=== PATIENT | male | born 1930 | race Hispanic/Latino ===

== ENCOUNTER 2018-01-31 19:09 | Inpatient (IN) | payer OTHER ==
--- OUTSIDE RECORDS SUMMARY | 2018-01-31 19:11 | XMS REPORT | Clinical Summary ---
:1930 Author Organization [facility] Address [address] [place] [address] Care Team Providers Name Role Phone Zack Johnson MD Primary Care Provider Allergies Not on File Current Medications No known medications Active Problems No known active problems Encounters Date Type Specialty Care Team Description 11/26/2017 Office Visit General Surgery Moise Gomez Rectal mass (Primary Dx) ; MD Enio Adenomatous polyp of colon, unspecified part of colon after 01/30/2017 Social History Tobacco Use Types Packs/Day Years Used Date Never Assessed Sex Assigned at Date Recorded Not on file Last Filed Vital Signs Vital Sign Reading Time Taken Blood Pressure 161/75 11/26/2017 11:12 AM [employer] Pulse 56 11/26/2017 11:12 AM [employer] Temperature - - Respiratory Rate - - Oxygen Saturation - - Inhaled Oxygen Concentration - - Weight 78 kg (172 lb) 11/26/2017 11:12 AM [employer] Height 165.1 cm (5' 5") 11/26/2017 11:12 AM [employer] SU[employer] Body Mass Index 28.62 11/26/2017 11:12 AM [employer] Plan of Treatment Date Type Specialty Care Team Description 02/18/2018 Office Visit General Surgery Moise Gomez MD [address] [facility] [address] [place] [address] [id number] 03/09/2018 Surgery General Surgery Moise Gomez ROBOTIC ASSISTED MD Enio LAPAROSCOPIC LOW [address] [facility] COLON [place] [address] [place] [address] 03/09/2018 Procedure Pass General Surgery 03/09/2018 Hospital Encounter General Surgery Moise Gomez MD [address] [facility] [address] [place] [id number] Health Maintenance Due Date Last Done Comments ZOSTER VACCINE 1991 PNEUMOCOCCAL POLYSACCHARIDE VACCINE AGE 65 AND OVER 1996 PNEUMOCOCCAL-13 1996 INFLUENZA VACCINE 06/09/2017 Results Not on fileafter 01/30/2017 Insurance Payer Benefit Plan / Group Subscriber ID Type Phone Address VIANCA [facility] xxxxxxxxx HMO [phone] [place] [id number]
[2018-01-31 20:20] LABS: Absolute Lymphocytes (CBC) 1.1 K/uL (0.7-4.9); Absolute Monocytes 0.6 K/uL (0.1-1.3); Absolute Neutrophil 7.4 K/uL (1.8-8.0); Basophils % 0.7 % (0-1.3); Eosinophils % 1.3 % (0-4.4); Hematocrit 41.3 % (39.6-49.0); Lymphocytes % 11.9 % (15.3-44.8); MCV 88.5 fL (80-100); MPV 7.9 fL (7.6-11.3); Monocytes % 6.9 % (3.3-12.3); RBC Red Blood Cell Count 4.67 M/uL (4.33-5.43)
[2018-01-31] MEDS ORDERED: NA CHLORIDE 0.9% 1,000 ML ONE (20:30)
[2018-01-31] MEDS ORDERED: ONDANSETRON 4 MG/2 ML VIAL ONE (20:30)
[2018-01-31] MEDS ORDERED: MORPHINE 4 MG/ML SYR ONE (20:30)
[2018-01-31 20:32] LABS: Potassium 4.1 mEq/L (3.6-5.0)
[2018-01-31 20:38] LABS: Bilirubin Direct 0.1 mg/dL (0-0.2); Bilirubin Total 0.7 mg/dL (0.3-1.2); Protein, Total 6.8 g/dL (6.0-8.3)
--- NOTE | 2018-01-31 20:50 | RAD REPORT ---
EXAM DESCRIPTION: RAD - Chest Single View - 01/31/2018 8:32 pm CLINICAL HISTORY: Chest pain, abdominal pain COMPARISON: July 2017 TECHNIQUE: AP portable chest image was obtained 2012 hours . FINDINGS: Lungs are clear. Heart and vasculature are normal. No measurable pleural effusion and no p neumothorax. No gross bony abnormality seen. No acute aortic findings suspected. IMPRESSION: No acute cardiopulmonary process. No significant change from comparison.
[2018-01-31 21:07] LABS: Urine Blood NEGATIVE (NEG); Urine Glucose NEGATIVE (NEG); Urine Protein TRACE (NEG); Urine pH 5.5 (5.0-7.0)
[2018-01-31 21:20] LABS: Urine Bacteria NONE SEEN /HPF (NONE SEEN); Urine Culture Reflex Order NOT NEEDED; Urine RBC NONE SEEN /HPF (NONE SEEN)
--- NOTE | 2018-01-31 23:35 | EDPHYS ---
Physician Documentation [facility] Name: Alvaro Rivers Age: 87 yrs Sex: Male : 1930 Arrival Date: 01/31/2018 Time: 19:14 Bed 30 Private MD: Zack Gross R ED Physician Otoniel Seo HPI: 01/31 19:59 This 87 yrs old Male presents to ER via Ambulatory with complaints of General pkl Weakness, Fever. 19:59 The patient presents with abdominal pain that is diffuse, abdominal distention that is pkl diffuse. Onset: The symptoms/episode began/occurred yesterday. The symptoms radiate to back. Associated signs and symptoms: Pertinent positives: nausea. Historical: - Allergies: 19:38 No Known Allergies; aa1 - Home Meds: 19:38 metoprolol tartrate 50 mg Oral tab 1 tab 2 times per day [Active]; pantoprazole 40 mg aa1 oral TbEC 1 tab once daily [Active]; Pravachol 40 mg Oral tab 1 tab once daily [Active]; Plavix 75 mg Oral tab 1 tab once daily [Active]; - PMHx: 19:38 Hypertension; aa1 - PSHx: 19:38 stent x1; aa1 - Immunization history:: Flu vaccine is not up to date. - Social history:: Smoking status: Patient/guardian denies using tobacco, the patient reports quitting approximately 30 years ago. ROS: 19:59 Eyes: Negative for injury, pain, redness, and discharge, ENT: Negative for injury, pkl pain, and discharge, Neck: Negative for injury, pain, and swelling, Cardiovascular: Negative for chest pain, palpitations, and edema, Respiratory: Negative for shortness of breath, cough, wheezing, and pleuritic chest pain. 19:59 Abdomen/GI: Positive for abdominal pain, nausea, abdominal distension, of the right upper quadrant, left upper quadrant, right lower quadrant and left lower quadrant. 19:59 Back: Negative for acute changes. 19:59 : Negative for urinary symptoms. 19:59 MS/extremity: Negative for acute changes. 19:59 Skin: Negative for rash. 19:59 Neuro: Negative for altered mental status. Exam: 19:59 Head/Face: Normocephalic, atraumatic. Eyes: Pupils equal round and reactive to light, pkl extra-ocular motions intact. Lids and lashes normal. Conjunctiva and sclera are non-icteric and not injected. Cornea within normal limits. Periorbital areas with no swelling, redness, or edema. ENT: Nares patent. No nasal discharge, no septal abnormalities noted. Tympanic membranes are normal and external auditory canals are clear. Oropharynx with no redness, swelling, or masses, exudates, or evidence of obstruction, uvula midline. Mucous membranes moist. Neck: Trachea midline, no thyromegaly or masses palpated, and no cervical lymphadenopathy. Supple, full range of motion without nuchal rigidity, or vertebral point tenderness. No Meningismus. Chest/axilla: Normal chest wall appearance and motion. Nontender with no deformity. No lesions are appreciated. Cardiovascular: Regular rate and rhythm with a normal S1 and S2. No gallops, murmurs, or rubs. Normal PMI, no JVD. No pulse deficits. Respiratory: Lungs have equal breath sounds bilaterally, clear to auscultation and percussion. No rales, rhonchi or wheezes noted. No increased work of breathing, no retractions or nasal flaring. 19:59 Abdomen/GI: Inspection: distension, that is mild, Bowel sounds: normal, Palpation: soft, mild abdominal tenderness, in the right upper quadrant and left upper quadrant. 19:59 Back: Exam negative for acute changes. 19:59 : Exam negative for acute changes. 19:59 Musculoskeletal/extremity: Exam is negative for acute changes. 19:59 Skin: Exam negative for rash. 19:59 Neuro: Orientation: is normal, Mentation: is normal, Cranial nerves: grossly normal, Motor: is normal. Vital Signs: 19:38 BP 163 / 64; Pulse 62; Resp 18; Temp 98.7; Pulse Ox 96% on R/A; Weight 78.47 kg (R); aa1 Height 5 ft. 5 in. (165.10 cm); Pain 0/10; 21:13 BP 156 / 82; Pulse 60; Resp 17; Pulse Ox 97% on R/A; rk2 22:00 BP 173 / 72; Pulse 66; Resp 16; Pulse Ox 95% on R/A; rk2 23:53 BP 182 / 68; Pulse 64; Resp 17; Pulse Ox 95% on R/A; rk2 19:38 Body Mass Index 28.79 (78.47 kg, 165.10 cm) aa1 MDM: 19:48 Patient medically screened. pkl 23:31 Data reviewed: vital signs, nurses notes, lab test result(s), EKG, radiologic studies, pkl CT scan. ED course: Talked to Dr. Gross. Admit and consult Dr. Sawant ( Notified). 01/31 19:59 Order name: Amylase, Serum pkl 01/31 19:59 Order name: Basic Metabolic Panel pkl 01/31 19:59 Order name: CBC with Diff pkl 01/31 19:59 Order name: Creatinine for Radiology pk 01/31 19:59 Order name: Hepatic Function pk 01/31 19:59 Order name: Lipase pk 01/31 19:59 Order name: Urine Microscopic Only pk 01/31 20:30 Order name: CBC with Automated Diff; Complete Time: 20:32 EDMS 01/31 20:32 Order name: Basic Metabolic Panel; Complete Time: 21:12 EDMS 01/31 20:32 Order name: Lipase; Complete Time: 21:12 EDMS 01/31 20:38 Order name: Liver (Hepatic) Function; Complete Time: 21:12 EDMS 01/31 20:38 Order name: Amylase Level; Complete Time: 21:12 EDMS 01/31 20:47 Order name: Creatinine (Radiology Only); Complete Time: 21:12 EDMS 01/31 21:00 Order name: Urine Dipstick--Ancillary (enter results) em1 01/31 19:59 Order name: IV Saline Lock; Complete Time: 20:13 pk 01/31 19:59 Order name: Labs collected and sent; Complete Time: 20:13 pk 01/31 19:59 Order name: Urine Dipstick-Ancillary (obtain specimen); Complete Time: 20:59 pk 01/31 19:59 Order name: XRAY CXR (1 view) pk 01/31 19:59 Order name: CT Abd/Pelvis - W/Contrast pk 01/31 20:50 Order name: RAD; Complete Time: 21:12 EDMS 01/31 21:07 Order name: Urine Dipstick-Ancillary; Complete Time: 21:12 EDMS 01/31 21:21 Order name: Urine Microscopic Only; Complete Time: 22:53 EDMS 01/31 23:31 Order name: NG Tube; Complete Time: 00:20 pkl Administered Medications: 20:16 Drug: NS 0.9% 1000 ml Route: IV; Rate: 100 ml/hr; Site: right antecubital; rk2 02/01 00:58 Follow up: Response: No adverse reaction; IV Status: Infusion continued rk2 01/31 20:16 Drug: morphine 2 mg Route: IVP; Site: right antecubital; rk2 23:48 Follow up: Response: No adverse reaction rk2 20:16 Drug: Zofran 4 mg Route: IVP; Site: right antecubital; rk2 23:47 Follow up: Response: No adverse reaction rk2 Disposition: 01/31/18 23:34 Hospitalization ordered by Zack Gross for Inpatient Admission. Preliminary diagnosis is Abdominal pain. Small bowel obstruction. - Bed requested for Telemetry/MedSurg (Inpatient). - Status is Inpatient Admission. rk2 - Condition is Stable. - Problem is new. - Symptoms are unchanged. UTI on Admission? No Signatures: Dispatcher [employer] EDHI Stella Arevalo, RN Ginny Nuñez RN RN aa1 Otoniel Seo MD MD pkIsamar Todd RN RN rk2
--- NOTE | 2018-01-31 23:35 | ER ---
Nurse's Notes [facility] Name: Alvaro Rivers Age: 87 yrs Sex: Male : 1930 Arrival Date: 01/31/2018 Time: 19:14 Bed 30 Private MD: Zack Gross R Diagnosis: Abdominal pain. Small bowel obstruction Presentation: 01/31 19:34 Presenting complaint: Patient states: abd pain that radiates to back and fatigue since aa1 yesterday. Pt reports he felt like he may have had a fever but didn't check his temperature. Transition of care: patient was not received from another setting of care. Onset of symptoms was January 30, 2018. Care prior to arrival: None. 19:34 Method Of Arrival: Ambulatory aa1 19:34 Acuity: VIRGILIO 3 aa1 Triage Assessment: 19:38 General: Appears in no apparent distress. comfortable, Behavior is calm, cooperative, aa1 appropriate for age. 20:18 Pain: Denies pain. rk2 Historical: - Allergies: 19:38 No Known Allergies; aa1 - Home Meds: 19:38 metoprolol tartrate 50 mg Oral tab 1 tab 2 times per day [Active]; pantoprazole 40 mg aa1 oral TbEC 1 tab once daily [Active]; Pravachol 40 mg Oral tab 1 tab once daily [Active]; Plavix 75 mg Oral tab 1 tab once daily [Active]; - PMHx: 19:38 Hypertension; aa1 - PSHx: 19:38 stent x1; aa1 - Immunization history:: Flu vaccine is not up to date. - Social history:: Smoking status: Patient/guardian denies using tobacco, the patient reports quitting approximately 30 years ago. Screenin:17 Abuse screen: Denies threats or abuse. Nutritional screening: No deficits noted. rk2 Tuberculosis screening: No symptoms or risk factors identified. Fall Risk IV access (20 points). Assessment: 20:18 General: Appears in no apparent distress. well developed, well nourished, Behavior is rk2 calm, cooperative. Pain: Denies pain. Neuro: Level of Consciousness is alert, obeys commands, Oriented to person, place, time, situation. Respiratory: Airway is patent Respiratory effort is even, unlabored, Respiratory pattern is regular, symmetrical. GI: Abdomen is distended, Abd is non tender X 4 quads Reports bloating. Derm: Skin is pink, warm \T\ dry. 20:21 Reassessment: Pt. completed oral contrast... CT notified. rk2 21:10 Reassessment: Pt. resting in room, family \T\ bedside... Iv fluids infusing. Pt. appears rk2 to be in no obvious distress. Voiced no needs \T\ this time. 22:42 Reassessment: Pt. is resting in room \T\ this time, family \T\ bedside. Pt. appears to be rk 2 in no obvious distress... no needs voiced. Waiting results. 02/01 00:15 Reassessment: NG tube placed right nostril and hooked up to low interm. suction. rk2 Verified by wilfredo. return and air bolus. 00:33 Reassessment: Report called to Elo AREVALO... pt. to be transported to [place] [address] rk2 by tech. Vital Signs: 01/31 19:38 BP 163 / 64; Pulse 62; Resp 18; Temp 98.7; Pulse Ox 96% on R/A; Weight 78.47 kg (R); aa1 Height 5 ft. 5 in. (165.10 cm); Pain 0/10; 21:13 BP 156 / 82; Pulse 60; Resp 17; Pulse Ox 97% on R/A; rk2 22:00 BP 173 / 72; Pulse 66; Resp 16; Pulse Ox 95% on R/A; rk2 23:53 BP 182 / 68; Pulse 64; Resp 17; Pulse Ox 95% on R/A; rk2 19:38 Body Mass Index 28.79 (78.47 kg, 165.10 cm) aa1 ED Course: 19:14 Patient arrived in ED. es 19:15 Zack Gross MD is Private Physician. es 19:36 Triage completed. aa1 19:38 Arm band placed on left wrist. Patient placed in an exam room, on a stretcher. aa1 19:41 Isamar Stevenson RN is Primary Nurse. rk2 19:48 Otoniel Seo MD is Attending Physician. pkl 20:13 Initial lab(s) drawn, by ED staff, sent to lab. Inserted saline lock: 22 gauge in right dh3 antecubital area, using aseptic technique. Blood collected. 20:16 XRAY CXR (1 view) Sent. rk2 20:17 Patient has correct armband on for positive identification. Placed in gown. Bed in low rk2 position. Call light in reach. 20:28 X-ray completed. Portable x-ray completed in exam room. Patient tolerated procedure kp1 well. 23:33 Zack Gross MD is Hospitalizing Provider. pkl 23:47 CT Abd/Pelvis - W/Contrast Sent. rk2 02/01 00:58 No provider procedures requiring assistance completed. Patient admitted, IV remains in rk2 place. Administered Medications: 01/31 20:16 Drug: NS 0.9% 1000 ml Route: IV; Rate: 100 ml/hr; Site: right antecubital; rk2 02/01 00:58 Follow up: Response: No adverse reaction; IV Status: Infusion continued rk2 01/31 20:16 Drug: morphine 2 mg Route: IVP; Site: right antecubital; rk2 23:48 Follow up: Response: No adverse reaction rk2 20:16 Drug: Zofran 4 mg Route: IVP; Site: right antecubital; rk2 23:47 Follow up: Response: No adverse reaction rk2 Outcome: 23:34 Decision to Hospitalize by Provider. pkl 02/01 00:58 Admitted to Med/surg rk2 Condition: good Instructed on the need for admit. 00:59 Patient left the ED. rk2 Signatures: Ginny Simmons RN RN aa1 Otoniel Seo MD MD pkl Marion Chan Kathy 1 Marry Alcala 3 Isamar Stevenson RN RN rk2
[2018-01-31] MEDS: D5 0.45 NS 1,000 ML IV SCH (23:45)
[2018-01-31] MEDS ORDERED: PROMETHAZINE 25 MG/ML VIAL IV PRN (23:52)
[2018-02-01 01:08] VITALS: BMI 28.3
[2018-02-01] MEDS ORDERED: LABETALOL 20 MG/4ML SYRINGE IV ONE (01:12)
[2018-02-01] MEDS: D5 0.45 NS 1,000 ML IV SCH ×5 (01:32→23:45)
[2018-02-01] MEDS: METRONIDAZOLE 500mg IVPB 500 MG/100 ML BAG IV SCH ×4 (01:33→17:15)
[2018-02-01] MEDS: Levofloxacin500mg IV 500 MG/100 ML BAG IV SCH (02:25)
[2018-02-01 04:18] LABS: Absolute Neutrophil 12.1 K/uL (1.8-8.0); Basophils % 1.1 % (0-1.3); Eosinophils % 0.3 % (0-4.4); Hematocrit 39.8 % (39.6-49.0); Lymphocytes % 7.2 % (15.3-44.8); MCH 29.7 pg (27.0-35.0); MCV 89.8 fL (80-100); MPV 8.3 fL (7.6-11.3); Monocytes % 6.8 % (3.3-12.3); RBC Red Blood Cell Count 4.43 M/uL (4.33-5.43)
[2018-02-01 04:36] LABS: Potassium 3.7 mEq/L (3.6-5.0)
--- NOTE | 2018-02-01 07:50 | RAD REPORT ---
EXAM DESCRIPTION: CT - Abdomen Pelvis W Contrast - 01/31/2018 10:31 pm CLINICAL HISTORY: Abdominal pain, abdominal distention. A preliminary written report was provided at the time of the study, and the report was reviewed prio r to final dictation. COMPARISON: CT study July 2017 TECHNIQUE: Biphasic, helical CT imaging of the abdomen and pelvis was performed following 100 ml non -ionic IV contrast. Oral contrast was given. All CT scans are performed using dose optimization technique as appropriate and may include automated exposure control or mA/KV adjustment according to patient size. FINDINGS: No suspicious findings in the lung bases. The liver, spleen, and pancreas show no suspicious findings. Gallbladder and biliary tree are also wi thout suspicious finding. Symmetric renal function is seen with no hydronephrosis or suspicious renal mass. No pyelonephritis o r acute renal parenchymal process. No urinary bladder abnormality. Prostate gland and seminal vesicle s within normal limits. Stomach is distended by retained oral contrast. No gastric wall thickening or mass. The majority of t he oral CT contrast remains within the stomach. CT contrast has reached the distal ileum. Colon is mo stly decompressed. Left-side is redundant. An active colon process is not suspected. Appendix is not clearly identified. Proximal small bowel loops of the jejunum and proximal most ileum are dilated. Th ere is a transition point in the right mid abdomen without a discrete mass. No wall thickening or adj acent inflammatory stranding. No free air, free fluid or inflammatory stranding. No mass or bulky ly mphadenopathy. Minimal amounts of fat extends into the origin of each inguinal canal. No adrenal abno rmality. Prominent disc and bony degenerative changes are present. Vascular calcifications present without an acute component. IMPRESSION: Small bowel obstruction pattern is present with a relatively smooth transition in the ri ght mid abdomen proximal ileum level. Near the transition site there is no mass or definitive etiology. No inflammatory stranding in this r egion. No free air, abscess or other surgically emergent finding.
--- NOTE | 2018-02-01 11:18 | RAD REPORT ---
EXAM DESCRIPTION: RAD - Abdomen W Erect - 02/01/2018 11:07 am CLINICAL HISTORY: Small bowel obstruction, abnormal CT study COMPARISON: CT study August 03 TECHNIQUE: Supine and upright views of the abdomen were obtained. FINDINGS: Tip of the NG tube is at the GE junction. Stomach is decompressed. Contrast is present within the urinary bladder from the earlier CT study. There is some diluted remna nt contrast within the GI tract as well. Oral CT contrast is seen in the left side of the colon indic ating that the CT contrast has migrated passed any small bowel obstruction. The patient continues to have mildly dilated proximal small bowel loops. Air-fluid levels are identifiable. No free air or pneumatosis. No extravasation of contrast. Lumbar spine degenerative changes are present. IMPRESSION: Proximal small bowel loops remain prominent. No progressive small bowel obstruction. No free air, pneumatosis or other surgically emergent finding. The oral CT contrast has reached the left side of the colon indicating transit distal to any transiti on point or partial obstruction of the small bowel.
[2018-02-01] MEDS: HYDRALAZINE HCL 20 MG/ML VIAL IV PRN ×2 (11:32→20:38)
--- NOTE | 2018-02-01 14:16 | CON ---
Date of Consultation: 01/31/2018 Reason: Small bowel obstruction. History Of Present Illness: The patient is an 87-year-old gentleman presented to the emergency room with abdominal distention, some nausea but no vomiting. He did have a bowel movement yesterday and s tates that he is passing minimal flatus. No sore throat, runny nose, cough, headaches, or dizziness. No chest pain. No fever or chills. The patient had an unknown type of colon surgery and appendect reyna for perforated appendicitis a long time ago. Review of Systems: Otherwise unremarkable. Past Medical History: Significant for hypertension. Past Surgical History: Colon resection or abdominal surgery x2. Details unavailable. These surgeri es were done greater than 40 years ago and family does not know. Allergies: NO ALLERGIES. Social History: He does not smoke. Does not drink alcohol. Physical Examination: Vital Signs: Stable. He is afebrile. General: He is awake, alert, orient x3. Head and Neck: Cranial nerves 2 through 12 grossly within normal limits. No neck masses. No JVD. Throat clear. Neck is supple. Chest: Clear. Heart: S1, S2. Abdomen: Distended hypoactive bowel sounds. Minimal tenderness, but no rebound, rigidity, or guardi ng. No abdominal wall hernia appreciated. Extremity: Adequately perfused. Nontender. Neuro: Nonfocal. Laboratory Data: His white count this morning is 14.3 with a left shift. Chemistry, he is not acido tic. Glucose is 162. CT of the abdomen and pelvis reviewed with Dr. Mcmillan and essentially shows s mall bowel obstruction pattern with a relatively smooth transition in the right mid abdomen proximal ileum level. Near the incision site, there is no mass or definitive etiology. No inflammatory stran ding in this region. No free air, abscess or other surgically emergent finding. Assessment: Small-bowel obstruction. Recommendation: Continue n.p.o. NG tube, IV fluid, IV antibiotic. We will get an abdominal x-ray to monitor the progress of the bowel obstruction. The family states that he is scheduled to see Dr. Jonas prabhakar at [facility] for colon surgery because he had something in his colon that Dr. Brooks found, the details of that are unavailable at this time. My recommendation would be to get more informatio n from Dr. Brooks's office as soon as we can and then if the patient improves with conservative measure s, he can follow up at [facility] should he not improve with conservative measures and need a surgery then I think he should be transferred to [facility] for definitive surgery for his colon issues as wel l as his obstructive issue. Plan of care was discussed in detail with Dr. Gross. AMBROSIO/JAYNA Voice ID: [id number] Report ID: [id number]
--- NOTE | 2018-02-01 18:25 | HP ---
Date of Admission: 01/31/2018 Chief Complaint: Abdominal pain. History Of Present Illness: An 87-year-old male was brought to the emergency room because of 1 day o nset of abdominal pain radiating to the back. The patient had evaluation done in the emergency room. I was told that CT scan showed evidence of small bowel obstruction. The patient is admitted. Ther e is no history of vomiting of blood. No history of fever, chills, rigors. Past Medical History: Positive for hypertension. Family History: Noncontributory. Personal History: Nonsmoker. Allergies: NO KNOWN ALLERGIES. Home Medicines: Lopressor, Protonix, Pravachol, and Plavix. The patient has history of coronary artery disease and right coronary artery stenting in the past. Physical Examination: General: Revealed 87-year-old male, comfortable at rest. HEENT: Negative. Neck: Supple. JVD negative. Chest: Clear. Heart: Regular. Abdomen: Mild tenderness in the umbilical area. No palpable mass. Extremities: No edema. Neurologic: Negative. Laboratory Data: White count [id number] scan of the abdomen report not available. Chest x-ray showed no evidence of pneumonia or acute process. Assessment: 1.Small bowel obstruction as per ER physician. 2.History of gastrointestinal workup in July, however, reports are not available. This was don e by Dr. Brooks. 3.Known coronary artery disease status post stenting. 4.Hypertension. Plan: N.p.o. NG suction. Hold Plavix. ASIA/MODL Voice ID: [id number]
[2018-02-01] MEDS: PANTOPRAZOLE 40 MG INJ IVP SCH (22:26)
[2018-02-02] MEDS: MORPHINE 4 MG/ML SYR IV PRN ×4 (00:28→23:31)
[2018-02-02] MEDS: METRONIDAZOLE 500mg IVPB 500 MG/100 ML BAG IV SCH ×5 (01:16→23:23)
--- NOTE | 2018-02-02 01:41 | HP ---
Date of Admission: 01/31/2018 Chief Complaint: Abdominal pain radiating to back. History Of Present Illness: An 87-year-old male was brought to the emergency room with abdominal cata n radiating to back. The patient had a CAT scan and this showed evidence of small bowel obstruction. The patient was seen by Dr. Sawant. Full H and P was dictated earlier. ASIA/JAYNA Voice ID: [id number]
[2018-02-02] MEDS: Levofloxacin500mg IV 500 MG/100 ML BAG IV SCH ×2 (01:51→23:23)
[2018-02-02] MEDS: D5 0.45 NS 1,000 ML IV SCH ×3 (06:09→23:45)
[2018-02-02] MEDS: SODIUM CHLORIDE 0.9% 10ML INJ IV PRN (09:57)
[2018-02-02] MEDS: PANTOPRAZOLE 40 MG INJ IVP SCH ×2 (09:57→21:43)
--- NOTE | 2018-02-02 10:20 | RAD REPORT ---
EXAM DESCRIPTION: RAD - Abdomen W Erect - 02/02/2018 9:09 am CLINICAL HISTORY: Abdominal pain FINDINGS: Free air is not seen beneath the diaphragm. A nasogastric tube has its tip 3 centimeters into the stomach. Contrast is present within the colon. Several mildly dilated loops of small bowel are present mildly improved from the prior exam Mild improvement in the mild partial small bowel obstruction IMPRESSION: Mild improvement in the mild partial small bowel obstruction
[2018-02-02] MEDS: HYDRALAZINE HCL 20 MG/ML VIAL IV PRN ×2 (16:51→23:31)
--- NOTE | 2018-02-02 17:54 | PN ---
Date of Progress Note: 02/02/2018 Subjective: The patient is passing gas. Had a bowel movement. Objective: Vital Signs: Stable. Afebrile. Abdomen: Less distended. Soft. Positive bowel sounds. Diagnostic Data: Abdominal x-ray shows improvement. Assessment: Small-bowel obstruction, slowly improving. Recommendation: Continue IV fluids and antibiotics. We will clamp the NG tube and start the patient on sips of clear liquids. Hopefully discharge in 24 to 48 hours. AMBROSIO/JAYNA Voice ID: [id number] Report ID: [id number]
--- NOTE | 2018-02-02 20:45 | CON ---
Date of Consultation: 02/02/2018 Reason For Consultation: Bowel obstruction. GI bleeding. History Of Present Illness: Mr. Rivers is an 87-year-old gentleman, who presented to the hospital wit h what seems to be a small bowel obstruction. He had nausea and vomiting. However, he is already fe eling better. NG tube is aspirating dark biliary material. However, at the same time, he is reporte d to have GI bleeding. The GI bleeding was bright red blood. Had only 1 episode. Has not been recu rring. Denies any weakness, dizziness. Denies any abdominal pain at this time. Denies any other ne w onset of hematemesis, melena, or hematochezia since that time. CT scan showed small bowel obstruct ion pattern. The patient had undergone a colonoscopy on November 12 of this year with finding of numerous and flat polyposis. He had previous 2 colectomies due to complicated polyposis. 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 Consult was initiated with colorectal surgeon Dr. Santa with probable creation of a J pouch. Past Medical History: Hypertension, diabetes. Past Surgical History: Numerous polyposis and colectomy x2. Family History: Denies any gastrointestinal malignancy in the family, although a lot of family membe rs did not have any checkup for colorectal neoplasia. Social History: No alcohol or tobacco. Psychiatric History: None. Allergies: REVIEWED IN THE CHART. Medications: Reviewed in the chart. Review of Systems: General: Prior to acute onset of his illness, no fever, chills. No weight loss weight gain. No jose nge of appetite. GI: As elaborated above. Hematologic: Denies any history of jaundice, hepatitis, any other liver issue. Pulmonary: No shortness of breath, cough or expectoration. Cardiac: No palpitation, heart murmur. No orthopnea or dyspnea. Genitourinary: Just dysuria and low flow state. Musculoskeletal: Some arthralgia and stiffness, especially in the morning. Neuropsychiatric: None. Neuroendocrine: None. Physical Examination: General: Elderly male, at this time. No other acute distress noted. Hemodynamic respiratory profil e within normal range. HEENT: Atraumatic, normocephalic. No pallor. No icterus. No temporal wasting. No facial wasting. Neck: Supple. No lymphadenopathy. Trachea central in position. Chest: Clear to auscultation percussion. Cardiovascular: Normal S1, S2. No S3, no S4. Abdomen: Soft, nontender, nondistended. Excellent bowel sounds in all quadrants. No hepatomegaly. No splenomegaly. No rebound tenderness. Scars are well healed. No discharge. Extremities: Upper and lower extremities are normal, symmetrical. Dermatologic: Examination normal. Neurologic: Alert and oriented x3. Intact memory, mentation, and judgment. Diagnostic Data: Reviewed and analyzed. CT scan as elaborated above. Hemoglobin and hematocrit 13 and 39 respectively. Impression/plan/recommendation: Mr. Rivers is an 87-year-old gentleman with bright red blood. This c ould be diverticular bleeding or could be temporary volvulus that has resolved. At this time, patitristan coto seems to be doing fine. We can start him to try on clear liquid diet. If he tolerates, NG tube co uld be discontinued. Also agree with empiric antibiotic. With respect to numerous colon polyps and also past colectomy x2, he will be most benefitted from por penny colectomy with probably preservation of anal sphincter and J pouch creation. Consult was already initiated Dr. Gomez, and the patient is to follow through this. This could be done once his acute co ndition has resolved. For the time being, continue to treat him with antibiotics, since especially he has an elevated white cell count. We plan not to do any invasive procedure while he is in acute stage since he has signif icant colorectal pathology already known to us. However if he has exsanguinating bleeding, we will n ot hesitate to go back in. I had a discussion with the patient. His questions were answered to his satisfaction as much as I co uld in [place]. LORENZA/JAYNA Voice ID: [id number] Report ID: [id number]
--- NOTE | 2018-02-03 01:40 | PN ---
The patient had a small bowel movement and he is passing gas, which probably is indicative of improve ment of his bowel obstruction. There is no sammi blood . However, GI consultation has bee n done. The patient's x-ray shows improvement of the bowel obstruction. He will have repeat assessm ent and x-ray tomorrow. ASIA/JAYNA Voice ID: [id number] Report ID: [id number]
[2018-02-03] MEDS: METRONIDAZOLE 500mg IVPB 500 MG/100 ML BAG IV SCH ×4 (06:10→23:18)
[2018-02-03] MEDS: D5 0.45 NS 1,000 ML IV SCH ×4 (06:14→23:20)
--- NOTE | 2018-02-03 06:34 | PN ---
The patient's abdomen is soft and he has good bowel sounds; however, he did not have any bowel moveme nt. The patient will have repeat x-ray today to see whether there is further reduction of bowel obst ruction. ASIA/JAYNA Voice ID: [id number] Report ID: [id number]
[2018-02-03] MEDS: SODIUM CHLORIDE 0.9% 10ML INJ IV PRN (08:41)
[2018-02-03] MEDS: PANTOPRAZOLE 40 MG INJ IVP SCH ×2 (08:41→20:44)
[2018-02-03] MEDS: HYDRALAZINE HCL 20 MG/ML VIAL IV PRN (08:41)
[2018-02-03] MEDS: ACETAMINOPHEN 500 MG TAB PO PRN ×2 (12:34→20:43)
--- NOTE | 2018-02-03 13:46 | PN ---
Date of Progress Note: 02/03/2018 Subjective: The patient is awake, alert, no complaint, passing gas. NG tube he accidentally pulled out. Tolerating clear liquids. His residuals are minimal. Objective: Vital Signs: Stable, afebrile. Abdomen: Benign, soft, nondistended, nontender. Positive bowel sounds. Assessment: Small bowel obstruction, resolved. Recommendations: I reviewed the consultation by Todd. The patient has what appears to be familial p olyposis and he is scheduled for a total colectomy in [place] and we should proceed with that in [facility] as he may need a J pouch creation. As far as his small bowel obstruction, we will advance his di et when he is tolerating diet and he is cleared from Surgery for discharge followup at the [facility]. AMBROSIO/JAYNA Voice ID: [id number] Report ID: [id number]
[2018-02-03] MEDS: Levofloxacin500mg IV 500 MG/100 ML BAG IV SCH (23:13)
[2018-02-04 01:22] VITALS: O2SAT 95
[2018-02-04] MEDS: HYDRALAZINE HCL 20 MG/ML VIAL IV PRN ×2 (03:58→08:47)
[2018-02-04] MEDS: D5 0.45 NS 1,000 ML IV SCH (03:59)
[2018-02-04 04:22] LABS: Absolute Lymphocytes (CBC) 1.4 K/uL (0.7-4.9); Absolute Monocytes 0.9 K/uL (0.1-1.3); Absolute Neutrophil 2.7 K/uL (1.8-8.0); Basophils % 0.9 % (0-1.3); Eosinophils % 6.5 % (0-4.4); Hematocrit 37.1 % (39.6-49.0); Lymphocytes % 25.4 % (15.3-44.8); MCV 89.5 fL (80-100); MPV 8.4 fL (7.6-11.3); Monocytes % 16.5 % (3.3-12.3); RBC Red Blood Cell Count 4.15 M/uL (4.33-5.43)
[2018-02-04 05:00] VITALS: TEMP 98.2
[2018-02-04 05:02] LABS: Blood Morphology Comment NOT SEEN (NOT SEEN); Platelet Estimate ADEQ; Urine White Blood Cell Casts OK
[2018-02-04] MEDS: METRONIDAZOLE 500mg IVPB 500 MG/100 ML BAG IV SCH ×2 (06:34→11:23)
[2018-02-04] MEDS: SODIUM CHLORIDE 0.9% 10ML INJ IV PRN (08:04)
[2018-02-04] MEDS: PANTOPRAZOLE 40 MG INJ IVP SCH (08:04)
[2018-02-04] MEDS: ACETAMINOPHEN 500 MG TAB PO PRN (09:50)
--- NOTE | 2018-02-04 12:07 | PN ---
Date of Progress Note: 02/04/2018 Subjective: The patient is awake, alert, tolerating full liquids, having bowel movements. Objective: Vital Signs: Stable. Afebrile. Abdomen: Completely benign. Assessment: Small bowel obstruction, resolved. Recommendations: The patient is cleared from Surgery for discharged. Follow up with colorectal surg snehal in [place] for total colectomy. /MODL Voice ID: [id number] Report ID: [id number]
[2018-02-04 12:55] VITALS: BP 154/78
--- NOTE | 2018-02-28 23:44 | DS ---
Date of Discharge: 02/04/2018 Final Diagnoses: 1.Small bowel obstruction. 2.Recently diagnosed colon cancer. 3.Known coronary artery disease. 4.Status post angioplasty. 5.Hypertension. Hospital Course: This 87-year-old male was brought to the emergency room because of abdominal pain. He had a CAT scan done which showed evidence of small bowel obstruction. The patient had NG tube in sertion and suction as well as surgical consultation. The patient showed improvement over the next f ew days with a decreased abdominal distention. Eventually, the patient was discharged home on 02/04. He still had unresected colon cancers. The patient was advised to follow up with his surgeon as in dicated in the past. Laboratory Data: Please refer to the chart. ASIA/JAYNA Voice ID: [id number] Report ID: [id number]
== END 2018-02-04 13:53 | disposition home or self-care (01) | DRG 389 ==
LOC: ER 19:09 → ERHOLD 23:44 → 4TH 02-01 00:15
PROVIDERS: ADMIT Internal Medicine; ATTEND Internal Medicine
DX: K56.609 Unspecified intestinal obstruction, unspecified as to partial versus complete obstruction (principal); K92.2 Gastrointestinal hemorrhage, unspecified; D12.6 Benign neoplasm of colon, unspecified; I10 Essential (primary) hypertension; E11.9 Type 2 diabetes mellitus without complications
CPT/HCPCS: 36415; 71045; 74019; 74177; 80048; 80076; 81003; 81015; 82150; 83690; 85025; 96361; 96374; 96375; 99285; C9113; J0360; J2405; J7030; Q9967

== ENCOUNTER 2018-02-19 21:45 | Inpatient (IN) | payer OTHER ==
--- OUTSIDE RECORDS SUMMARY | 2018-02-19 21:48 | XMS REPORT | Clinical Summary ---
:1930 Author Organization [facility] Address [address] [place] [address] Care Team Providers Name Role Phone Zack Johnson MD Primary Care Provider Allergies No Known Allergies Current Medications Prescription Sig. Disp. Refills Start Date End Date Status lisinopril Take 20 mg by Active (PRINIVIL,ZESTRIL) 20 mg mouth daily. tablet clopidogrel (PLAVIX) 75 mg Take 75 mg by Active tablet mouth daily. pravastatin (PRAVACHOL) 40 Take 40 mg by Active MG tablet mouth daily. pantoprazole (PROTONIX) 40 Take 40 mg by Active MG EC tablet mouth daily. metoprolol tartrate Take 50 mg by Active (LOPRESSOR) 50 mg tablet mouth 2 (two) times a day. bimatoprost (LUMIGAN) 0.01 1 drop as needed. Active % ophthalmic drops Active Problems No known active problems Encounters Date Type Specialty Care Team Description 02/16/2018 Pre-Admit Testing Pre-Admission Moise Gomez Preop testing Appointment Testing MD Enio (Primary Dx) 02/16/2018 Office Visit General Surgery Moise Gomez MD Alagugurusamy, Virginia Burnett, NP-C 02/16/2018 Orders Only General Surgery Moise Gomez MD 11/26/2017 Office Visit General Surgery Moise Gomez Rectal mass (Primary Dx) ; MD Enio Adenomatous polyp of colon, unspecified part of colon after 02/18/2017 Social History Tobacco Use Types Packs/Day Years Used Date Former Smoker Smokeless Tobacco: Never Used Alcohol Use Drinks/Week oz/Week Comments Yes Sex Assigned at Date Recorded Not on file Last Filed Vital Signs Vital Sign Reading Time Taken Blood Pressure 163/72 02/16/2018 12:42 PM CDT Pulse 55 02/16/2018 12:42 PM CDT Temperature 35.4 C (95.8 F) 02/16/2018 12:42 PM CDT Respiratory Rate 18 02/16/2018 12:42 PM CDT Oxygen Saturation 96% 02/16/2018 12:42 PM CDT Inhaled Oxygen Concentration - - Weight 77.1 kg (170 lb) 02/16/2018 12:42 PM CDT Height 162.6 cm (5' 4") 02/16/2018 12:42 PM CDT Body Mass Index 29.18 02/16/2018 12:42 PM CDT Plan of Treatment Date Type Specialty Care Team Description 02/16/2018 Anesthesia Event General Surgery Vu Gant, EMERGENCY PHYSICIAN [address] [facility] [address] [place] [address] 03/09/2018 Surgery General Surgery Moise Gomez ROBOTIC ASSISTED MD Enio LAPAROSCOPIC LOW [address] [facility] [address] [place], [place] [id number] 03/09/2018 Procedure Pass General Surgery 03/09/2018 Hospital Encounter General Surgery Moise Gomez MD [address] [facility] [address] [place], [place] [id number] Health Maintenance Due Date Last Done Comments ZOSTER VACCINE 1991 PNEUMOCOCCAL POLYSACCHARIDE VACCINE AGE 65 AND OVER 1996 PNEUMOCOCCAL-13 1996 INFLUENZA VACCINE 06/09/2018 Results Estimated GFR (02/16/2018 12:39 PM) Component Value Ref Range GFR Non Af Amer 57 (A) mL/min/1.73 m2 GFR Af Amer 69 mL/min/1.73 m2 Comment: Chronic kidney disease: <60 mL/min/1.73m2 Kidney failure: <15 mL/min/1.73m2 The estimated GFR is calculated from the IDMS-traceable Modification of Diet in Renal Disease Equation. The accuracy of the calculation is poor when the creatinine is normal. Calculated values >90 mL/min/1.73m2 are not reported. This equation has not been validated in children (<18 years), women, the elderly (>70 years), or ethnic groups other than Caucasians and Americans. Specimen Performing Laboratory Plasma specimen [facility] DEPARTMENT OF PATHOLOGY AND GENOMIC MEDICINE [address] [place] [id number] CBC with platelet and differential (02/16/2018 12:39 PM) Component Value Ref Range WBC 6.97 4.50 - 11.00 k/uL RBC 4.31 (L) 4.40 - 6.00 m/uL HGB 13.2 (L) 14.0 - 18.0 g/dL HCT 39.9 (L) 41.0 - 51.0 % MCV 92.6 82.0 - 100.0 fL MCH 30.6 27.0 - 34.0 pg MCHC 33.1 31.0 - 37.0 g/dL RDW - SD 45.1 37.0 - 55.0 fL MPV 9.9 8.8 - 13.2 fL Platelet count 247 150 - 400 k/uL Nucleated RBC 0.00 /100 WBC Neutrophils 61.0 39.0 - 69.0 % Lymphocytes 23.1 (L) 25.0 - 45.0 % Monocytes 10.2 (H) 0.0 - 10.0 % Eosinophils 4.0 0.0 - 5.0 % Basophils 1.1 (H) 0.0 - 1.0 % Immature granulocytes 0.6Comment: "Immature granulocytes" 0.0 - 1.0 % (promyelocytes, myelocytes, metamyelocytes) Specimen Performing Laboratory Blood [facility] DEPARTMENT OF PATHOLOGY AND [facility] MEDIC[facility] [address] [place] [id number] Type and screen (02/16/2018 12:39 PM) Component Value Ref Range ABO grouping O Rh type POS Antibody screen (gel) NEG Specimen Performing Laboratory Blood [facility] DEPARTMENT OF PATHOLOGY AND [facility] [address] [place] [id number] Comprehensive metabolic panel (02/16/2018 12:39 PM) Component Value Ref Range Sodium 139 135 - 148 mEq/L Potassium 5.1 (H) 3.5 - 5.0 mEq/L Chloride 99 98 - 112 mEq/L CO2 29 24 - 31 mEq/L Anion gap 11 7 - 15 mEq/L Comment: Starting from February , anion gap calculation no longer incorporates potassium. Please note the change. BUN 13 8 - 23 mg/dL Creatinine 1.2 0.7 - 1.2 mg/dL Glucose 101 (H) 65 - 99 mg/dL Calcium 9.2 8.8 - 10.2 mg/dL Protein 6.7 6.3 - 8.3 g/dL Comment: 4.6-7.0 g/dL 1 week 4.4-7.6 g/dL 7 months-1year5.1-7.3 g/dL 1-2 years5.6-7.5 g/dL >3 years6.0-8.0 g/dL 18-150 6.3-8.3 g/dL Albumin 3.4 (L) 3.5 - 5.0 g/dL A/G ratio 1.0 0.7 - 3.8 Alkaline phosphatase 69 40 - 129 U/L AST 24 10 - 50 U/L ALT 19 5 - 50 U/L Total bilirubin 0.3 0.0 - 1.2 mg/dL Specimen Performing Laboratory Plasma specimen [facility] DEPARTMENT OF PATHOLOGY AND GENOMIC MEDICINE [address] [place] [id number] after 02/18/2017 Insurance Payer Benefit Plan / Group Subscriber ID Type Phone Address [facility] x[facility] O [phone] [place] [phone]
[2018-02-19] MEDS ORDERED: NA CHLORIDE 0.9% 1,000 ML ONE (23:06)
[2018-02-19] MEDS ORDERED: ACETAMINOPHEN 500 MG TAB ONE (23:06)
[2018-02-19 23:10] LABS: Absolute Monocytes 2.1 K/uL (0.1-1.3); Absolute Neutrophil 16.4 K/uL (1.8-8.0); Basophils % 0.4 % (0-1.3); Hematocrit 39.2 % (39.6-49.0); MCH 29.8 pg (27.0-35.0); MCV 88.7 fL (80-100); MPV 8.1 fL (7.6-11.3); Monocytes % 10.6 % (3.3-12.3); RBC Red Blood Cell Count 4.42 M/uL (4.33-5.43)
[2018-02-19 23:22] LABS: Potassium 3.6 mEq/L (3.6-5.0)
[2018-02-19 23:28] LABS: Albumin 3.8 g/dL (3.2-5.5); Bilirubin Direct 0.5 mg/dL (0-0.2); Bilirubin Total 1.9 mg/dL (0.3-1.2)
[2018-02-19 23:57] LABS: Urine Blood 3+ (NEG); Urine Glucose NEGATIVE (NEG); Urine Protein 3+ (NEG)
[2018-02-20 00:02] LABS: Urine Bacteria LOADED /HPF (NONE SEEN); Urine Culture Reflex Order REFLEXED; Urine RBC >50 /HPF (NONE SEEN)
[2018-02-20] MEDS ORDERED: CEFTRIAXONE/SWI 1gm 2 GM/20 ML SYR ONE (00:30)
[2018-02-20] MEDS ORDERED: NA CHLORIDE 0.9% 1,000 ML ONE (00:31)
--- NOTE | 2018-02-20 00:46 | ER ---
Nurse's Notes [facility] Name: Alvaro Rivers Age: 87 yrs Sex: Male : 1930 Arrival Date: 02/19/2018 Time: 21:49 Bed 3 Private MD: Zack Gross R Diagnosis: Urosepsis Presentation: 02/19 21:54 Presenting complaint: Patient states: I have been having a sharp pain in my lower back, la1 burning with urination, and vomiting. Transition of care: patient was not received from another setting of care. Onset of symptoms was February 19, 2018. Care prior to arrival: None. 21:54 Method Of Arrival: Wheelchair la1 21:54 Acuity: VIRGILIO 3 la1 Historical: - Allergies: 21:55 No Known Allergies; la1 - Home Meds: 23:34 Plavix 75 mg Oral tab 1 tab once daily [Active]; lisinopril 20 mg Oral tab 1 tab once lp1 daily [Active]; metoprolol tartrate 50 mg Oral tab 1 tab 2 times per day [Active]; pravastatin 40 mg oral tab nightly [Active]; - PMHx: 21:55 Hypertension; la1 - Immunization history:: Adult Immunizations up to date. - Social history:: Smoking status: Patient/guardian denies using tobacco. Screenin:02 Abuse screen: Denies threats or abuse. Denies injuries from another. Nutritional lp1 screening: No deficits noted. Tuberculosis screening: No symptoms or risk factors identified. Fall Risk Total Stack Fall Scale indicates High Risk Score (45 or more points). Fall prevention measures have been instituted. Side Rails Up X 2 Family Present and informed to notify staff if the need to leave the bedside As available patient and family educated on Fall Prevention Program and Strategies. Assessment: 22:30 General: Appears in no apparent distress. Behavior is calm, cooperative, appropriate lp1 for age. Pain: Complains of pain in left lateral posterior chest Pain currently is 6 out of 10 on a pain scale. Neuro: Level of Consciousness is awake, alert, obeys commands, Oriented to person, place, situation. Cardiovascular: Patient's skin is warm and dry. Rhythm is sinus rhythm. Respiratory: Respiratory effort is even, unlabored, Respiratory pattern is regular, symmetrical, Breath sounds are clear bilaterally. GI: Abdomen is round Bowel sounds present X 4 quads. Abdomen is tender to palpation in left upper quadrant Reports upper abdominal pain, diarrhea, vomiting. : Reports burning with urination, cramping. EENT: No signs and/or symptoms were reported regarding the EENT system. Derm: Skin is pink, warm \T\ dry. Musculoskeletal: Circulation, motion, and sensation intact. 23:30 Reassessment: Patient appears in no apparent distress at this time. No changes from lp1 previously documented assessment. Family at bedside. 02/20 00:30 Reassessment: Patient appears in no apparent distress at this time. No changes from lp1 previously documented assessment. Patient and/or family updated on plan of care and expected duration. Pain level reassessed. 01:49 Reassessment: Patient is alert, oriented x 3, equal unlabored respirations, skin lp1 warm/dry/pink. Patient states symptoms have improved. Vital Signs: 02/19 21:56 BP 156 / 59; Pulse 78; Resp 16; Temp 101.1(O); Pulse Ox 93% on R/A; Weight 77.11 kg; la1 Height 5 ft. 6 in. (167.64 cm); 23:00 BP 162 / 63; Pulse 74; Resp 22; Pulse Ox 96% on R/A; lp1 23:30 BP 168 / 54; Pulse 71; Resp 22; Pulse Ox 97% on R/A; lp1 02/20 00:19 Temp 98.4(O); oe 00:22 BP 157 / 54; Pulse 84; Resp 22; Pulse Ox 96% on R/A; lp1 01:00 BP 156 / 66; Pulse 72; Resp 20; Pulse Ox 98% on R/A; lp1 02/19 21:56 Body Mass Index 27.44 (77.11 kg, 167.64 cm) la1 ED Course: 02/19 21:49 Patient arrived in ED. am2 21:49 Zack Gross MD is Private Physician. am2 21:55 Triage completed. la1 21:56 Arm band placed on right wrist. la1 21:58 Ramesh Ma PA is PHCP. jr8 21:58 Jennifer Pepper MD is Attending Physician. jr8 22:10 Michelle Oliveira RN is Primary Nurse. lp1 22:45 Inserted saline lock: 20 gauge in right antecubital area, using aseptic technique. lp1 Blood collected. 23:02 Patient has correct armband on for positive identification. Placed in gown. Bed in low lp1 position. monitoring manager on. Pulse ox on. NIBP on. 23:[address] via stretcher. lp1 02/20 00:06 CT Abd/Pelvis - W/Contrast In Process Unspecified. EDMS 00:20 Straight cath inserted, using sterile technique, Patient tolerated well. oe 00:45 Zack Gross MD is Hospitalizing Provider. jr8 01:42 No provider procedures requiring assistance completed. Patient admitted, IV remains in lp1 place. Administered Medications: 02/19 23:20 Drug: NS 0.9% 1000 ml Route: IV; Rate: 1000 ml; Site: right antecubital; lp1 02/20 00:59 Follow up: IV Status: Completed infusion bp 02/19 23:20 Drug: Tylenol 1000 mg Route: PO; lp1 02/20 00:59 Follow up: Response: No adverse reaction bp 00:47 Drug: Rocephin 2 grams Route: IV; Rate: calculated rate; Site: right antecubital; bp 00:55 Follow up: IV Status: Completed infusion bp 00:59 Drug: NS 0.9% (30 ml/kg) 30 ml/kg Route: IV; Rate: bolus; Site: right antecubital; bp 01:45 Follow up: IV Status: Infusion continued upon admission lp1 01:30 Not Given (Patient Refused): Zofran 4 mg IVP once; over 2 minutes lp1 Outcome: 00:45 Decision to Hospitalize by Provider. jr8 01:43 Condition: stable lp1 01:43 Instructed on the need for admit. 01:44 Admitted to Tele accompanied by tech, via wheelchair, room 425, with chart, Report lp1 called to MICKEY Foster 01:51 Patient left the ED. lp1 Signatures: Dispatcher [employer] EDMS Michelle Oliveira, RN RN lp1 Ramesh Ma PA PA jr8 Jose Burk RN RN la1 Ady Munoz Amanda am2 Jamar Cornejo RN RN bp Corrections: (The following items were deleted from the chart) 00:14 00:11 Patient tolerated well. oe oe
--- NOTE | 2018-02-20 00:46 | EDPHYS ---
Physician Documentation [facility] Name: Alvaro Rivers Age: 87 yrs Sex: Male : 1930 Arrival Date: 02/19/2018 Time: 21:49 Bed 3 Private MD: Zack Gross R ED Physician Jennifer Pepper HPI: 02/20 00:45 This 87 yrs old Male presents to ER via Wheelchair with complaints of Flank jr8 Pain, Vomiting, Pain With Urination. 00:45 The patient complains of pain in the left flank and right flank. The pain does not jr8 radiate. Onset: The symptoms/episode began/occurred acutely, today. Modifying factors: The symptoms are alleviated by nothing. the symptoms are aggravated by nothing. Associated signs and symptoms: Pertinent positives: dysuria. Severity of pain: At its worst the pain was moderate in the emergency department the pain is unchanged. The patient has not experienced similar symptoms in the past. The patient has not recently seen a physician. Historical: - Allergies: 02/19 21:55 No Known Allergies; la1 - Home Meds: 23:34 Plavix 75 mg Oral tab 1 tab once daily [Active]; lisinopril 20 mg Oral tab 1 tab once lp1 daily [Active]; metoprolol tartrate 50 mg Oral tab 1 tab 2 times per day [Active]; pravastatin 40 mg oral tab nightly [Active]; - PMHx: 21:55 Hypertension; la1 - Immunization history:: Adult Immunizations up to date. - Social history:: Smoking status: Patient/guardian denies using tobacco. ROS: 02/20 00:45 Eyes: Negative for injury, pain, redness, and discharge, ENT: Negative for injury, jr8 pain, and discharge, Neck: Negative for injury, pain, and swelling, Cardiovascular: Negative for chest pain, palpitations, and edema, Respiratory: Negative for shortness of breath, cough, wheezing, and pleuritic chest pain, Abdomen/GI: Negative for abdominal pain, nausea, vomiting, diarrhea, and constipation, MS/Extremity: Negative for injury and deformity, Skin: Negative for injury, rash, and discoloration, Neuro: Negative for headache, weakness, numbness, tingling, and seizure. Back: Positive for flank pain, bilaterally. : Positive for urinary symptoms, burning with urination. Exam: 00:45 Eyes: Pupils equal round and reactive to light, extra-ocular motions intact. Lids and jr8 lashes normal. Conjunctiva and sclera are non-icteric and not injected. Cornea within normal limits. Periorbital areas with no swelling, redness, or edema. ENT: Nares patent. No nasal discharge, no septal abnormalities noted. Tympanic membranes are normal and external auditory canals are clear. Oropharynx with no redness, swelling, or masses, exudates, or evidence of obstruction, uvula midline. Mucous membranes moist. Neck: Trachea midline, no thyromegaly or masses palpated, and no cervical lymphadenopathy. Supple, full range of motion without nuchal rigidity, or vertebral point tenderness. No Meningismus. Cardiovascular: Regular rate and rhythm with a normal S1 and S2. No gallops, murmurs, or rubs. Normal PMI, no JVD. No pulse deficits. Respiratory: Lungs have equal breath sounds bilaterally, clear to auscultation and percussion. No rales, rhonchi or wheezes noted. No increased work of breathing, no retractions or nasal flaring. Abdomen/GI: Soft, non-tender, with normal bowel sounds. No distension or tympany. No guarding or rebound. No evidence of tenderness throughout. Back: No spinal tenderness. No costovertebral tenderness. Full range of motion. Skin: Warm, dry with normal turgor. Normal color with no rashes, no lesions, and no evidence of cellulitis. MS/ Extremity: Pulses equal, no cyanosis. Neurovascular intact. Full, normal range of motion. Neuro: Awake and alert, GCS 15, oriented to person, place, time, and situation. Cranial nerves II-XII grossly intact. Motor strength 5/5 in all extremities. Sensory grossly intact. Cerebellar exam normal. Normal gait. Vital Signs: 02/19 21:56 BP 156 / 59; Pulse 78; Resp 16; Temp 101.1(O); Pulse Ox 93% on R/A; Weight 77.11 kg; la1 Height 5 ft. 6 in. (167.64 cm); 23:00 BP 162 / 63; Pulse 74; Resp 22; Pulse Ox 96% on R/A; lp1 23:30 BP 168 / 54; Pulse 71; Resp 22; Pulse Ox 97% on R/A; lp1 04/14 00:19 Temp 98.4(O); oe 00:22 BP 157 / 54; Pulse 84; Resp 22; Pulse Ox 96% on R/A; lp1 01:00 BP 156 / 66; Pulse 72; Resp 20; Pulse Ox 98% on R/A; lp1 02/19 21:56 Body Mass Index 27.44 (77.11 kg, 167.64 cm) la1 MDM: 02/19 21:58 Patient medically screened. [facility] 02/20 00:44 Data reviewed: vital signs, nurses notes, lab test result(s), radiologic studies, CT [facility] scan, and as a result, I will admit patient. Data interpreted: Pulse oximetry: on room air is 96 %. Interpretation: normal. Counseling: I had a detailed discussion with the patient and/or guardian regarding: the historical points, exam findings, and any diagnostic results supporting the discharge/admit diagnosis, lab results, radiology results, the need for further work-up and treatment in the hospital. Response to treatment: the patient's symptoms have mildly improved after treatment. 02/19 22:44 Order name: Basic Metabolic Panel; Complete Time: 23:31 [facility] 02/19 22:44 Order name: CBC with Diff; Complete Time: 23:31 [facility] 02/19 22:44 Order name: Creatinine for Radiology; Complete Time: 23:31 8 02/19 22:44 Order name: Hepatic Function; Complete Time: 23:31 8 02/19 22:44 Order name: Lipase; Complete Time: 23:31 [facility] 02/19 22:44 Order name: Urine Microscopic Only [facility] 02/19 22:44 Order name: Blood Culture Adult (2) [facility] 02/19 23:25 Order name: Urine Dipstick--Ancillary (enter results); Complete Time: 00:09 rg2 02/20 00:06 Order name: Urine Culture [facility] 02/20 00:10 Order name: Lactate; Complete Time: 01:23 jr8 02/20 01:23 Order name: Basic Metabolic Panel [facility] 02/20 01:23 Order name: Basic Metabolic Panel [facility] 02/20 01:23 Order name: CBC with Automated Diff [facility] 02/20 01:23 Order name: CBC with Automated Diff [facility] 02/19 22:44 Order name: IV Saline Lock; Complete Time: 23:01 [facility] 02/19 22:44 Order name: Labs collected and sent; Complete Time: 23:01 [facility] 02/19 22:44 Order name: Urine Dipstick-Ancillary (obtain specimen); Complete Time: 23:28 [facility] 02/19 23:32 Order name: CT Abd/Pelvis - W/Contrast [facility] 02/20 01:23 Order name: Regular EDMS Administered Medications: 02/19 23:20 Drug: NS 0.9% 1000 ml Route: IV; Rate: 1000 ml; Site: right antecubital; lp1 02/20 00:59 Follow up: IV Status: Completed infusion bp 02/19 23:20 Drug: Tylenol 1000 mg Route: PO; lp1 02/20 00:59 Follow up: Response: No adverse reaction bp 00:47 Drug: Rocephin 2 grams Route: IV; Rate: calculated rate; Site: right antecubital; bp 00:55 Follow up: IV Status: Completed infusion bp 00:59 Drug: NS 0.9% (30 ml/kg) 30 ml/kg Route: IV; Rate: bolus; Site: right antecubital; bp 01:45 Follow up: IV Status: Infusion continued upon admission lp1 01:30 Not Given (Patient Refused): Zofran 4 mg IVP once; over 2 minutes lp1 Disposition: 05:41 Co-signature as Attending Physician, Jennifer Pepper MD. ma2 Disposition: 02/20/18 00:45 Hospitalization ordered by Zack Gross for Inpatient Admission. Preliminary diagnosis is Urosepsis . - Bed requested for Telemetry/MedSurg (Inpatient). - Status is Inpatient Admission. lp1 - Condition is Stable. - Problem is new. - Symptoms have improved. UTI on Admission? Yes Signatures: Dispatcher [employer] [facility] Michelle Oliveira RN RN lp1 Ramesh Ma PA PA jr8 Jose Burk RN RN la1 Joanna Guillory RN RN Jamar Cornejo RN RN bp Alzahri, Mohammad, MD MD ma2
[2018-02-20] MEDS ORDERED: ONDANSETRON 4 MG/2 ML VIAL IV PRN (01:19)
[2018-02-20] MEDS: NA CHLORIDE 0.9% 1,000 ML IV SCH ×2 (02:49→15:20)
[2018-02-20 03:32] VITALS: BMI 27.8
--- NOTE | 2018-02-20 07:19 | RAD REPORT ---
EXAM DESCRIPTION: CT - Abdomen Pelvis W Contrast - 02/20/2018 6:48 am CLINICAL HISTORY: Abdominal pain, back pain, dysuria A preliminary written report was provided at the time of the study, and the report was reviewed prio r to final dictation. COMPARISON: CT January 31 TECHNIQUE: Biphasic, helical CT imaging of the abdomen and pelvis was performed following 100 ml non -ionic IV contrast. No oral contrast was given. All CT scans are performed using dose optimization technique as appropriate and may include automated exposure control or mA/KV adjustment according to patient size. FINDINGS: No suspicious findings in the lung bases. No pericardial thickening or effusion. The liver, spleen, and pancreas show no suspicious findings. Liver attenuation is borderline fatty in filtrated. No biliary tree dilatation. Gallbladder is contracted. Gallstones can be occult. An acute gallbladder process is doubtful. Symmetric renal function is seen with no hydronephrosis or suspicious renal mass. No pyelonephritis o r acute renal parenchymal process. No abnormal perinephric stranding. Urinary bladder is partially fi lled. Hankins of the bladder appear slightly thickened for this degree of distention and bladder hankins are more prominent than the January 31 study. Although this can still be artifact of partial filling, a ppearance raises concern for cystitis. Correlation is needed with UA findings. Prostate gland is not enlarged. Central lucency may indicate prior TURP procedure. Minimal prostatiti s cannot be excluded. No gastric dilatation or gastric wall thickening. There are several prominent small bowel loops inclu ding focal small bowel dilatation to 4.4 cm in the mid abdomen. No mass or focal abnormality at the t ransition point back to normal diameter. No appendicitis findings. No free air, free fluid or inflamm atory stranding. No mass or bulky lymphadenopathy. Fat extends into the left inguinal canal. No acti ve process at this site. No adrenal abnormality. Disc and bony degenerative changes are present. No acute finding or significant change since January 31 . IMPRESSION: Urinary bladder wall thickening seen suspicious for cystitis. Correlation is needed with UA findings. No pyelonephritis. Suspected TURP changes to the prostate. Minimal prostatitis is not excluded. There is a focal dilation of small bowel in the mid abdomen without edema of the wall, adjacent stran ding or focal mass. This may be remnant from the prior small bowel obstruction. Primary small bowel p rocess is doubtful.
[2018-02-20] MEDS ORDERED: PNEUMOCOCCAL VACCINE 0.5 ML IMVAC ONE (08:00)
[2018-02-20] MEDS: METOPROLOL TAR 50 MG TAB PO SCH ×2 (08:25→21:40)
[2018-02-20] MEDS: LISINOPRIL 20 MG TAB PO SCH (08:25)
[2018-02-20] MEDS: CEFTRIAXONE/SWI 1gm 1 GM/10 ML SYR IV SCH ×2 (08:26→21:39)
[2018-02-20] MEDS: CLOPIDOGREL 75 MG TABLET PO SCH (08:26)
[2018-02-20] MEDS: PANTOPRAZOLE 40MG TABLET PO SCH (08:26)
[2018-02-20] MEDS ORDERED: HOME MED 1 EA UNK (Pravastatin Sodium [Pravastatin Sodium] 40 MG) PO SCH (09:00)
[2018-02-20] MEDS ORDERED: CEFTRIAXONE 1 GM/NS 50 ML 1 GM/50 ML BAG IV SCH (12:00)
--- NOTE | 2018-02-20 19:24 | HP ---
Date of Admission: 02/20/2018 Chief Complaint: Back pain, fever, nausea, and vomiting with dysuria. History Of Present Illness: An 87-year-old male was brought to the emergency room with above-mention ed complaints. He had workup in the emergency room. He was found to have sepsis with urinary tract infection. The patient is admitted. There is no history of blood in the urine. No history of chest pain or shortness of breath. Past Medical History: Positive for hypertension, colonic malignancy, history of coronary artery dise ase in active, hyperlipidemia. Allergies: NONE. Review of Systems: No chest pain. Physical Examination: General: Revealed 87-year-old male, alert for his age. Vital Signs: Temperature 100. HEENT: No icterus. Neck: Supple. JVD negative. Chest: Clear. Heart: Regular. Abdomen: Soft, nontender. Extremities: No edema. Neurological: Negative. Laboratory Data: White count 19,500. Chem profile; sodium 128. CAT scan of the abdomen and pelvis, evidence of cystitis. Assessment: 1.Urinary tract infection. 2.Colonic cancer. 3.Recent bowel obstruction. 4.Hyperlipidemia. 5.Hypertension. Plan: The patient is started on IV Rocephin, which will be continued pending the culture reports. ASIA/JAYNA Voice ID: [id number]
[2018-02-20] MEDS: ACETAMINOPHEN 500 MG TAB PO PRN (19:32)
[2018-02-20] MEDS: BIMATOPROST OPHTH DROPS/2.5 ML BTL OPTH SCH (21:00)
[2018-02-20] MEDS: ATORVASTATIN 10 MG TAB PO SCH (21:39)
[2018-02-21] MEDS: NA CHLORIDE 0.9% 1,000 ML IV SCH ×2 (04:40→05:25)
[2018-02-21] MEDS: ACETAMINOPHEN 500 MG TAB PO PRN (05:54)
[2018-02-21 06:05] LABS: Potassium 3.8 mEq/L (3.6-5.0)
[2018-02-21 06:22] LABS: Absolute Lymphocytes (CBC) 1.2 K/uL (0.7-4.9); Absolute Monocytes 1.2 K/uL (0.1-1.3); Absolute Neutrophil 9.9 K/uL (1.8-8.0); Basophils % 0.4 % (0-1.3); Hematocrit 36.2 % (39.6-49.0); Lymphocytes % 9.4 % (15.3-44.8); MCH 30.1 pg (27.0-35.0); MCV 89.1 fL (80-100); MPV 8.7 fL (7.6-11.3); Monocytes % 9.6 % (3.3-12.3); RBC Red Blood Cell Count 4.06 M/uL (4.33-5.43)
[2018-02-21 09:48] VITALS: O2SAT 97
[2018-02-21] MEDS: CLOPIDOGREL 75 MG TABLET PO SCH (09:53)
[2018-02-21] MEDS: METOPROLOL TAR 50 MG TAB PO SCH ×2 (09:53→20:37)
[2018-02-21] MEDS: PANTOPRAZOLE 40MG TABLET PO SCH (09:53)
[2018-02-21] MEDS: LISINOPRIL 20 MG TAB PO SCH (09:53)
[2018-02-21] MEDS: CEFTRIAXONE/SWI 1gm 1 GM/10 ML SYR IV SCH ×2 (09:54→20:36)
[2018-02-21] MEDS: HYDRALAZINE HCL 20 MG/ML VIAL IV PRN (12:30)
[2018-02-21] MEDS: BIMATOPROST OPHTH DROPS/2.5 ML BTL OPTH SCH (20:36)
[2018-02-21] MEDS: ATORVASTATIN 10 MG TAB PO SCH (20:37)
[2018-02-22] MEDS: ACETAMINOPHEN 500 MG TAB PO PRN (00:53)
[2018-02-22] MEDS: HYDRALAZINE HCL 20 MG/ML VIAL IV PRN (00:53)
[2018-02-22 07:43] VITALS: BP 174/75; TEMP 97
[2018-02-22] MEDS: METOPROLOL TAR 50 MG TAB PO SCH (08:11)
[2018-02-22] MEDS: CLOPIDOGREL 75 MG TABLET PO SCH (08:12)
[2018-02-22] MEDS: PANTOPRAZOLE 40MG TABLET PO SCH (08:12)
[2018-02-22] MEDS: LISINOPRIL 20 MG TAB PO SCH (08:12)
[2018-02-22] MEDS: CEFTRIAXONE/SWI 1gm 1 GM/10 ML SYR IV SCH (08:13)
--- NOTE | 2018-03-08 00:48 | DS ---
Date of Discharge: 02/22/2018 Final Diagnoses: 1.Urinary tract infection. 2.Colon cancer. 3.Recent bowel obstruction. 4.Hyperlipidemia. 5.Hypertension. Hospital Course: This patient was brought to the emergency room with back pain, fever, dysuria. The patient was found to have evidence of urinary tract infection with white count 19,500, as well as so dium of 128. The patient is admitted after admission. The patient received Rocephin. The patient s howed improvement over the next few days with decreased pain as well as dysuria. The patient's urine culture showed E. coli sensitive to multiple antibiotic. As he was ambulatory and afebrile, he was discharged home on oral antibiotic to have followup in the office as well as follow up with the surge on for his colon surgery. Laboratory Data: Please refer to the chart. ADRIANA Voice ID: [id number] Report ID: [id number]
== END 2018-02-22 10:32 | disposition home or self-care (01) | DRG 690 ==
LOC: ER 21:45 → 4TH 02-20 01:18
PROVIDERS: ADMIT Internal Medicine; ATTEND Internal Medicine
DX: N39.0 Urinary tract infection, site not specified (principal); C18.9 Malignant neoplasm of colon, unspecified; B96.20 Unspecified Escherichia coli [E. coli] as the cause of diseases classified elsewhere; E78.5 Hyperlipidemia, unspecified; I25.10 Atherosclerotic heart disease of native coronary artery without angina pectoris; I10 Essential (primary) hypertension
CPT/HCPCS: 36415; 51702; 74177; 80048; 80076; 81003; 81015; 83605; 83690; 85025; 87040; 87077; 87086; 87088; 87186; 96361; 96365; 96375; 99285; J0360; J0696; J7030; Q9967

== ENCOUNTER 2018-09-26 21:20 | Observation (INO) | payer OTHER ==
--- OUTSIDE RECORDS SUMMARY | 2018-09-26 21:22 | XMS REPORT | Clinical Summary ---
:1930 Author Organization [facility] Address [address] [place] [address] Care Team Providers Name Role Phone Zack Johnson MD Primary Care Provider Allergies No Known Allergies Medications Medication Sig Dispensed Refills Start Date End Date Status lisinopril Take 20 mg by 0 Active (PRINIVIL,ZESTRIL) 20 mouth daily. mg tablet clopidogrel (PLAVIX) Take 75 mg by 0 Active 75 mg tablet mouth daily. pravastatin Take 40 mg by 0 Active (PRAVACHOL) 40 MG mouth daily. tablet pantoprazole Take 40 mg by 0 Active (PROTONIX) 40 MG EC mouth daily. tablet metoprolol tartrate Take 50 mg by 0 Active (LOPRESSOR) 50 mg mouth 2 (two) tablet times a day. bimatoprost (LUMIGAN) 1 drop as 0 Active 0.01 % ophthalmic needed. drops ciprofloxacin (CIPRO) Take 500 mg by 0 02/22/2018 Active 500 MG tablet mouth 2 (two) times a day. SUPREP BOWEL PREP KIT Take 2 Bottles 354 mL 0 02/22/2018 02/22/2018 17.5-3.13-1.6 gram (354 mL total) recon soln by mouth once for 1 dose. Take as directed by physician traMADol (ULTRAM) 50 Take 1 tablet 30 tablet 0 03/05/2018 03/10/2018 mg tablet (50 mg total) by mouth every 6 (six) hours as needed for moderate pain for up to 5 days. Active Problems Problem Noted Date Acute cystitis without hematuria 03/02/2018 Moderate protein-calorie malnutrition 03/02/2018 Rectal mass 03/02/2018 Encounters Date Type Specialty Care Team Description 03/17/2018 Office Visit General Surgery Moise Gomez Rectal cancer MD Enio (Primary Dx) 03/02/2018 Surgery General Surgery Moise Gomez ROBOTIC ASSISTED MD Enio LAPAROSCOPIC LOW ANTERIOR COLON RESECTION WITH END COLOSTOMY 03/02/2018 Anesthesia Event General Surgery Vu GantHIEN 03/02/2018 - Hospital Encounter General Surgery Moise Gomez Rectal mass 03/05/2018 MD Enio 02/22/2018 Orders Only General Surgery Moise Gomez MD 02/16/2018 Pre-Admit Testing Pre-Admission Moise Gomez Preop testing Appointment Testing MD Enio (Primary Dx) 02/16/2018 Office Visit General Surgery Moise Gomez Rectal mass (Primary MD Enio Dx) Hayde Henson NP-C 02/16/2018 Orders Only General Surgery Moise Gomez MD 11/26/2017 Office Visit General Surgery Karel Gomezic Rectal mass (Primary Dx) ; MD Enio Adenomatous polyp of colon, unspecified part of colon after 09/25/2017 Social History Tobacco Use Types Packs/Day Years Used Date Former Smoker 2 40 Quit: 03/02/2003 Smokeless Tobacco: Never Used Alcohol Use Drinks/Week oz/Week Comments Yes quit 15 years ago Sex Assigned at Date Recorded Not on file Job Start Date Occupation Industry Not on file Not on file Not on file Travel History Travel Start Travel End No recent travel history available. Last Filed Vital Signs Vital Sign Reading Time Taken Blood Pressure 140/72 03/17/2018 1:09 PM CDT Pulse 57 03/17/2018 1:09 PM CDT Temperature 36.9 C (98.5 F) 03/05/2018 3:32 PM CDT Respiratory Rate 17 03/05/2018 3:32 PM CDT Oxygen Saturation 96% 03/05/2018 3:32 PM CDT Inhaled Oxygen Concentration - - Weight 75.6 kg (166 lb 9.6 oz) 03/02/2018 9:00 AM CDT Height 165.1 cm (5' 5") 03/02/2018 9:00 AM CDT Body Mass Index 27.72 03/02/2018 9:00 AM CDT Plan of Treatment Health Maintenance Due Date Last Done Comments SHINGRIX VACCINE (1 of 2) 1981 ZOSTER VACCINE 1991 PNEUMOCOCCAL POLYSACCHARIDE VACCINE AGE 65 AND OVER 1996 PNEUMOCOCCAL-13 1996 INFLUENZA VACCINE 06/09/2018 Implants Implanted Type Area Board Hammer Operator Device Shelf Model / Identifier Expiration Serial / Date Lot Drain Wnd Chnl 19fr 4in Rnd Hbls Fl-Flut W/ 4in Trocar - [id number] Surgical N/A: N/A [employer] OF 2231 / Implanted: 03/02/2018 (Quantity not on file) Implants; JOEY & / Expanders; JOEY Extenders; Surgical Wires Procedures Procedure Name Priority Date/Time Associated Comments Diagnosis ZZESTIMATED GFR Routine 03/05/2018 4:06 Results for this AM CDT procedure are in the results section. PHOSPHORUS LEVEL Routine 03/05/2018 4:06 Results for this AM CDT procedure are in the results section. MAGNESIUM LEVEL Routine 03/05/2018 4:06 Results for this AM CDT procedure are in the results section. BASIC METABOLIC PANEL Routine 03/05/2018 4:06 Results for this AM CDT procedure are in the results section. HC COMPLETE BLD COUNT Routine 03/05/2018 4:06 Results for this W/AUTO DIFF AM CDT procedure are in the results section. HC COMPLETE BLD COUNT Routine 03/04/2018 4:20 Results for this W/AUTO DIFF AM CDT procedure are in the results section. ZZESTIMATED GFR Routine 03/04/2018 4:00 Results for this AM CDT procedure are in the results section. PHOSPHORUS LEVEL Routine 03/04/2018 4:00 Results for this AM CDT procedure are in the results section. MAGNESIUM LEVEL Routine 03/04/2018 4:00 Results for this AM CDT procedure are in the results section. BASIC METABOLIC PANEL Routine 03/04/2018 4:00 Results for this AM CDT procedure are in the results section. CONSULT TO OSTOMY Routine 03/03/2018 7:46 CARE NURSE AM CDT ZZESTIMATED GFR Routine 03/03/2018 3:35 Results for this AM CDT procedure are in the results section. IONIZED CALCIUM Routine 03/03/2018 3:35 Results for this AM CDT procedure are in the results section. PHOSPHORUS LEVEL Routine 03/03/2018 3:35 Results for this AM CDT procedure are in the results section. MAGNESIUM LEVEL Routine 03/03/2018 3:35 Results for this AM CDT procedure are in the results section. BASIC METABOLIC PANEL Routine 03/03/2018 3:35 Results for this AM CDT procedure are in the results section. HC COMPLETE BLD COUNT Routine 03/03/2018 3:35 Results for this W/AUTO DIFF AM CDT procedure are in the results section. URINALYSIS SCREEN AND STAT 03/03/2018 1:43 Results for this MICROSCOPY, WITH AM CDT procedure are in REFLEX TO CULTURE the results section. GRAM STAIN STAT 03/03/2018 1:43 Results for this AM CDT procedure are in the results section. URINE CULTURE STAT 03/03/2018 1:43 Results for this AM CDT procedure are in the results section. SURGICAL PATHOLOGY Routine 03/02/2018 2:48 Results for this REQUEST PM CDT procedure are in the results section. ARTERIAL LINE Routine 03/02/2018 12:08 PM CDT Procedure Note - Benjie Lyon CRNA - 03/02/2018 12:08 PM CDT Arterial line Performed by: BENJIE LYON Authorized by: ALESSANDRO SANDOVAL Patient Location: OR Start Time: 03/02/2018 10:44 AM End Time: 03/02/2018 10:45 AM Staff: Anesthesiologist: ALESSANDRO SANDOVAL Performed by: Anesthesiologist MSBT: all elements of maximal sterile barrier technique followed and hand hygiene performed Indications: Indications: multiple ABGs and hemodynamic monitoring Anesthesia: Anesthesia: General Procedure Details: Arterial Line placement: Placed post induction Line placement site: Radial Line placement side: Right Arterial line gauge: 20 G Number of attempts: 1 Ultrasound guidance used: No Post-procedure: Post-procedure: Line sutured and sterile dressing applied Post procedure circulation, sensation, movement: Normal Patient tolerance: Patient tolerated the procedure well with no immediate complications [place] AN ELECTIVE ENDOTRACHEAL AIRWAY Routine 03/02/2018 12:06 PM CDT Procedure Note - Benjie Lyon CRNA - 03/02/2018 12:06 PM CDT Airway Date/Time: 03/02/2018 10:42 AM Performed by: BENJIE LYON Authorized by: ALESSANDRO SANDOVAL Location: OR Urgency: Elective Difficult Airway: No Resident/COMMUNITY HEALTH PROMOTER/AA: BENJIE LYON Preoxygenated with 100% O2: Yes C-spine Precautions Maintained Throughout: Yes Mask Ventilation: Easy mask Final Airway Type: Endotracheal airway Final Endotracheal Airway: ETT Cuffed: Yes Technique Used: Direct laryngoscopy Insertion Site: Oral Blade Type: Mohamud Laryngoscope Blade/Videolaryngoscope Blade Size: 2 ETT Size (mm): 8.0 Cuff at minimum occlusion pressure: Yes Measured from: Lips ETT to Lips (cm): 22 Placement Verified by: CO2 detection, direct visualization and equal breath sounds Laryngoscopic view: Grade I - full view of glottis Rapid Sequence Induction (RSI): No Modified RSI: No RESECTION, COLON, LAPAROSCOPIC, 03/02/2018 11:00 AM CDT Rectal mass ROBOT-ASSISTED Special Needs XI, AIRSEAL URINALYSIS, AUTOMATED STAT 03/02/2018 10:13 AM Results for this WITH MICROSCOPY CDT procedure are in the results section. ZZESTIMATED GFR Routine 02/16/2018 12:39 PM Results for this CDT procedure are in the results section. TYPE AND SCREEN Routine 02/16/2018 12:39 PM Preop testing Results for this CDT procedure are in the results section. COMPREHENSIVE METABOLIC Routine 02/16/2018 12:39 PM Preop testing Results for this PANEL CDT procedure are in the results section. HC COMPLETE BLD COUNT Routine 02/16/2018 12:39 PM Preop testing Results for this W/AUTO DIFF CDT procedure are in the results section. after 09/25/2017 Results Estimated GFR (03/05/2018 4:06 AM CDT)Only the most recent of4 resultswithin the time period is included. GFR Non Af Amer 80 mL/min/1.73 m2 [facility] DEPARTMENT OF PATHOLOGY AND GENOMIC MEDICINE GFR Af Amer >90 mL/min/1.73 m2 [facility] DEPARTMENT OF Comment: PATHOLOGY AND GENOMIC Chronic kidney disease: <60 mL/min/1.73m2 MEDICINE Kidney failure: <15 mL/min/1.73m2 The estimated GFR is calculated from the IDMS-traceable Modification of Diet in Renal Disease Equation. The accuracy of the calculation is poor when the creatinine is normal. Calculated values >90 mL/min/1.73m2 are not reported. This equation has not been validated in children (<18 years), women, the elderly (>70 years), or ethnic groups other than Caucasians and Americans. Specimen Plasma specimen Performing Organization Address City/State/Zipcode Phone Number [facility] DEPARTMENT OF PATHOLOGY AND [address] [place] [address] [facility] CBC with platelet and differential (03/05/2018 4:06 AM CDT)Only the most recent of4 resultswithin the time period is included. WBC 9.43 4.50 - 11.00 k/uL [facility] DEPARTMENT OF PATHOLOGY AND GENOMIC MEDICINE RBC 3.14 (L) 4.40 - 6.00 m/uL [facility] DEPARTMENT OF PATHOLOGY AND GENOMIC MEDICINE HGB 9.3 (L) 14.0 - 18.0 g/dL [facility] DEPARTMENT OF PATHOLOGY AND GENOMIC MEDICINE HCT 28.1 (L) 41.0 - 51.0 % [facility] DEPARTMENT OF PATHOLOGY AND GENOMIC MEDICINE MCV 89.5 82.0 - 100.0 fL [facility] DEPARTMENT OF PATHOLOGY AND GENOMIC MEDICINE MCH 29.6 27.0 - 34.0 pg [facility] DEPARTMENT OF PATHOLOGY AND GENOMIC MEDICINE MCHC 33.1 31.0 - 37.0 g/dL [facility] DEPARTMENT OF PATHOLOGY AND GENOMIC MEDICINE RDW - SD 43.2 37.0 - 55.0 fL [facility] DEPARTMENT OF PATHOLOGY AND GENOMIC MEDICINE MPV 9.5 8.8 - 13.2 fL [facility] DEPARTMENT OF PATHOLOGY AND GENOMIC MEDICINE Platelet count 241 150 - 400 k/uL [facility] DEPARTMENT OF PATHOLOGY AND GENOMIC MEDICINE Nucleated RBC 0.00 /100 WBC [facility] DEPARTMENT OF PATHOLOGY AND GENOMIC MEDICINE Neutrophils 70.4 (H) 39.0 - 69.0 % [facility] DEPARTMENT OF PATHOLOGY AND GENOMIC MEDICINE Lymphocytes 15.3 (L) 25.0 - 45.0 % [facility] DEPARTMENT OF PATHOLOGY AND GENOMIC MEDICINE Monocytes 10.3 (H) 0.0 - 10.0 % [facility] DEPARTMENT OF PATHOLOGY AND GENOMIC MEDICINE Eosinophils 3.0 0.0 - 5.0 % [facility] DEPARTMENT OF PATHOLOGY AND GENOMIC MEDICINE Basophils 0.6 0.0 - 1.0 % [facility] DEPARTMENT OF PATHOLOGY AND GENOMIC MEDICINE Immature granulocytes 0.4Comment: 0.0 - 1.0 % [facility] DEPARTMENT OF "Immature PATHOLOGY AND GENOMIC granulocytes" MEDICINE (promyelocytes, myelocytes, metamyelocytes) Specimen Blood Performing Organization Address City/State/Zipcode Phone Number [facility] DEPARTMENT OF PATHOLOGY AND [address] [place] [id number] GENOMIC MEDICINE Phosphorus level (03/05/2018 4:06 AM CDT)Only the most recent of3 resultswithin the time period is included. Phosphorus 2.0 (L) 2.4 - 4.5 mg/dL [facility] DEPARTMENT OF PATHOLOGY AND GENOMIC MEDICINE Specimen Plasma specimen Performing Organization Address City/State/Zipcode Phone Number [facility] DEPARTMENT OF PATHOLOGY AND [address] [place] [phone] [place] [address] MEDICINE Magnesium level (03/05/2018 4:06 AM CDT)Only the most recent of3 resultswithin the time period is included. Magnesium 2.1 1.6 - 2.4 mg/dL [facility] DEPARTMENT OF PATHOLOGY AND GENOMIC MEDICINE Specimen Plasma specimen Performing Organization Address City/[facility] Phone Number [facility] DEPARTMENT OF PATHOLOGY AND [address] [place] [address] MEDICINE Basic metabolic panel (03/05/2018 4:06 AM CDT)Only the most recent of3 resultswithin the time period is included. Sodium 138 135 - 148 mEq/L [facility] DEPARTMENT OF PATHOLOGY AND GENOMIC MEDICINE Potassium 3.9 3.5 - 5.0 mEq/L [facility] DEPARTMENT OF PATHOLOGY AND GENOMIC MEDICINE Chloride 104 98 - 112 mEq/L [facility] DEPARTMENT OF PATHOLOGY AND GENOMIC MEDICINE CO2 26 24 - 31 mEq/L [facility] DEPARTMENT OF PATHOLOGY AND GENOMIC MEDICINE Anion gap 8 7 - 15 mEq/L [facility] DEPARTMENT OF PATHOLOGY Comment: AND GENOMIC [facility] Starting from February , anion gap calculation no longer incorporates potassium. Please note the change. BUN 8 8 - 23 mg/dL [facility] DEPARTMENT OF PATHOLOGY AND GENOMIC MEDICINE Creatinine 0.9 0.7 - 1.2 mg/dL [facility] DEPARTMENT OF PATHOLOGY AND GENOMIC MEDICINE Glucose 102 (H) 65 - 99 mg/dL [facility] DEPARTMENT OF PATHOLOGY AND GENOMIC MEDICINE Calcium 8.1 (L) 8.8 - 10.2 mg/dL [facility] DEPARTMENT OF PATHOLOGY AND GENOMIC MEDICINE Specimen Plasma specimen Performing Organization Address [facility] Phone Number [facility] DEPARTMENT OF PATHOLOGY AND [address] [place] [address] MEDICINE Ionized calcium (03/03/2018 3:35 AM CDT) pH 7.43 [facility] DEPARTMENT OF PATHOLOGY AND GENOMIC MEDICINE Ionized calcium 1.10 (L) 1.11 - 1.32 mmol/L [facility] DEPARTMENT OF PATHOLOGY AND GENOMIC MEDICINE Specimen Plasma specimen Performing Organization Address City/[facility]/Zipcode Phone Number [facility] DEPARTMENT OF PATHOLOGY AND [address] [place] [address] Urinalysis screen and microscopy, with reflex to culture (03/03/2018 1:43 AM CDT) Specimen site Catheterized [facility] DEPARTMENT OF PATHOLOGY AND GENOMIC MEDICINE Color, UA Yellow [facility] DEPARTMENT OF PATHOLOGY AND GENOMIC MEDICINE Appearance, UA Clear [facility] DEPARTMENT OF PATHOLOGY AND GENOMIC MEDICINE Specific gravity, UA 1.020 1.001 - 1.035 [facility] DEPARTMENT OF PATHOLOGY AND GENOMIC MEDICINE pH, UA 5.0 5.0 - 8.5 [facility] DEPARTMENT OF PATHOLOGY AND GENOMIC MEDICINE Protein, UA Negative Negative [facility] DEPARTMENT OF PATHOLOGY AND GENOMIC MEDICINE Glucose, UA Negative Negative [facility] DEPARTMENT OF PATHOLOGY AND GENOMIC MEDICINE Ketones, UA Negative Negative [facility] DEPARTMENT OF PATHOLOGY AND GENOMIC MEDICINE Bilirubin, UA Negative Negative [facility] DEPARTMENT OF PATHOLOGY AND GENOMIC MEDICINE Blood, UA Moderate (A) Negative [facility] DEPARTMENT OF PATHOLOGY AND GENOMIC MEDICINE Nitrite, UA Negative Negative [facility] DEPARTMENT OF PATHOLOGY AND GENOMIC MEDICINE Urobilinogen, UA <2.0 <2.0 [facility] DEPARTMENT OF PATHOLOGY AND GENOMIC MEDICINE Leukocyte esterase, UA Negative Negative [facility] DEPARTMENT OF PATHOLOGY AND GENOMIC MEDICINE WBC, UA 6 (H) 0 - 1 /HPF [facility] DEPARTMENT OF PATHOLOGY AND GENOMIC MEDICINE RBC, UA 30 (H) 0 - 5 /HPF [facility] DEPARTMENT OF PATHOLOGY AND GENOMIC MEDICINE Bacteria, UA Few None seen [facility] DEPARTMENT OF PATHOLOGY AND GENOMIC MEDICINE Yeast, UA None seen [facility] DEPARTMENT OF PATHOLOGY AND GENOMIC MEDICINE Yeast with pseudohyphae, UA None seen [facility] DEPARTMENT OF PATHOLOGY AND GENOMIC MEDICINE Hyaline casts, UA 5 /LPF [facility] DEPARTMENT OF PATHOLOGY AND GENOMIC MEDICINE Specimen Urine Performing Organization Address City/[facility] Phone Number [facility] DEPARTMENT OF PATHOLOGY AND [address] [place] [phone] [place] [address] MEDICINE Gram stain (03/03/2018 1:43 AM CDT) Gram stain result Few WBC's [facility] DEPARTMENT OF PATHOLOGY No organisms seen AND GENOMIC MEDICINE Comment: Specimen Information Specimen Source: Urine Specimen Site: Catheterized Specimen Urine - Catheterized Performing Organization Address City/[facility]/Zipcode Phone Number [facility] DEPARTMENT OF PATHOLOGY AND [address] [place] [phone] [facility] Urine culture (03/03/2018 1:43 AM CDT) Urine culture isolate No growth after 1 day. [facility] DEPARTMENT OF Comment: PATHOLOGY AND GENOMIC Specimen Information MEDICINE Specimen Source: Urine Specimen Site: Catheterized Specimen Urine - Catheterized Performing Organization Address City/[facility]/Zipcode Phone Number [facility] DEPARTMENT OF PATHOLOGY AND [address] [place] [address] MEDICINE Surgical pathology request (03/02/2018 2:48 PM CDT) [facility] DEPARTMENT OF PATHOLOGY AND GENOMIC MEDICINE Surgical pathology report See link below for PDF [facility] DEPARTMENT OF Lab Report PATHOLOGY AND GENOMIC MEDICINE Result status This is Final Report to [facility] DEPARTMENT OF [id number] PATHOLOGY AND GENOMIC MEDICINE Performing Organization Address City/[facility] Phone Number [facility] DEPARTMENT OF PATHOLOGY AND [address] [place] [address] GENOMIC MEDICINE Urinalysis, automated with microscopy (03/02/2018 10:13 AM CDT) Color, UA Straw [facility] DEPARTMENT OF PATHOLOGY AND GENOMIC MEDICINE Appearance, UA Clear [facility] DEPARTMENT OF PATHOLOGY AND GENOMIC MEDICINE Specific gravity, UA 1.011 1.001 - 1.035 [facility] DEPARTMENT OF PATHOLOGY AND GENOMIC MEDICINE pH, UA 5.0 5.0 - 8.5 [facility] DEPARTMENT OF PATHOLOGY AND GENOMIC MEDICINE Protein, UA Negative Negative [facility] DEPARTMENT OF PATHOLOGY AND GENOMIC MEDICINE Glucose, UA Negative Negative [facility] DEPARTMENT OF PATHOLOGY AND GENOMIC MEDICINE Ketones, UA Negative Negative [facility] DEPARTMENT OF PATHOLOGY AND GENOMIC MEDICINE Bilirubin, UA Negative Negative [facility] DEPARTMENT OF PATHOLOGY AND GENOMIC MEDICINE Blood, UA Negative Negative [facility] DEPARTMENT OF PATHOLOGY AND GENOMIC MEDICINE Nitrite, UA Negative Negative [facility] DEPARTMENT OF PATHOLOGY AND GENOMIC MEDICINE Urobilinogen, UA <2.0 <2.0 [facility] DEPARTMENT OF PATHOLOGY AND GENOMIC MEDICINE Leukocyte esterase, UA Negative Negative [facility] DEPARTMENT OF PATHOLOGY AND GENOMIC MEDICINE WBC, UA None seen 0 - 1 /HPF [facility] DEPARTMENT OF PATHOLOGY AND GENOMIC MEDICINE RBC, UA None seen 0 - 5 /HPF [facility] DEPARTMENT OF PATHOLOGY AND GENOMIC MEDICINE Bacteria, UA None seen None seen [facility] DEPARTMENT OF PATHOLOGY AND GENOMIC MEDICINE Hyaline casts, UA 5 /LPF [facility] DEPARTMENT OF PATHOLOGY AND GENOMIC MEDICINE Yeast, UA None seen [facility] DEPARTMENT OF PATHOLOGY AND GENOMIC MEDICINE Yeast with pseudohyphae, UA None seen [facility] DEPARTMENT OF PATHOLOGY AND GENOMIC MEDICINE Specimen Urine Performing Organization Address City/[facility]/Zipcode Phone Number [facility] DEPARTMENT OF PATHOLOGY AND [address] [place] [phone] GENOMIC MEDICINE Type and screen (02/16/2018 12:39 PM CDT) ABO grouping O [facility] DEPARTMENT OF PATHOLOGY AND GENOMIC MEDICINE Rh type POS [facility] DEPARTMENT OF PATHOLOGY AND GENOMIC MEDICINE Antibody screen (gel) NEG [facility] DEPARTMENT OF PATHOLOGY AND GENOMIC MEDICINE Specimen Blood Performing Organization Address City/[facility]/Zipcode Phone Number [facility] DEPARTMENT OF PATHOLOGY AND [address] [place] [phone] GENOMIC MEDICINE Comprehensive metabolic panel (02/16/2018 12:39 PM CDT) Sodium 139 135 - 148 mEq/L [facility] DEPARTMENT OF PATHOLOGY AND GENOMIC MEDICINE Potassium 5.1 (H) 3.5 - 5.0 mEq/L [facility] DEPARTMENT OF PATHOLOGY AND GENOMIC MEDICINE Chloride 99 98 - 112 mEq/L [facility] DEPARTMENT OF PATHOLOGY AND GENOMIC MEDICINE CO2 29 24 - 31 mEq/L [facility] DEPARTMENT OF PATHOLOGY AND GENOMIC MEDICINE Anion gap 11 7 - 15 mEq/L [facility] DEPARTMENT OF Comment: PATHOLOGY AND GENOMIC Starting from February , anion gap calculation MEDICINE no longer incorporates potassium. Please note the change. BUN 13 8 - 23 mg/dL [facility] DEPARTMENT OF PATHOLOGY AND GENOMIC MEDICINE Creatinine 1.2 0.7 - 1.2 mg/dL [facility] DEPARTMENT OF PATHOLOGY AND GENOMIC MEDICINE Glucose 101 (H) 65 - 99 mg/dL [facility] DEPARTMENT OF PATHOLOGY AND GENOMIC MEDICINE Calcium 9.2 8.8 - 10.2 mg/dL [facility] DEPARTMENT OF PATHOLOGY AND GENOMIC MEDICINE Protein 6.7 6.3 - 8.3 g/dL [facility] DEPARTMENT OF Comment: PATHOLOGY AND GENOMIC 4.6-7.0 g/dL MEDICINE 1 week 4.4-7.6 g/dL 7 months-1year5.1-7.3 g/dL 1-2 years5.6-7.5 g/dL >3 years6.0-8.0 g/dL 18-150 6.3-8.3 g/dL Albumin 3.4 (L) 3.5 - 5.0 g/dL [facility] DEPARTMENT OF PATHOLOGY AND GENOMIC MEDICINE A/G ratio 1.0 0.7 - 3.8 [facility] DEPARTMENT OF PATHOLOGY AND GENOMIC MEDICINE Alkaline phosphatase 69 40 - 129 U/L [facility] DEPARTMENT OF PATHOLOGY AND GENOMIC MEDICINE AST 24 10 - 50 U/L [facility] DEPARTMENT OF PATHOLOGY AND GENOMIC MEDICINE ALT 19 5 - 50 U/L [facility] DEPARTMENT OF PATHOLOGY AND GENOMIC MEDICINE Total bilirubin 0.3 0.0 - 1.2 mg/dL [facility] DEPARTMENT OF PATHOLOGY AND GENOMIC MEDICINE Specimen Plasma specimen Performing Organization Address City/State/Zipcode Phone Number [facility] DEPARTMENT OF PATHOLOGY AND [address] [place] [address] GENOMIC MEDICINE after 09/25/2017 Insurance Payer Benefit Plan / Group Subscriber ID Type Phone Address [facility] xxxxxxxxx O Advance Directives Patient has advance care planning documents on file. For more information, please contact:Zachery [id number] [place] [address]
[2018-09-26 22:24] LABS: Absolute Lymphocytes (CBC) 1.6 K/uL (0.7-4.9); Absolute Monocytes 0.7 K/uL (0.1-1.3); Absolute Neutrophil 5.5 K/uL (1.8-8.0); Basophils % 0.7 % (0-1.3); Eosinophils % 2.7 % (0-4.4); Lymphocytes % 19.6 % (15.3-44.8); MCH 30.4 pg (27.0-35.0); MCV 89.8 fL (80-100); MPV 7.9 fL (7.6-11.3); Monocytes % 8.5 % (3.3-12.3); RBC Red Blood Cell Count 4.23 M/uL (4.33-5.43)
[2018-09-26] MEDS ORDERED: MORPHINE 4 MG/ML SYR ONE (22:26)
[2018-09-26] MEDS ORDERED: ONDANSETRON 4 MG/2 ML VIAL ONE (22:26)
[2018-09-26] MEDS ORDERED: NA CHLORIDE 0.9% 1,000 ML ONE (22:31)
[2018-09-26 22:43] LABS: Protime INR 0.98
[2018-09-26 23:16] LABS: Albumin 3.4 g/dL (3.4-5.0); BUN Blood Urea Nitrogen 14 mg/dL (7-18); Bicarbonate 28 mmol/L (21-32); Bilirubin Direct 0.1 mg/dL (0-0.2); Bilirubin Total 0.3 mg/dL (0.2-1.0); Lipase 128 U/L (73-393); Magnesium 2.1 mg/dL (1.8-2.4); NT PRO-BNP 498 pg/mL (<450); Protein, Total 6.7 g/dL (6.4-8.2); Troponin (Emerg Dept Use Only) < 0.02 ng/mL (0.0-0.045)
[2018-09-26 23:21] LABS: Urine Blood TRACE (NEG); Urine Glucose NEGATIVE (NEG); Urine Protein NEGATIVE (NEG)
[2018-09-26 23:25] LABS: ALT/SGPT 15 U/L (12-78); AST/SGOT 18 U/L (15-37); Alkaline Phosphatase 85 U/L (45-117); Glucose Level 112 mg/dL (74-106); Potassium 3.9 mmol/L (3.5-5.1); Sodium Level 139 mmol/L (136-145)
--- NOTE | 2018-09-27 01:17 | ER ---
Nurse's Notes [facility] Name: Alvaro Rivers Age: 88 yrs Sex: Male : 1930 Arrival Date: 09/26/2018 Time: 21:23 Bed 24 Private MD: Zack Gross R Diagnosis: Dizziness and giddiness;Low back pain;Essential (primary) hypertension Presentation: 09/26 21:25 Presenting complaint: Patient states: sharp lower back pain and nausea for 2 days. la1 Transition of care: patient was not received from another setting of care. Onset of symptoms was September 26, 2018. Risk Assessment: Do you want to hurt yourself or someone else? Patient reports no desire to harm self or others. Initial Sepsis Screen: Does the patient meet any 2 criteria? No. Patient's initial sepsis screen is negative. Does the patient have a suspected source of infection? No. Patient's initial sepsis screen is negative. Care prior to arrival: None. 21:25 Method Of Arrival: Ambulatory la1 21:25 Acuity: VIRGILIO 3 la1 Historical: - Allergies: 21:25 No Known Allergies; la1 - Home Meds: 22:27 lisinopril 20 mg Oral tab 1 tab once daily [Active]; metoprolol tartrate 50 mg Oral tab mg2 1 tab 2 times per day [Active]; Plavix 75 mg Oral tab 1 tab once daily [Active]; pravastatin 40 mg Oral tab nightly [Active]; - PMHx: 21:25 Hypertension; la1 - PSHx: 21:25 colostomy; diverticulosis; la1 - Immunization history:: Adult Immunizations up to date. - Social history:: Smoking status: Patient/guardian denies using tobacco. - Ebola Screening: : No symptoms or risks identified at this time. - Family history:: not pertinent. Screenin:52 Abuse screen: Denies threats or abuse. Denies injuries from another. Nutritional mg2 screening: No deficits noted. Tuberculosis screening: No symptoms or risk factors identified. Fall Risk Secondary diagnosis (15 points) dizziness. Assessment: 22:02 General: Appears in no apparent distress. comfortable, Behavior is calm, cooperative. mg2 Pain: Complains of pain in lower back. Neuro: Level of Consciousness is awake, alert, obeys commands, Oriented to person, place, time, situation, Reports dizziness, since today. Cardiovascular: Capillary refill < 3 seconds Patient's skin is warm and dry. Vital Signs: 21:27 BP 190 / 78; Pulse 60; Resp 16; Temp 98.0; Pulse Ox 98% on R/A; Weight 74.39 kg; la1 21:54 BP 208 / 70; Pulse 60; Resp 18; Pulse Ox 100% on R/A; Pain 7/10; mg2 22:03 BP 210 / 83; Pulse 59; Resp 18; Pulse Ox 100% on R/A; Pain 5/10; mg2 23:34 BP 196 / 80; Pulse 60; Resp 18; Pulse Ox 96% on R/A; Pain 3/10; mg2 09/27 00:40 Pulse 70; Resp 18; Pulse Ox 98% on R/A; mg2 00:42 BP 203 / 85; Pulse 72; mg2 01:39 BP 184 / 117; Pulse 68; Resp 18; Pulse Ox 98% on R/A; Pain 2/10; mg2 02:28 BP 190 / 130; Pulse 85; Resp 18; Temp 98.2(O); Pulse Ox 100% on R/A; Pain 0/10; mg2 02:46 BP 208 / 82; Pulse 72; Resp 18; Pulse Ox 98% on R/A; Pain 0/10; mg2 02:47 BP 182 / 71; Pulse 86; Resp 18; Pulse Ox 97% on R/A; Pain 0/10; mg2 03:05 BP 188 / 75; Pulse 75; Resp 18; Pulse Ox 100% on R/A; Pain 0/10; mg2 03:11 BP 145 / 65; Pulse 70; Resp 18; Pulse Ox 100% on R/A; Pain 0/10; mg2 ED Course: 09/26 21:23 Patient arrived in ED. es 21:24 Zack Gross MD is Private Physician. es 21:26 Triage completed. la1 21:26 Arm band placed on left wrist. la1 21:39 Adarsh Hua, MICKEY is Primary Nurse. mg2 22:09 Darren Ayala MD is Attending Physician. jose 22:20 Radiology exam delayed due to lab results not completed at this time. (BUN/Creatinine). ka1 22:23 No provider procedures requiring assistance completed. Inserted saline lock: 20 gauge mg2 in right antecubital area, using aseptic technique. Blood collected. 23:01 Radiology exam delayed due to lab results not completed at this time. (BUN/Creatinine). ka1 23:14 Radiology exam delayed due to lab results not completed at this time. (BUN/Creatinine). kw1 23:17 XRAY Chest (1 view) In Process Unspecified. EDMS 23:[address] via stretcher. kw1 23:58 CT Aorta for Dissection In Process Unspecified. EDMS 09/27 00:01 CT completed. Patient tolerated procedure well. Patient moved back from CT. kw1 01:15 Zack Gross MD is Hospitalizing Provider. jose 02:04 Patient has correct armband on for positive identification. awake overnight monitor on. Pulse mg2 ox on. NIBP on. Door closed. Warm blanket given. 02:05 Repeat lab(s) drawn. by me, sent to lab. mg2 03:13 Patient admitted, IV remains in place. mg2 Administered Medications: 09/26 22:23 Drug: morphine 4 mg Route: IVP; Site: right antecubital; mg2 23:30 Follow up: Response: No adverse reaction; Pain is decreased mg2 22:23 Drug: Zofran 4 mg Route: IVP; Site: right antecubital; mg2 09/27 01:40 Follow up: Response: No adverse reaction mg2 09/26 22:32 Drug: NS 0.9% 1000 ml Route: IV; Rate: 125 ml/hr; Site: right antecubital; mg2 09/27 03:16 Follow up: Response: No adverse reaction; IV Status: Completed infusion mg2 01:40 Drug: Enalaprilat 1.25 mg Route: IV; Rate: per protocol; Site: right antecubital; mg2 02:00 Follow up: Response: No adverse reaction; Blood pressure is unchanged mg2 02:42 Drug: hydrALAZINE 5 mg Route: IV; Rate: per protocol; Site: right antecubital; mg2 03:08 Follow up: Response: No adverse reaction; IV Status: Completed infusion mg2 02:42 Drug: hydrALAZINE 10 mg Route: PO; mg2 03:08 Follow up: Response: No adverse reaction; Blood pressure is lowered mg2 02:44 Drug: hydrALAZINE 5 mg Route: IV; Rate: per protocol; Site: right antecubital; mg2 03:09 Follow up: Response: No adverse reaction; Blood pressure is lowered; IV Status: mg2 Completed infusion 03:08 Drug: hydrALAZINE 10 mg Route: IV; Rate: ml/hr; Site: right antecubital; mg2 03:09 Follow up: Response: No adverse reaction; Marked relief of symptoms; Blood pressure is mg2 lowered 03:10 Follow up: Response: No adverse reaction; Blood pressure is lowered; IV Status: mg2 Completed infusion Outcome: 01:16 Decision to Hospitalize by Provider. jose 03:13 Admitted to Tele accompanied by tech, via stretcher, room 405, with chart, Report mg2 called to MICKEY Davis 03:13 Condition: improved 03:13 Instructed on the need for admit, Demonstrated understanding of instructions. 03:14 Patient left the ED. mg2 Signatures: Dispatcher [employer] Darren Rodriguez MD MD cha Salyer, Jose Dorado RN RN la1 Stella Nunn Karlie ka1 Gardose, Michele, RN RN mg2 Corrections: (The following items were deleted from the chart) 09/26 21:58 21:27 BP 190 / 78; Pulse 16bpm; Resp 60bpm; Pulse Ox 98% RA; Temp 98.0F; 74.39 kg; la1 la1 09/27 03:12 03:10 BP 188 / 75; Pulse 75bpm; Resp 18bpm; Pulse Ox 100% RA; Pain 0/10; mg2 mg2
--- NOTE | 2018-09-27 01:17 | EDPHYS ---
Physician Documentation [facility] Name: Alvaro Rivers Age: 88 yrs Sex: Male : 1930 Arrival Date: 09/26/2018 Time: 21:23 Bed 24 Private MD: Zack Gross R ED Physician Darren Ayala HPI: 09/26 22:41 This 88 yrs old Male presents to ER via Ambulatory with complaints of jose Dizziness, Back Pain. 22:41 The patient presents with dizziness, generalized weakness. jose Historical: - Allergies: 21:25 No Known Allergies; la1 - Home Meds: 22:27 lisinopril 20 mg Oral tab 1 tab once daily [Active]; metoprolol tartrate 50 mg Oral tab mg2 1 tab 2 times per day [Active]; Plavix 75 mg Oral tab 1 tab once daily [Active]; pravastatin 40 mg Oral tab nightly [Active]; - PMHx: 21:25 Hypertension; la1 - PSHx: 21:25 colostomy; diverticulosis; la1 - Immunization history:: Adult Immunizations up to date. - Social history:: Smoking status: Patient/guardian denies using tobacco. - Ebola Screening: : No symptoms or risks identified at this time. - Family history:: not pertinent. ROS: 22:42 Constitutional: Negative for fever, chills, and weight loss, Eyes: Negative for injury, jose pain, redness, and discharge, ENT: Negative for injury, pain, and discharge, Neck: Negative for injury, pain, and swelling, Cardiovascular: Negative for chest pain, palpitations, and edema, Respiratory: Negative for shortness of breath, cough, wheezing, and pleuritic chest pain, : Negative for injury, bleeding, discharge, and swelling, MS/Extremity: Negative for injury and deformity, Skin: Negative for injury, rash, and discoloration, Neuro: Negative for headache, weakness, numbness, tingling, and seizure, Psych: Negative for depression, anxiety, suicide ideation, homicidal ideation, and hallucinations, Allergy/Immunology: Negative for hives, rash, and allergies, Endocrine: Negative for neck swelling, polydipsia, polyuria, polyphagia, and marked weight changes, Hematologic/Lymphatic: Negative for swollen nodes, abnormal bleeding, and unusual bruising. 22:42 Abdomen/GI: Positive for abdominal pain, abdominal distension. 22:42 Back: Positive for decreased range of motion, pain at rest. Exam: 22:42 Constitutional: This is a well developed, well nourished patient who is awake, alert, jose and in no acute distress. Head/Face: Normocephalic, atraumatic. Eyes: Pupils equal round and reactive to light, extra-ocular motions intact. Lids and lashes normal. Conjunctiva and sclera are non-icteric and not injected. Cornea within normal limits. Periorbital areas with no swelling, redness, or edema. ENT: Nares patent. No nasal discharge, no septal abnormalities noted. Tympanic membranes are normal and external auditory canals are clear. Oropharynx with no redness, swelling, or masses, exudates, or evidence of obstruction, uvula midline. Mucous membranes moist. Neck: Trachea midline, no thyromegaly or masses palpated, and no cervical lymphadenopathy. Supple, full range of motion without nuchal rigidity, or vertebral point tenderness. No Meningismus. Chest/axilla: Normal chest wall appearance and motion. Nontender with no deformity. No lesions are appreciated. Cardiovascular: Regular rate and rhythm with a normal S1 and S2. No gallops, murmurs, or rubs. Normal PMI, no JVD. No pulse deficits. Respiratory: Lungs have equal breath sounds bilaterally, clear to auscultation and percussion. No rales, rhonchi or wheezes noted. No increased work of breathing, no retractions or nasal flaring. Male : Normal genitalia with no discharge or lesions. Skin: Warm, dry with normal turgor. Normal color with no rashes, no lesions, and no evidence of cellulitis. MS/ Extremity: Pulses equal, no cyanosis. Neurovascular intact. Full, normal range of motion. Neuro: Awake and alert, GCS 15, oriented to person, place, time, and situation. Cranial nerves II-XII grossly intact. Motor strength 5/5 in all extremities. Sensory grossly intact. Cerebellar exam normal. Normal gait. Psych: Awake, alert, with orientation to person, place and time. Behavior, mood, and affect are within normal limits. 22:42 Abdomen/GI: Inspection: distension, Bowel sounds: normal, Palpation: mild abdominal tenderness, in all quadrants, Liver: no appreciated palpable abnormalities, Hernia: not appreciated. Vital Signs: 21:27 BP 190 / 78; Pulse 60; Resp 16; Temp 98.0; Pulse Ox 98% on R/A; Weight 74.39 kg; la1 21:54 BP 208 / 70; Pulse 60; Resp 18; Pulse Ox 100% on R/A; Pain 7/10; mg2 22:03 BP 210 / 83; Pulse 59; Resp 18; Pulse Ox 100% on R/A; Pain 5/10; mg2 23:34 BP 196 / 80; Pulse 60; Resp 18; Pulse Ox 96% on R/A; Pain 3/10; mg2 11 00:40 Pulse 70; Resp 18; Pulse Ox 98% on R/A; mg2 00:42 BP 203 / 85; Pulse 72; mg2 01:39 BP 184 / 117; Pulse 68; Resp 18; Pulse Ox 98% on R/A; Pain 2/10; mg2 02:28 BP 190 / 130; Pulse 85; Resp 18; Temp 98.2(O); Pulse Ox 100% on R/A; Pain 0/10; mg2 02:46 BP 208 / 82; Pulse 72; Resp 18; Pulse Ox 98% on R/A; Pain 0/10; mg2 02:47 BP 182 / 71; Pulse 86; Resp 18; Pulse Ox 97% on R/A; Pain 0/10; mg2 03:05 BP 188 / 75; Pulse 75; Resp 18; Pulse Ox 100% on R/A; Pain 0/10; mg2 03:11 BP 145 / 65; Pulse 70; Resp 18; Pulse Ox 100% on R/A; Pain 0/10; mg2 MDM: 09/26 22:09 Patient medically screened. [facility] 22:44 Data reviewed: vital signs, nurses notes, lab test result(s), EKG, radiologic studies, [facility] CT scan, plain films. 09/26 22:06 Order name: Basic Metabolic Panel; Complete Time: 00:31 mg2 09/26 22:06 Order name: CBC with Diff; Complete Time: 22:41 mg2 09/26 22:06 Order name: LFT's; Complete Time: 00:31 mg2 09/26 22:06 Order name: Magnesium; Complete Time: 00:31 mg2 09/26 22:06 Order name: NT PRO-BNP; Complete Time: 00:31 mg2 09/26 22:06 Order name: PT-INR; [place] [facility] [place] 22:06 Order name: Troponin (emerg Dept Use Only); Complete [place]: 00:[place] [facility] [place] 22:15 Order name: Lipase; Complete Time: 00:31 [facility] 09/26 22:41 Order name: Urine Culture [facility] 09/26 23:08 Order name: Urine Dipstick--Ancillary (enter results); Complete Time: 00:31 oe 09/27 01:27 Order name: Basic Metabolic Panel [facility] 09/27 01:27 Order name: Basic Metabolic Panel [facility] 09/27 01:27 Order name: CBC with Automated Diff [facility] 09/26 22:06 Order name: XRAY Chest (1 view) [facility] [place] 22:11 Order name: CT Aorta for Dissection [facility] 09/27 01:27 Order name: CBC with Automated Diff [facility] 09/27 01:27 Order name: Troponin I [facility] 09/27 01:27 Order name: Troponin I; Complete Time: 03:04 [facility] 09/27 01:27 Order name: Troponin I [facility] 09/27 01:27 Order name: Chest Single View [facility] 09/27 01:27 Order name: Chest Single View [facility] 09/26 22:06 Order name: EKG; Complete Time: 22:07 [facility] [place] 22:06 Order name: Cardiac monitoring; Complete Time: 22:07 [facility] [place] 22:06 Order name: EKG - Nurse/Tech; Complete Time: 22:07 [facility] [place] 22:06 Order name: IV Saline Lock; Complete Time: 22:14 [facility] [place] 22:06 Order name: Labs collected and sent; Complete Time: 22:14 [facility] [place] 22:06 Order name: O2 Per Protocol; Complete Time: 22:14 [facility] [place] 22:06 Order name: O2 Sat Monitoring; Complete Time: 22:14 [facility] [place] 22:11 Order name: Urine Dipstick-Ancillary (obtain specimen); Complete Time: 23:07 [facility] 09/27 01:27 Order name: Consistent Carb (ADA) [address] [facility] 09/27 01:27 Order name: EKG Electrocardiogram [facility] 09/27 01:27 Order name: EKG Electrocardiogram [facility] 09/27 01:27 Order name: EKG Electrocardiogram [facility] 09/27 01:27 Order name: EKG Electrocardiogram EDMS Administered Medications: 22:23 Drug: morphine 4 mg Route: IVP; Site: right antecubital; mg2 23:30 Follow up: Response: No adverse reaction; Pain is decreased mg2 22:23 Drug: Zofran 4 mg Route: IVP; Site: right antecubital; mg2 09/27 01:40 Follow up: Response: No adverse reaction mg2 09/26 22:32 Drug: NS 0.9% 1000 ml Route: IV; Rate: 125 ml/hr; Site: right antecubital; mg2 09/27 03:16 Follow up: Response: No adverse reaction; IV Status: Completed infusion mg2 01:40 Drug: Enalaprilat 1.25 mg Route: IV; Rate: per protocol; Site: right antecubital; mg2 02:00 Follow up: Response: No adverse reaction; Blood pressure is unchanged mg2 02:42 Drug: hydrALAZINE 5 mg Route: IV; Rate: per protocol; Site: right antecubital; mg2 03:08 Follow up: Response: No adverse reaction; IV Status: Completed infusion mg2 02:42 Drug: hydrALAZINE 10 mg Route: PO; mg2 03:08 Follow up: Response: No adverse reaction; Blood pressure is lowered mg2 02:44 Drug: hydrALAZINE 5 mg Route: IV; Rate: per protocol; Site: right antecubital; mg2 03:09 Follow up: Response: No adverse reaction; Blood pressure is lowered; IV Status: mg2 Completed infusion 03:08 Drug: hydrALAZINE 10 mg Route: IV; Rate: ml/hr; Site: right antecubital; mg2 03:09 Follow up: Response: No adverse reaction; Marked relief of symptoms; Blood pressure is mg2 lowered 03:10 Follow up: Response: No adverse reaction; Blood pressure is lowered; IV Status: mg2 Completed infusion Disposition: 09/27/18 01:16 Hospitalization ordered by Zack Gross for Observation. Preliminary diagnosis are Dizziness and giddiness, Low back pain, Essential (primary) hypertension. - Bed requested for Telemetry/MedSurg (observation). - Status is Observation. mg2 - Condition is Stable. - Problem is new. - Symptoms have improved. UTI on Admission? No Signatures: Dispatcher [employer] EDMS tSella Arevalo RN RN kl Anderson, Corey, MD MD cha Attema, Lee, RN RN la1 Adarsh Hua, RN RN mg2 Corrections: (The following items were deleted from the chart) 09/26 22:15 22:12 LIPASE+C.LAB.BRZ ordered. EDMS EDMS 09/27 02:18 01:16 Hospitalization Ordered by Zack Gross MD for Observation. Preliminary diagnosis kl is Dizziness and giddiness; Low back pain; Essential (primary) hypertension. Bed requested for Telemetry/MedSurg (observation). Status is Observation. Condition is Stable. Problem is new. Symptoms have improved. UTI on Admission? No. jose 03:14 02:18 09/27/2018 01:16 Hospitalization Ordered by Zack Gross MD for Observation. mg2 Preliminary diagnosis is Dizziness and giddiness; Low back pain; Essential (primary) hypertension. Bed requested for Telemetry/MedSurg (observation). Status is Observation. Condition is Stable. Problem is new. Symptoms have improved. UTI on Admission? No. kl
[2018-09-27] MEDS ORDERED: ACETAMINOPHEN 500 MG TAB PO PRN (01:24)
[2018-09-27] MEDS ORDERED: ONDANSETRON 4 MG/2 ML VIAL IV PRN (01:24)
[2018-09-27] MEDS ORDERED: MORPHINE 4 MG/ML SYR IV PRN (01:24)
[2018-09-27] MEDS ORDERED: ENALAPRILAT 1.25 MG/ML VIAL IV ONE (01:32)
[2018-09-27] MEDS ORDERED: HYDRALAZINE HCL 20 MG/ML VIAL ONE (02:39)
[2018-09-27 05:19] VITALS: BMI 26.2
--- NOTE | 2018-09-27 07:03 | EKG ---
Test Date: 2018-09-26 Test Time: 22:00:48 Public Policy Mediator: MEASUREMENT RESULTS: Intervals: Rate: 58 NH: 184 QRSD: 74 QT: 426 QTc: 418 [place]: P: 8 NH: 184 QRS: 14 T: 60 INTERPRETIVE STATEMENTS: Sinus bradycardia Otherwise normal ECG Compared to ECG 05/09/2014 07:16:21 Sinus rhythm no longer present Electronically Signed On 09-27-18 07:03:03 PTA by Marvel Hart
[2018-09-27] MEDS ORDERED: INFLUENZA VACCINE (for 3y+) 0.5 ML DOSE IMVAC ONE (08:00)
[2018-09-27] MEDS ORDERED: PNEUMOCOCCAL VACCINE 0.5 ML IMVAC ONE (08:00)
[2018-09-27] MEDS: AMLODIPINE 5 MG TAB PO SCH ×2 (09:00→10:43)
--- NOTE | 2018-09-27 09:52 | RAD REPORT ---
EXAM DESCRIPTION: CT - Angio Aorta For Dissection - 09/27/2018 2:59 am CLINICAL HISTORY: Chest pain radiating to the back. DISSECTION COMPARISON: Abdomen Pelvis W Contrast dated 04/20/2018; Abdomen Pelvis W Contrast dated 02/19/2018 TECHNIQUE: CT angiography of the aorta was performed with MIPs. All CT scans are performed using dose optimization technique as appropriate and may include automated exposure control or mA/KV adjustment according to patient size. FINDINGS: A left aortic arch is present with normal branching pattern of the great vessels.No acute aortic finding is seen such as aneurysm, penetrating ulcer or dissection. The celiac axis, SMA and r enal arteries are widely patent. 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 No evidence of pulmonary embolism. Scarring is present in both lung apices. No acute intrathoracic abnormality. Small arterial phase enhancing liver lesions are seen, the largest measuring 4 mm. No intrahepatic bi liary dilatation.The spleen, pancreas, adrenal glands and kidneys are within normal limits for arteri al phase imaging. No bowel obstruction, free fluid or abscess.A Delatorre's pouch is noted. 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 Postsurgical changes of the ascending colon and enterocolic junction seen.No pathologic enlar ged lymphadenopathy identified. Evidence of central compression deformity affecting L4, favored to be chronic. Prominent degenerative changes are present the lumbar spine. IMPRESSION: No acute aortic finding is demonstrated. Several small arterial phase enhancing lesions in the liver are incompletely characterized. Followup MR liver protocol may be useful for further characterization.
--- NOTE | 2018-09-27 09:54 | RAD REPORT ---
EXAM DESCRIPTION: RAD - Chest Single View - 09/26/2018 11:11 pm CLINICAL HISTORY: back pain Chest pain. COMPARISON: Chest Single View dated 01/31/2018; Chest Pa And Lat (2 Views) dated 07/22/2017; CHEST SIN GLE VIEW dated 05/08/2014 FINDINGS: Portable technique limits examination quality. The lungs are grossly clear. The heart is normal in size. No displaced fractures. IMPRESSION: No acute intrathoracic process suspected.
[2018-09-27] MEDS: ASPIRIN EC 81 MG TAB PO SCH (10:42)
[2018-09-27] MEDS: LISINOPRIL 20 MG TAB PO SCH (10:43)
[2018-09-27] MEDS: FAMOTIDINE 20 MG/2 ML VIAL IV SCH ×2 (10:43→21:13)
[2018-09-27] MEDS: HYDRALAZINE HCL 10 MG TABLET PO SCH ×2 (10:43→21:12)
[2018-09-27] MEDS: METOPROLOL TAR 50 MG TAB PO SCH ×2 (10:44→21:12)
--- NOTE | 2018-09-27 17:22 | RAD REPORT ---
EXAM DESCRIPTION: CT - Abdomen W Contrast CLINICAL HISTORY: Umbillicus abscess Abdominal pain COMPARISON: Abdomen Pelvis W Contrast dated 04/20/2018; Angio Aorta For Dissection dated [address] scans are performed using dose optimization technique as appropriate and may includ e automated exposure control or mA/KV adjustment according to patient size. FINDINGS: Emphysematous changes are present the lower lung forbes. Mild fatty liver is noted with vague difficult to discern small enhancing arterial phase liver lesion s as previously noted on recent CT angiogram study. No intrahepatic biliary dilatation seen. The sple en, pancreas, adrenal glands and kidneys are within normal limits. No free fluid, bowel obstruction or free air. A left-sided colostomy is noted. Mild thickening of the umbilical tissue is seen without abscess identified. No significant adenopathy in the abdomen. Central compression deformity affects the L4 vertebral body. IMPRESSION: Thickening of the periumbilical skin is seen which may indicate cellulitis. There is no evidence of a fluid collection to indicate abscess. Very difficult to visualize vague arterial phase enhancing liver lesions. Please reference CT angiogr am report 09/26/2018 for full details and recommendations.
[2018-09-27] MEDS ORDERED: METOPROLOL TAR 50 MG TAB PO SCH (21:00)
[2018-09-27] MEDS ORDERED: ATORVASTATIN 10 MG TAB PO SCH (21:00)
[2018-09-27 21:40] VITALS: O2SAT 95
[2018-09-28 04:20] LABS: Absolute Lymphocytes (CBC) 2.1 K/uL (0.7-4.9); Absolute Monocytes 0.7 K/uL (0.1-1.3); Absolute Neutrophil 5.6 K/uL (1.8-8.0); Basophils % 1.2 % (0-1.3); Eosinophils % 2.7 % (0-4.4); Hematocrit 41.1 % (39.6-49.0); Lymphocytes % 23.9 % (15.3-44.8); MCH 30.5 pg (27.0-35.0); MPV 8.1 fL (7.6-11.3); Monocytes % 8.5 % (3.3-12.3); RBC Red Blood Cell Count 4.62 M/uL (4.33-5.43)
[2018-09-28 04:26] LABS: Potassium 3.8 mmol/L (3.5-5.1)
--- NOTE | 2018-09-28 06:03 | HP ---
Date of Admission: 09/26/2018 Chief Complaint: Back pain, nausea. History Of Present Illness: This patient was brought to the emergency room because of nausea and leigh ann k pain. The patient had multiple studies including CT dissection study which was negative for any di ssecting aneurysm. The patient is admitted for observation. There is no history of chest pain or sh ortness of breath. His initial blood pressure was elevated in the emergency room. Past Medical History: Positive for hypertension and has been taking lisinopril. He also has history of hyperlipidemia. Past Surgical History: Positive for colostomy, diverticulosis. Family History: Noncontributory. Personal History: Nonsmoker. Allergies: NONE. Review of Systems: No chest pain, fever, chills, rigors. Physical Examination: General: Revealed an 88-year-old male, alert for his age. HEENT: Negative. Neck: No JVD. Chest: Few scattered wheezes. Heart: Regular. Mild bradycardia. Abdomen: Soft, nontender. Bowel sounds present. There is a colostomy functioning well. There is s mall area of open draining wound in the umbilical area. It is not clear whether it is connected inte rnally from examination of the abdomen. Extremities: No edema. Laboratory: White count normal. Chem profile: BNP 498. Troponin normal. Assessment: 1.Back pain and nausea. 2.Open wound abdominal wall. 3.Hypertension. 4.Hyperlipidemia. Plan: The patient does not have any acute abdomen. However, because of the open wound, CAT scan is ordered to see whether there is internal connection to previous diverticular disease. The patient is restarted on his regular medications. His blood pressure will be monitored. ASIA/JAYNA Voice ID: [id number]
--- NOTE | 2018-09-28 08:58 | RAD REPORT ---
EXAM DESCRIPTION: RAD - Chest Single View - 09/28/2018 6:26 am CLINICAL HISTORY: Chest Pain Chest pain. COMPARISON: Chest Single View dated 09/26/2018; Chest Single View dated 01/31/2018; Chest Pa And Lat (2 Views) dated 07/22/2017; CHEST SINGLE VIEW dated 05/08/2014 FINDINGS: Portable technique limits examination quality. The lungs are emphysematous but clear. The heart is normal in size. No displaced fractures. IMPRESSION: Mild COPD.
[2018-09-28] MEDS: HYDRALAZINE HCL 10 MG TABLET PO SCH (09:05)
[2018-09-28] MEDS: ASPIRIN EC 81 MG TAB PO SCH (09:06)
[2018-09-28] MEDS: METOPROLOL TAR 50 MG TAB PO SCH (09:06)
[2018-09-28] MEDS: FAMOTIDINE 20 MG/2 ML VIAL IV SCH (09:07)
[2018-09-28] MEDS: LISINOPRIL 20 MG TAB PO SCH (09:07)
[2018-09-28] MEDS: AMLODIPINE 5 MG TAB PO SCH (09:07)
--- NOTE | 2018-09-28 09:36 | EKG ---
Test Date: 2018-09-28 Test Time: 08:38:52 Hog Operator: WONG MEASUREMENT RESULTS: Intervals: Rate: 69 GA: 184 QRSD: 68 QT: 430 QTc: 460 [place]: P: 37 GA: 184 QRS: 24 T: 56 INTERPRETIVE STATEMENTS: Sinus rhythm with premature atrial complexes Otherwise normal ECG Compared to ECG 09/26/2018 22:00:48 Atrial premature complex(es) now present Sinus bradycardia no longer present Electronically Signed On 09-28-18 09:35:14 RED LEADER by Filemon Cox
[2018-09-28 10:38] VITALS: BP 175/81; TEMP 97.8
[2018-09-28] MEDS ORDERED: INFLUENZA VACCINE (for 3y+) 0.5 ML DOSE IMVAC ONE (11:00)
[2018-09-28] MEDS ORDERED: PNEUMOCOCCAL VACCINE 0.5 ML IMVAC ONE (11:00)
== END 2018-09-28 11:20 | disposition home or self-care (01) ==
LOC: ER 21:20 → ERHOLD 09-27 01:22 → 4TH 09-27 03:00
PROVIDERS: ADMIT Internal Medicine; ATTEND Internal Medicine
DX: M54.9 Dorsalgia, unspecified (principal); R11.0 Nausea; S31.109A Unspecified open wound of abdominal wall, unspecified quadrant without penetration into peritoneal cavity, initial encounter; I10 Essential (primary) hypertension; E78.5 Hyperlipidemia, unspecified; Z93.3 Colostomy status; Z23 Encounter for immunization
CPT/HCPCS: 36415 ×2; 71045 ×2; 71275; 74160; 74175; 80048 ×2; 80076; 81003; 83690; 83735; 83880; 84484 ×3; 85025 ×2; 85610; 87070; 87075; 87077 ×2; 87086; 87088; 87185; 87186 ×2; 87205; 90670; 93005 ×2; 96361; 96365; 96375; 99285; G0008; G0009; J0360; J2405; J7030; Q2035; Q9967 ×2; G0378

== ENCOUNTER 2018-10-15 21:02 | Observation (INO) | payer OTHER ==
[2018-10-15 23:02] LABS: Absolute Lymphocytes (CBC) 1.7 K/uL (0.7-4.9); Absolute Monocytes 1.2 K/uL (0.1-1.3); Basophils % 0.6 % (0-1.3); Hematocrit 35.4 % (39.6-49.0); Lymphocytes % 11.4 % (15.3-44.8); MCH 30.7 pg (27.0-35.0); MCV 90.3 fL (80-100); MPV 7.9 fL (7.6-11.3); RBC Red Blood Cell Count 3.92 M/uL (4.33-5.43)
[2018-10-15 23:12] LABS: Protime INR 1.08
[2018-10-15] MEDS ORDERED: CEFTRIAXONE/SWI 1gm 1 GM/10 ML SYR ONE (23:12)
[2018-10-15] MEDS ORDERED: NA CHLORIDE 0.9% 1,000 ML ONE (23:12)
[2018-10-15 23:25] LABS: ALT/SGPT 36 U/L (12-78); AST/SGOT 30 U/L (15-37); Albumin 2.8 g/dL (3.4-5.0); Alkaline Phosphatase 178 U/L (45-117); BUN Blood Urea Nitrogen 21 mg/dL (7-18); Bicarbonate 26 mmol/L (21-32); Bilirubin Direct 0.2 mg/dL (0-0.2); Bilirubin Total 0.5 mg/dL (0.2-1.0); CKMB Creatine Kinase MB 1.4 ng/mL (0.3-3.6); Creatine Phosphokinase 116 U/L (39-308); Glucose Level 115 mg/dL (74-106); Lipase 75 U/L (73-393); Potassium 4.1 mmol/L (3.5-5.1); Protein, Total 6.5 g/dL (6.4-8.2); Sodium Level 133 mmol/L (136-145); Troponin (Emerg Dept Use Only) < 0.02 ng/mL (0.0-0.045)
[2018-10-15] MEDS ORDERED: ACYCLOVIR NA 500 MG/VIAL IVPB ONE (23:27)
[2018-10-15] MEDS ORDERED: NA CHLORIDE 0.9% 100 ML IV ONE (23:31)
--- NOTE | 2018-10-16 01:06 | ER ---
Nurse's Notes [facility] Name: Alvaro Rivers Age: 88 yrs Sex: Male : 1930 Arrival Date: 10/15/2018 Time: 21:05 Bed 23 Private MD: Zack Gross R Diagnosis: Cellulitis of back [any part except buttock] Presentation: 10/15 21:15 Presenting complaint: Child states: "He started complaining of his back hurting, but he aj1 had shingles so we thought that's what it was, then one day he was complaining in the shower, so my looked at it and he has a big boil on his back" Reports low grade fever at home. Transition of care: patient was not received from another setting of care. Onset of symptoms was October 12, 2018. Risk Assessment: Do you want to hurt yourself or someone else? Patient reports no desire to harm self or others. Initial Sepsis Screen: Does the patient meet any 2 criteria? No. Patient's initial sepsis screen is negative. Does the patient have a suspected source of infection? Yes: Skin breakdown/wound. Care prior to arrival: None. 21:15 Method Of Arrival: Ambulatory aj1 21:15 Acuity: VIRGILIO 3 ak1 Triage Assessment: 21:24 General: Appears in no apparent distress. comfortable, Behavior is calm, cooperative, aj1 appropriate for age. Pain: Complains of pain in back Pain currently is 10 out of 10 on a pain scale. Neuro: Level of Consciousness is awake, alert, obeys commands. Cardiovascular: Patient's skin is warm and dry. Respiratory: Airway is patent Respiratory effort is even, unlabored, Respiratory pattern is regular, symmetrical. Historical: - Allergies: 21:24 No Known Allergies; aj1 - Home Meds: 21:24 lisinopril 20 mg Oral tab 1 tab once daily [Active]; metoprolol tartrate 50 mg Oral tab aj1 1 tab 2 times per day [Active]; Plavix 75 mg Oral tab 1 tab once daily [Active]; pravastatin 40 mg Oral tab nightly [Active]; gabapentin oral oral as needed [Active]; Tramadol Oral as needed [Active]; - PMHx: 21:24 Hypertension; shingles; Hyperlipidemia; Diverticulitis; cardiac stent; aj1 - PSHx: 21:24 Colostomy; aj1 - Immunization history:: Flu vaccine is up to date. - Social history:: Smoking status: Patient/guardian denies using tobacco. - Ebola Screening: : Patient denies travel to an Ebola-affected area in the 21 days before illness onset. Screenin:29 Abuse screen: Denies threats or abuse. Denies injuries from another. Nutritional ak1 screening: No deficits noted. Tuberculosis screening: No symptoms or risk factors identified. Fall Risk None identified. Assessment: 21:30 General: Appears in no apparent distress. Behavior is calm, cooperative. Pain: ak1 Complains of pain in lumbar area. Neuro: No deficits noted. Cardiovascular: No deficits noted. Respiratory: No deficits noted. GI: No signs and/or symptoms were reported involving the gastrointestinal system. : No signs and/or symptoms were reported regarding the genitourinary system. EENT: No signs and/or symptoms were reported regarding the EENT system. Derm: Abscess located on back is golf ball sized, has no drainage, is hot to touch, is red, is raised. Musculoskeletal: No deficits noted. 22:28 Reassessment: Patient appears in no apparent distress at this time. No changes from ak1 previously documented assessment. Patient is alert, oriented x 3, equal unlabored respirations, skin warm/dry/pink. 10/16 00:04 Reassessment: pt in CT. ak1 00:49 Reassessment: IV placed to left AC while in CT infiltrated. pt IV fluids placed to ak1 right AC IV. 01:12 Reassessment: Patient appears in no apparent distress at this time. Patient and/or ak1 family updated on plan of care and expected duration. Pain level reassessed. Patient is alert, oriented x 3, equal unlabored respirations, skin warm/dry/pink. pt and family informed of admission status. will continue to monitor. . Vital Signs: 10/15 21:24 BP 137 / 84; Pulse 74; Resp 18; Temp 99.2; Pulse Ox 97% on R/A; Weight 72.57 kg (R); aj1 Height 5 ft. 5 in. (165.10 cm) (R); Pain 10/10; 22:27 BP 132 / 59; Pulse 68; Resp 18; Temp 99.4; Pulse Ox 94% on R/A; ak1 23:13 BP 105 / 54; Pulse 61; Resp 18; Temp 99.4; Pulse Ox 94% on R/A; ak1 1208 00:25 BP 126 / 95; Pulse 81; Resp 16; Pulse Ox 98% on R/A; ak1 01:11 BP 138 / 71; Pulse 73; Resp 16; Temp 99.5(O); Pulse Ox 97% on R/A; ak1 12 21:24 Body Mass Index 26.63 (72.57 kg, 165.10 cm) aj1 ED Course: 10/15 21:05 Patient arrived in ED. mr 21:06 Zakc Gross MD is Private Physician. mr 21:22 Triage completed. aj1 21:24 Arm band placed on Patient placed in an exam room. aj1 21:29 Radha Pa, RN is Primary Nurse. ak1 21:29 Patient has correct armband on for positive identification. Placed in gown. Bed in low ak1 position. Call light in reach. Side rails up X 1. Adult w/ patient. 22:13 Sukhi Baker MD is Attending Physician. ps1 22:26 Inserted saline lock: 20 gauge in right antecubital area, using aseptic technique. ak1 Blood collected. 23:55 Radiology exam delayed due to Not able to flush IV. Patient moved to CT via stretcher. kw1 10/16 00:11 CT completed. Patient moved back from CT. kw1 00:18 CT Abd/Pelvis - W/Contrast In Process Unspecified. EDMS 01:03 Zack Gross MD is Hospitalizing Provider. ps1 01:12 No provider procedures requiring assistance completed. Patient admitted, IV remains in ak1 place. Administered Medications: 10/15 23:12 Drug: NS 0.9% 1000 ml Route: IV; Rate: 75 ml/hr; Site: right antecubital; ak1 10/16 01:10 Follow up: IV Status: Infusion continued upon admission ak1 10/15 23:13 Drug: Rocephin 1 grams Route: IV; Rate: 1 bolus; Site: right antecubital; ak1 23:27 Follow up: IV Status: Completed infusion ak1 23:27 Drug: Acyclovir 10 mg/kg {Note: 500mg dose per verbal order from provider. .} Route: ak1 IVPB; Site: right antecubital; 10/16 01:10 Follow up: IV Status: Completed infusion ak1 01:20 Drug: Clindamycin 900 mg Route: IVPB; Infused Over: 30 mins; Site: right antecubital; ak1 01:48 Follow up: IV Status: Completed infusion ak1 Outcome: 01:05 Decision to Hospitalize by Provider. ps1 01:12 Condition: stable ak1 01:12 Instructed on the need for admit. 01:43 Admitted to Med/surg accompanied by tech, via wheelchair, room 409, with chart, Report ak1 called to Balta 02:08 Patient left the ED. ak1 Signatures: Dispatcher [employer] EDMS Clover Araujo RN RN aj1 Zuri Kaur Amber, RN RN ak1 Sukhi Baker MD MD ps1 Stella Nunn kw1 Corrections: (The following items were deleted from the chart) 10/15 21:46 21:15 Acuity: VIRGILIO 4 aj1 ak1
--- NOTE | 2018-10-16 01:06 | EDPHYS ---
Physician Documentation [facility] Name: Alvaro Rivers Age: 88 yrs Sex: Male : 1930 Arrival Date: 10/15/2018 Time: 21:05 Bed 23 Private MD: Zack Gross R ED Physician Sukhi Baker HPI: 10/16 00:49 This 88 yrs old Male presents to ER via Ambulatory with complaints of Abscess. ps1 00:49 patient has large abscess and surrounding cellulitis that erupted over the last 3 days ps1 s/p shingles eruption. Patient was treated with acyclovir for 7 days. Painful and purulent localized over L1 spinous process. No fever. Has scabbed over shingles appearing rash. Historical: - Allergies: 10/15 21:24 No Known Allergies; aj1 - Home Meds: 21:24 lisinopril 20 mg Oral tab 1 tab once daily [Active]; metoprolol tartrate 50 mg Oral tab aj1 1 tab 2 times per day [Active]; Plavix 75 mg Oral tab 1 tab once daily [Active]; pravastatin 40 mg Oral tab nightly [Active]; gabapentin oral oral as needed [Active]; Tramadol Oral as needed [Active]; - PMHx: 21:24 Hypertension; shingles; Hyperlipidemia; Diverticulitis; cardiac stent; aj1 - PSHx: 21:24 Colostomy; aj1 - Immunization history:: Flu vaccine is up to date. - Social history:: Smoking status: Patient/guardian denies using tobacco. - Ebola Screening: : Patient denies travel to an Ebola-affected area in the 21 days before illness onset. ROS: 10/16 00:49 Constitutional: Negative for fever, chills, and weight loss, Eyes: Negative for injury, ps1 pain, redness, and discharge, Cardiovascular: Negative for chest pain, palpitations, and edema, Respiratory: Negative for shortness of breath, cough, wheezing, and pleuritic chest pain, Abdomen/GI: Negative for abdominal pain, nausea, vomiting, diarrhea, and constipation, Back: Negative for injury and pain, MS/Extremity: Negative for injury and deformity, Neuro: Negative for headache, weakness, numbness, tingling, and seizure, Psych: Negative for depression, anxiety, suicide ideation, homicidal ideation, and hallucinations. Skin: Positive for large cellulitic changes in lower thoracic and lumbar spine. Dermatomal rash to right side. . Exam: 00:59 Constitutional: This is a well developed, well nourished patient who is awake, alert, ps1 and in no acute distress. Head/Face: Normocephalic, atraumatic. Eyes: Pupils equal round and reactive to light, extra-ocular motions intact. Lids and lashes normal. Conjunctiva and sclera are non-icteric and not injected. Chest/axilla: Normal chest wall appearance and motion. Nontender with no deformity. No lesions are appreciated. Cardiovascular: Regular rate and rhythm. No gallops, murmurs, or rubs. Normal PMI, no JVD. No pulse deficits. Respiratory: Lungs have equal breath sounds bilaterally, clear to auscultation and percussion. No rales, rhonchi or wheezes noted. No increased work of breathing, no retractions or nasal flaring. Abdomen/GI: Soft, non-tender, with normal bowel sounds. No distension or tympany. No guarding or rebound. No evidence of tenderness throughout. MS/ Extremity: Pulses equal, no cyanosis. Neurovascular intact. Full, normal range of motion. 00:59 Skin: large cellulitic and purulent changes in lower thoracic and lumbar spine. Dermatomal rash to right side. . Vital Signs: 10/15 21:24 BP 137 / 84; Pulse 74; Resp 18; Temp 99.2; Pulse Ox 97% on R/A; Weight 72.57 kg (R); aj1 Height 5 ft. 5 in. (165.10 cm) (R); Pain 10/10; 22:27 BP 132 / 59; Pulse 68; Resp 18; Temp 99.4; Pulse Ox 94% on R/A; ak1 23:13 BP 105 / 54; Pulse 61; Resp 18; Temp 99.4; Pulse Ox 94% on R/A; ak1 10/16 00:25 BP 126 / 95; Pulse 81; Resp 16; Pulse Ox 98% on R/A; ak1 01:11 BP 138 / 71; Pulse 73; Resp 16; Temp 99.5(O); Pulse Ox 97% on R/A; ak1 10/15 21:24 Body Mass Index 26.63 (72.57 kg, 165.10 cm) aj1 MDM: 10/15 23:03 Patient medically screened. ps1 10/15 22:42 Order name: Basic Metabolic Panel; Complete Time: 23:43 ak1 10/15 22:42 Order name: Blood Culture Adult (2) ak1 10/15 22:42 Order name: CBC with Diff; Complete Time: 23:10 ak1 10/15 22:42 Order name: Ckmb; Complete Time: 23:43 ak1 10/15 22:42 Order name: CPK; Complete Time: 23:43 ak1 10/15 22:42 Order name: LFT's; Complete Time: 23:43 ak1 10/15 22:42 Order name: Lipase; Complete Time: 23:43 ak1 10/15 22:42 Order name: Procalcitonin; Complete Time: 23:43 ak1 10/15 22:42 Order name: Protime (+inr); Complete Time: 23:43 ak1 10/15 22:42 Order name: Ptt, Activated; Complete Time: 23:43 ak1 10/15 22:42 Order name: Troponin (emerg Dept Use Only); Complete Time: 23:43 ak1 10/16 01:15 Order name: Basic Metabolic Panel EDMS 10/16 01:15 Order name: Basic Metabolic Panel EDMS 10/16 01:15 Order name: CBC with Automated Diff EDMS 10/15 22:42 Order name: IV Saline Lock - Large Bore; Complete Time: 22:42 ak1 10/15 22:42 Order name: Labs collected and sent; Complete Time: 22:42 ak1 10/15 22:57 Order name: CT Abd/Pelvis - W/Contrast ak 10/16 01:15 Order name: CBC with Automated Diff EDMS Administered Medications: 23:12 Drug: NS 0.9% 1000 ml Route: IV; Rate: 75 ml/hr; Site: right antecubital; [facility] 10/16 01:10 Follow up: IV Status: Infusion continued upon admission [facility] 10/15 23:13 Drug: Rocephin 1 grams Route: IV; Rate: 1 bolus; Site: right antecubital; [facility] 23:27 Follow up: IV Status: Completed infusion [facility] 23:27 Drug: Acyclovir 10 mg/kg {Note: 500mg dose per verbal order from provider. .} Route: ak1 IVPB; Site: right antecubital; 10/16 01:10 Follow up: IV Status: Completed infusion ak1 01:20 Drug: Clindamycin 900 mg Route: IVPB; Infused Over: 30 mins; Site: right antecubital; ak1 01:48 Follow up: IV Status: Completed infusion ak1 Disposition: 10/16/18 01:05 Hospitalization ordered by Zack Gross for Observation. Preliminary diagnosis is Cellulitis of back [any part except buttock]. - Bed requested for Telemetry/MedSurg (observation). - Status is Observation. ak1 - Condition is Stable. - Problem is new. - Symptoms are unchanged. UTI on Admission? No Signatures: Dispatcher [employer] EDMS Clover Araujo RN RN aj1 Ginny Simmons RN RN aa1 Radha Pa RN RN ak1 Sukhi Baker MD MD ps1 Corrections: (The following items were deleted from the chart) 00:59 00:49 Skin: Positive for large cellulitic changes in lower thoracic and lumbar spine. ps1 Dermatomal rash to right side. , ps1 01:35 01:05 Hospitalization Ordered by Zack Gross MD for Observation. Preliminary diagnosis aa1 is Cellulitis of back [any part except buttock]. Bed requested for Telemetry/MedSurg (observation). Status is Observation. Condition is Stable. Problem is new. Symptoms are unchanged. UTI on Admission? No. ps1 02:08 01:35 10/16/2018 01:05 Hospitalization Ordered by Zack Gross MD for Observation. ak1 Preliminary diagnosis is Cellulitis of back [any part except buttock]. Bed requested for Telemetry/MedSurg (observation). Status is Observation. Condition is Stable. Problem is new. Symptoms are unchanged. UTI on Admission? No. aa1
[2018-10-16] MEDS ORDERED: ACETAMINOPHEN 500 MG TAB PO PRN (01:09)
[2018-10-16] MEDS ORDERED: CLINDAMYCIN 900MG/D5W 900 MG/50 ML IVPB IV ONE (01:18)
[2018-10-16 08:08] VITALS: BMI 26.6
[2018-10-16] MEDS ORDERED: ACYCLOVIR INJ 400 MG in NA CHLORIDE 0.9% 100 ML IVPB SCH (09:00)
[2018-10-16] MEDS ORDERED: CEFTRIAXONE/SWI 1gm 1 GM/10 ML SYR IV SCH (09:00)
--- NOTE | 2018-10-16 09:17 | RAD REPORT ---
EXAM DESCRIPTION: CT - Abdomen Pelvis W Contrast - 10/16/2018 6:36 am CLINICAL HISTORY: Abdominal pain/back pain. COMPARISON: September 2018 TECHNIQUE: Computed axial tomography of the abdomen pelvis was obtained. 100 cc Isovue-300 was admin istered intravenously. Oral contrast was not requested which limits evaluation of bowel. Preliminary report was generated by virtual radiologic and reviewed prior to dictation All CT scans are performed using dose optimization technique as appropriate and may include automated exposure control or mA/KV adjustment according to patient size. FINDINGS: The liver, spleen, pancreas, adrenal and kidneys appear unremarkable. 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 Diffuse edema is present the posterior subcutaneous tissues of the lower abdomen/pelvis. 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 Evaluation of the spinal canal is limited on unenhanced CT scan. MRI would be helpful for furth er evaluation
[2018-10-16] MEDS ORDERED: VANCOMYCIN 1.25 GM in NA CHLORIDE 0.9% 250 ML IVPB SCH (10:00)
[2018-10-16] MEDS: TRAMADOL HCL 50 MG TAB PO SCH ×2 (12:21→21:07)
[2018-10-16] MEDS: CLOPIDOGREL 75 MG TABLET PO SCH (12:21)
[2018-10-16] MEDS: METOPROLOL TAR 50 MG TAB PO SCH ×2 (12:21→21:07)
[2018-10-16] MEDS: LISINOPRIL 20 MG TAB PO SCH (12:22)
[2018-10-16] MEDS: GABAPENTIN 300 MG CAP PO SCH ×2 (12:22→21:07)
--- NOTE | 2018-10-16 16:36 | CON ---
Date of Consultation: 10/16/2018 Diagnosis: Cellulitis of the back. History Of Present Illness: This is the case of an 88-year-old patient, who apparently diagnosis of shingles over the right lateral dermatomes. He has been on acyclovir for 7 days, developed this redne ss in the back, diagnosed with a superimposed infection and a surgical consult was obtained for evalu ation. He denies any trauma, any dysuria, hematuria, hematochezia, melena. Allergies: NONE. Medications: Include acyclovir, lisinopril. Past Medical History: Hypertension, shingles, hyperlipidemia, diverticulitis, cardiac stents. Surgical History: History of colostomy. Review of Systems: Ten points otherwise unremarkable. Physical Examination: General: The patient is awake, alert. No distress. HEENT: Pupils anicteric. Chest: Bilateral breath sounds. Abdomen: Soft and depressible. Back, patient has in right dermatome area of already crusted ulcers t hat the medical service believes is related to shingles. On the midline patient has a superimposed i nfection might be that he has a sebaceous cyst in that area or just be breaking of the skin. I canno t feel any fluctuance at this moment, I feel some induration from the cellulitis. I cannot feel any abscess at this moment. Laboratory Data: Blood work shows a WBC count of 15.2 with hemoglobin of 12, INR 1.08, a creatinine is 1.50. CAT scan of the abdomen and pelvis interpreted by Dr. Paula as diffuse edema of the post erior subcutaneous tissue may indicate cellulitis. Assessment: This is an 88-year-old patient with history of shingles, apparently also superimposed in fection. The area of the back shows some erythema present near the areas of the ulcers but I do not feel any fluctuance at this time. We are going to continue then with the treatment by the primary do ctor. We are going to continue also with the antibiotics. In the next 24-48 hours, we noticed that s omething develop in that area that requires surgical intervention, we will be happy to do so. In the meantime, we can over the areas with sterile dressings. IRENE/JAYNA Voice ID: [id number] Report ID: [id number]
[2018-10-16] MEDS: ATORVASTATIN 10 MG TAB PO SCH (21:06)
[2018-10-16 22:41] LABS: Urine Appearance CLEAR; Urine Bilirubin NEGATIVE (NEG); Urine Blood NEGATIVE (NEG); Urine Color YELLOW; Urine Glucose NEGATIVE (NEG); Urine Protein TRACE (NEG)
[2018-10-16 22:54] LABS: Urine Microscopic Reflex ORDER UMIC
--- NOTE | 2018-10-16 23:03 | HP ---
Date of Admission: 10/15/2018 Chief Complaint: Pain and abscess, back. History Of Present Illness: An 88-year-old male who recently had severe herpes zoster, was brought t o the emergency room because of pain and abscess formation. The patient very likely had secondary in fection of the open area from herpes zoster. The patient is admitted. Past Medical History: The patient has, as mentioned earlier, recent history of herpes zoster, which was treated with Famvir and prednisone. The patient's other medical problems include history of hype rtension, hyperlipidemia, diverticulitis, coronary artery disease, coronary angioplasty, the patient has history of colostomy. Family History: Diabetes and hypertension present. Personal History: Nonsmoker. Allergies: NONE. Home Medicines: Metoprolol, lisinopril, Plavix, Pravachol, Neurontin, tramadol. Review of Systems: No chest pain. Physical Examination: General: Revealed 88-year-old male in moderate pain. HEENT: Negative. Neck: Supple. JVD negative. Chest: Clear. Heart: Regular. Abdomen: Soft. Back: There is a large area of abscess formation in the right lower lumbar area where initially the patient had herpes zoster. Assessment: 1.Abscess formation secondary to infected herpes zoster lesion. 2.Hypertension. 3.Coronary artery disease. 4.Hyperlipidemia. 5.Colostomy status. Plan: IV vancomycin. Surgical consultation to see whether it needs I and D done. Restart home [facility]. ADRIANA Voice ID: [id number]
[2018-10-16 23:47] LABS: Urine Bacteria <20 /HPF (NONE SEEN); Urine Culture Reflex Order NOT NEEDED; Urine RBC <5 /HPF (NONE SEEN)
[2018-10-17 06:04] LABS: Absolute Lymphocytes (CBC) 1.6 K/uL (0.7-4.9); Absolute Neutrophil 9.1 K/uL (1.8-8.0); Basophils % 0.5 % (0-1.3); Hematocrit 34.5 % (39.6-49.0); Lymphocytes % 13.3 % (15.3-44.8); MCH 30.6 pg (27.0-35.0); Monocytes % 8.1 % (3.3-12.3); RBC Red Blood Cell Count 3.88 M/uL (4.33-5.43)
[2018-10-17 06:06] LABS: BUN Blood Urea Nitrogen 11 mg/dL (7-18); Bicarbonate 25 mmol/L (21-32); Glucose Level 89 mg/dL (74-106); Sodium Level 135 mmol/L (136-145)
[2018-10-17] MEDS: ENOXAPARIN 30 MG/0.3 ML SQ SCH (09:05)
[2018-10-17] MEDS: LISINOPRIL 20 MG TAB PO SCH (09:06)
[2018-10-17] MEDS: CLOPIDOGREL 75 MG TABLET PO SCH (09:06)
[2018-10-17] MEDS: METOPROLOL TAR 50 MG TAB PO SCH ×2 (09:06→21:00)
[2018-10-17] MEDS: TRAMADOL HCL 50 MG TAB PO SCH ×2 (09:06→20:59)
[2018-10-17] MEDS: GABAPENTIN 300 MG CAP PO SCH ×2 (09:06→21:00)
[2018-10-17] MEDS: VANCOMYCIN 1.25 GM in NA CHLORIDE 0.9% 250 ML IVPB SCH (10:48)
--- NOTE | 2018-10-17 18:55 | PN ---
Patient's cellulitis looks better. He is afebrile. Surgical consult recommendations noted. The pat ient will be continued on the same antibiotic as he is responding. SAIA/JAYNA Voice ID: [id number] Report ID: [id number]
[2018-10-17] MEDS: ATORVASTATIN 10 MG TAB PO SCH (20:59)
[2018-10-18] MEDS: ENOXAPARIN 30 MG/0.3 ML SQ SCH (09:00)
[2018-10-18] MEDS: GABAPENTIN 300 MG CAP PO SCH ×3 (09:00→21:58)
[2018-10-18] MEDS: CLOPIDOGREL 75 MG TABLET PO SCH ×2 (09:00→15:25)
[2018-10-18] MEDS: LISINOPRIL 20 MG TAB PO SCH ×2 (09:00→15:24)
[2018-10-18] MEDS: TRAMADOL HCL 50 MG TAB PO SCH ×3 (09:00→21:58)
[2018-10-18] MEDS: METOPROLOL TAR 50 MG TAB PO SCH ×3 (09:00→21:58)
[2018-10-18] MEDS: VANCOMYCIN 1.25 GM in NA CHLORIDE 0.9% 250 ML IVPB SCH (10:00)
[2018-10-18] MEDS ORDERED: PROPOFOL 200 MG/20 ML VIAL IV ONE (12:29)
[2018-10-18] MEDS ORDERED: LIDOCAINE 1% MPF 2 ML AMPULE ONE (12:30)
[2018-10-18] MEDS ORDERED: FENTANYL CITR 100 MCG/2 ML ONE (12:30)
[2018-10-18] MEDS ORDERED: Ringers Lactate 1,000 ML IV ONE (12:41)
[2018-10-18] MEDS ORDERED: BUPIVACAINE 0.5% PF 10 ML VIAL ONE (12:47)
[2018-10-18] MEDS ORDERED: EPHEDRINE SULF 50 MG/10 ML SYR ONE (13:52)
--- NOTE | 2018-10-18 14:04 | P.BOP ---
Preoperative diagnosis: back necrotic ulcer/ abscess, hx of shingles Postoperative diagnosis: same Primary procedure: Incision and drainage of complex back abscess Estimated blood loss: <10cc Specimen: pus culture tissue debrided Findings: complex abscess Anesthesia: General Complications: None Drain(s): Other Transferred to: Recovery Room Condition: Good
[2018-10-18] MEDS ORDERED: KETOROLAC 30 MG/ML INJ ONE (14:07)
[2018-10-18] MEDS: MORPHINE 4 MG/ML SYR ONE ×2 (14:26→14:31)
[2018-10-18] MEDS: ATORVASTATIN 10 MG TAB PO SCH (21:58)
--- NOTE | 2018-10-18 23:30 | PN ---
Subjective: The patient's cellulitis looks better. He is able to roll onto his back now. He is afe brile. However, he formed the abscess where the origin of cellulitis was. The patient had to be priya en to surgery for I and D. ASIA/JAYNA Voice ID: [id number] Report ID: [id number]
--- NOTE | 2018-10-19 01:32 | OP ---
Date of Procedure: 10/18/2018 Surgeon: Noman Azul MD Preoperative Diagnoses: Back necrotic ulcer with abscess, history of multiple ulcers from shingles. Postoperative Diagnoses: Back necrotic ulcer with abscess, history of multiple ulcers from shingles. Procedure: Incision and drainage of complex back abscess about 7 x 4 cm with debridement of a necrot ic tissue. Ebl: Less than 10 cc. Findings: Complex abscess. The patient has necrotic ulcer present, multiple opening areas and then a deep abscess. Complications: None. Anesthesia: General plus local. Indications: This is the case of an 88-year-old patient, comes to us with a history of shingles in o ne of the dermatomes, multiple ulcers. This is different. This is just in the middle, probably rela john to some ulcers before. He was getting antibiotics and then developed into an abscess. For that reason, he was fully explained the need for debridement since there was devitalized tissue present an d also drainage of an abscess with benefits, alternatives, and risks including, but not limited to in fection, bleeding, damage to adjacent structures, anesthesia complication, nonhealing wound, OH, and even . He also understands this may not relieve any symptoms, he might need more than one surgi imtiaz intervention. He understood, signed a consent. The area of concern was marked by me and the pat ient in the holding room. The OR was notified about the precautions due to the history of shingles. Description Of Procedure: The patient was brought to the operating room, placed in supine position. Anesthesia was done without complication. The patient was placed in lateral decubitus position with proper protection. Back area was prepped and draped in usual sterile fashion. We proceeded to titus ve the necrotic tissue present and we found a deep abscess. The abscess have multiple loculations. The devitalized tissue was excised, debrided subcutaneously. The area was irrigated and the area was cultured and sent to the pathologist. The patient tolerated the procedure well. Sponge counts and instrument counts were correct. The patient was sent to recovery in stable condition. IRENE/JAYNA Voice ID: [id number] Report ID: [id number]
[2018-10-19] MEDS: ENOXAPARIN 30 MG/0.3 ML SQ SCH (08:45)
[2018-10-19] MEDS: METOPROLOL TAR 50 MG TAB PO SCH ×2 (08:47→20:55)
[2018-10-19] MEDS: GABAPENTIN 300 MG CAP PO SCH ×2 (08:47→20:55)
[2018-10-19] MEDS: CLOPIDOGREL 75 MG TABLET PO SCH (08:47)
[2018-10-19] MEDS: TRAMADOL HCL 50 MG TAB PO SCH ×2 (08:47→20:55)
[2018-10-19] MEDS: LISINOPRIL 20 MG TAB PO SCH (08:48)
[2018-10-19] MEDS: VANCOMYCIN 1.25 GM in NA CHLORIDE 0.9% 250 ML IVPB SCH (11:03)
[2018-10-19] MEDS: ATORVASTATIN 10 MG TAB PO SCH (20:55)
--- NOTE | 2018-10-19 21:36 | PN ---
The patient is doing better. He is ambulating in the room. The patient has MRSA. The patient has a social service consult for discharge planning as well as home health to deal with the open wound on the back. ASIA/JAYNA Voice ID: [id number] Report ID: [id number]
[2018-10-20 03:47] VITALS: O2SAT 96
[2018-10-20] MEDS: VANCOMYCIN 1.25 GM in NA CHLORIDE 0.9% 250 ML IVPB SCH (09:35)
[2018-10-20] MEDS: CLOPIDOGREL 75 MG TABLET PO SCH (09:35)
[2018-10-20] MEDS: ENOXAPARIN 30 MG/0.3 ML SQ SCH (09:35)
[2018-10-20] MEDS: LISINOPRIL 20 MG TAB PO SCH (09:35)
[2018-10-20] MEDS: GABAPENTIN 300 MG CAP PO SCH (09:35)
[2018-10-20] MEDS: TRAMADOL HCL 50 MG TAB PO SCH (09:36)
[2018-10-20] MEDS: METOPROLOL TAR 50 MG TAB PO SCH (09:36)
[2018-10-20 12:01] VITALS: BP 155/65; TEMP 98.4
== END 2018-10-20 14:00 | disposition home health service (06) ==
LOC: ER 21:02 → ERHOLD 10-16 01:35 → 4TH 10-16 01:58
PROVIDERS: ADMIT Internal Medicine; ATTEND Internal Medicine
PROC: 0J970ZZ Drainage of Back Subcutaneous Tissue and Fascia, Open Approach (ICD-10-PCS; principal; 2018-10-18 12:45)
DX: L02.212 Cutaneous abscess of back [any part, except buttock and flank] (principal); L98.429 Non-pressure chronic ulcer of back with unspecified severity; B95.62 Methicillin resistant Staphylococcus aureus infection as the cause of diseases classified elsewhere; B02.8 Zoster with other complications; I10 Essential (primary) hypertension; E78.5 Hyperlipidemia, unspecified; I25.10 Atherosclerotic heart disease of native coronary artery without angina pectoris; Z98.61 Coronary angioplasty status; Z93.3 Colostomy status
CPT/HCPCS: 10060; 36415 ×4; 74177; 80048 ×2; 80076; 80202 ×2; 82550; 82553; 83690; 84145; 84484; 85025 ×2; 85610; 85730; 87040 ×2; 87070 ×2; 87075; 87077 ×2; 87186 ×2; 87205 ×3; 88304; 96365; 96366; 96367; 96375; 99285; G0378 ×2; J0133; J0696; J1650 ×3; J2001; J2704; J3010; J7030; Q9967; 81003; 81015

== ENCOUNTER 2018-10-29 19:42 | Observation (INO) | payer OTHER ==
--- OUTSIDE RECORDS SUMMARY | 2018-10-29 19:44 | XMS REPORT | Clinical Summary ---
:1930 Author Organization [facility] Address [address] [place] [address] Care Team Providers Name Role Phone Zack [...] of colon, unspecified part of colon after 10/28/2017 Social History Tobacco Use Types Packs/Day Years [...] Health Maintenance Due Date Last Done Comments SHINGLES VACCINES (1 of 2) 1981 PNEUMOCOCCAL POLYSACCHARIDE VACCINE AGE 65 AND OVER 1996 PNEUMOCOCCAL-13 1996 INFLUENZA VACCINE 06/09/2018 Implants Implanted Type Area Floor Refinisher Device Shelf Model / Identifier Expiration Serial / Date Lot Drain Wnd Chnl 19fr 4in Rnd Hbls Fl-Flut W/ 4in Trocar - [id number] Surgical N/A: N/A [employer] 2231 [...] the procedure well with no immediate complications PA AN ELECTIVE ENDOTRACHEAL AIRWAY Routine 03/02/2018 12:06 PM CDT Procedure Note - Benjie Lyon CRNA - 03/02/2018 12:06 PM CDT Airway Date/Time: 03/02/2018 10:42 AM Performed by: BENJIE LYON Authorized by: ALESSANDRO SANDOVAL Location: OR Urgency: Elective Difficult Airway: No Resident/LITHOGRAPH PRINTER/AA: BENJIE LYON Preoxygenated with 100% O2: Yes [...] procedure are in the results section. after 10/28/2017 Results Estimated GFR (03/05/2018 4:06 AM CDT)Only the most recent of4 resultswithin the time period is included. GFR Non Af Amer 80 mL/min/1.73 m2 [facility] DEPARTMENT OF PATHOLOGY AND GENOMIC MEDICINE GFR Af Amer >90 mL/min/1.73 m2 [facility] DEPARTMENT OF Comment: PATHOLOGY AND GENOMIC [...] specimen Performing Organization Address City/State/Zipcode Phone Number [facility] DEPARTMENT OF PATHOLOGY AND [address] [place] [address] [employer] CBC with platelet and differential (03/05/2018 4:06 AM CDT)Only the most recent of4 resultswithin the time period is included. WBC 9.43 4.50 - 11.00 k/uL [facility] DEPARTMENT OF PATHOLOGY AND GENOMIC MEDICINE RBC 3.14 (L) 4.40 - 6.00 m/uL [facility] DEPARTMENT OF PATHOLOGY AND GENOMIC MEDICINE HGB 9.3 (L) 14.0 - 18.0 g/dL [facility] DEPARTMENT OF PATHOLOGY AND GENOMIC MEDICINE HCT 28.1 (L) 41.0 - 51.0 % [facility] DEPARTMENT OF PATHOLOGY AND GENOMIC MEDICINE MCV 89.5 82.0 - 100.0 fL [facility] DEPARTMENT OF PATHOLOGY AND GENOMIC MEDICINE MCH 29.6 27.0 - 34.0 pg [facility] DEPARTMENT OF PATHOLOGY AND GENOMIC MEDICINE MCHC 33.1 31.0 - 37.0 g/dL [facility] DEPARTMENT OF PATHOLOGY AND GENOMIC MEDICINE RDW - SD 43.2 37.0 - 55.0 fL [facility] DEPARTMENT OF PATHOLOGY AND GENOMIC MEDICINE MPV 9.5 8.8 - 13.2 fL [facility] DEPARTMENT OF PATHOLOGY AND GENOMIC MEDICINE Platelet count 241 150 - 400 k/uL [facility] DEPARTMENT OF PATHOLOGY AND GENOMIC MEDICINE Nucleated RBC 0.00 /100 WBC [facility] DEPARTMENT OF PATHOLOGY AND GENOMIC MEDICINE Neutrophils 70.4 (H) 39.0 - 69.0 % [facility] DEPARTMENT OF PATHOLOGY AND GENOMIC MEDICINE Lymphocytes 15.3 (L) 25.0 - 45.0 % [facility] DEPARTMENT OF PATHOLOGY AND GENOMIC MEDICINE Monocytes 10.3 (H) 0.0 - 10.0 % [facility] DEPARTMENT OF PATHOLOGY AND GENOMIC MEDICINE Eosinophils 3.0 0.0 - 5.0 % [facility] DEPARTMENT OF PATHOLOGY AND GENOMIC MEDICINE Basophils 0.6 0.0 - 1.0 % [facility] DEPARTMENT OF PATHOLOGY AND GENOMIC MEDICINE Immature granulocytes 0.4Comment: 0.0 - 1.0 % [facility] DEPARTMENT OF "Immature PATHOLOGY AND GENOMIC granulocytes" MEDICINE (promyelocytes, myelocytes, metamyelocytes) Specimen Blood Performing Organization Address City/[facility]/Zipcode Phone Number [facility] DEPARTMENT OF PATHOLOGY AND [address] [place] [phone] [facility] Phosphorus level (03/05/2018 4:06 AM CDT)Only the most recent of3 resultswithin the time period is included. Phosphorus 2.0 (L) 2.4 - 4.5 mg/dL [facility] DEPARTMENT OF PATHOLOGY AND GENOMIC MEDICINE Specimen Plasma specimen Performing Organization Address City/State/Zipcode Phone Number [facility] DEPARTMENT OF PATHOLOGY AND [address] [place] [phone] [place] [address] MEDICINE Magnesium level (03/05/2018 4:06 AM CDT)Only the most recent of3 resultswithin the time period is included. Magnesium 2.1 1.6 - 2.4 mg/dL [facility] DEPARTMENT OF PATHOLOGY AND GENOMIC MEDICINE Specimen Plasma specimen Performing Organization Address City/[facility] Phone Number [facility] DEPARTMENT OF PATHOLOGY AND [address] [place] [phone] [place] [address] MEDICINE Basic metabolic panel (03/05/2018 4:06 AM CDT)Only the most recent of3 resultswithin the time period is included. Sodium 138 135 - 148 mEq/L [facility] DEPARTMENT OF PATHOLOGY AND GENOMIC MEDICINE Potassium 3.9 3.5 - 5.0 mEq/L [facility] DEPARTMENT OF PATHOLOGY AND GENOMIC MEDICINE Chloride 104 98 - 112 mEq/L [facility] DEPARTMENT OF PATHOLOGY AND GENOMIC MEDICINE CO2 26 24 - 31 mEq/L [facility] DEPARTMENT OF PATHOLOGY AND GENOMIC MEDICINE Anion gap 8 7 - 15 mEq/L [facility] DEPARTMENT OF PATHOLOGY Comment: AND [facility] Starting from February , anion gap calculation no longer incorporates potassium. Please note the change. BUN 8 8 - 23 mg/dL [facility] DEPARTMENT OF PATHOLOGY AND GENOMIC MEDICINE Creatinine 0.9 0.7 - 1.2 mg/dL [facility] DEPARTMENT OF PATHOLOGY AND GENOMIC MEDICINE Glucose 102 (H) 65 - 99 mg/dL [facility] DEPARTMENT OF PATHOLOGY AND GENOMIC MEDICINE Calcium 8.1 (L) 8.8 - 10.2 mg/dL [facility] DEPARTMENT OF PATHOLOGY AND GENOMIC MEDICINE Specimen Plasma specimen Performing Organization Address City/[facility] Phone Number [facility] DEPARTMENT OF PATHOLOGY AND [address] [place], [place] [phone] [facility] MEDICINE Ionized calcium (03/03/2018 3:35 AM CDT) pH 7.43 [facility] DEPARTMENT OF PATHOLOGY AND GENOMIC MEDICINE Ionized calcium 1.10 (L) 1.11 - 1.32 mmol/L [facility] DEPARTMENT OF PATHOLOGY AND GENOMIC MEDICINE Specimen Plasma specimen Performing Organization Address City/[facility] Phone Number [facility] DEPARTMENT OF PATHOLOGY AND [address] [place] [phone] [place] [address] Urinalysis screen and microscopy, with reflex to culture (03/03/2018 1:43 AM CDT) Specimen site Catheterized [facility] DEPARTMENT OF PATHOLOGY AND GENOMIC MEDICINE Color, UA Yellow [facility] DEPARTMENT OF PATHOLOGY AND GENOMIC MEDICINE Appearance, UA Clear [facility] DEPARTMENT OF PATHOLOGY AND GENOMIC MEDICINE Specific gravity, UA 1.020 1.001 - 1.035 [facility] DEPARTMENT OF PATHOLOGY AND GENOMIC MEDICINE pH, UA 5.0 5.0 - 8.5 [facility] DEPARTMENT OF PATHOLOGY AND GENOMIC MEDICINE Protein, UA Negative Negative [facility] DEPARTMENT OF PATHOLOGY AND GENOMIC MEDICINE Glucose, UA Negative Negative [facility] DEPARTMENT OF PATHOLOGY AND GENOMIC MEDICINE Ketones, UA Negative Negative [facility] DEPARTMENT OF PATHOLOGY AND GENOMIC MEDICINE Bilirubin, UA Negative Negative [facility] DEPARTMENT OF PATHOLOGY AND GENOMIC MEDICINE Blood, UA Moderate (A) Negative [facility] DEPARTMENT OF PATHOLOGY AND GENOMIC MEDICINE Nitrite, UA Negative Negative [facility] DEPARTMENT OF PATHOLOGY AND GENOMIC MEDICINE Urobilinogen, UA <2.0 <2.0 [facility] DEPARTMENT OF PATHOLOGY AND GENOMIC MEDICINE Leukocyte esterase, UA Negative Negative [facility] DEPARTMENT OF PATHOLOGY AND GENOMIC MEDICINE WBC, UA 6 (H) 0 - 1 /HPF [facility] DEPARTMENT OF PATHOLOGY AND GENOMIC MEDICINE RBC, UA 30 (H) 0 - 5 /HPF [facility] DEPARTMENT OF PATHOLOGY AND GENOMIC MEDICINE Bacteria, UA Few None seen [facility] DEPARTMENT OF PATHOLOGY AND GENOMIC MEDICINE Yeast, UA None seen [facility] DEPARTMENT OF PATHOLOGY AND GENOMIC MEDICINE Yeast with pseudohyphae, UA None seen [facility] DEPARTMENT OF PATHOLOGY AND GENOMIC MEDICINE Hyaline casts, UA 5 /LPF [facility] DEPARTMENT OF PATHOLOGY AND GENOMIC MEDICINE Specimen Urine Performing Organization Address City/[facility] Phone Number [facility] DEPARTMENT OF PATHOLOGY AND [address] [place] [address] MEDICINE Gram stain (03/03/2018 1:43 AM CDT) Gram stain result Few WBC's [facility] DEPARTMENT OF PATHOLOGY No organisms seen AND GENOMIC MEDICINE Comment: Specimen Information Specimen Source: Urine Specimen Site: Catheterized Specimen Urine - Catheterized Performing Organization Address City/[facility]/Zipcode Phone Number [facility] DEPARTMENT OF PATHOLOGY AND [address] [place] [phone] [facility] Urine culture (03/03/2018 1:43 AM CDT) Urine culture isolate No growth after 1 day. [facility] DEPARTMENT OF Comment: PATHOLOGY AND GENOMIC Specimen Information MEDICINE Specimen Source: Urine Specimen Site: Catheterized Specimen Urine - Catheterized Performing Organization Address City/[facility]/Zipcode Phone Number [facility] DEPARTMENT OF PATHOLOGY AND [address] [place] [phone] GENOMIC MEDICINE Surgical pathology request (03/02/2018 2:48 PM CDT) [facility] DEPARTMENT OF PATHOLOGY AND GENOMIC MEDICINE Surgical pathology report See link below for PDF [facility] DEPARTMENT OF Lab Report PATHOLOGY AND GENOMIC MEDICINE Result status This is Final Report to [facility] DEPARTMENT OF [id number] PATHOLOGY AND GENOMIC MEDICINE Performing Organization Address City/[facility] Phone Number [facility] DEPARTMENT OF PATHOLOGY AND [address] [place] [address] GENOMIC MEDICINE Urinalysis, automated with microscopy (03/02/2018 10:13 AM CDT) Color, UA Straw [facility] DEPARTMENT OF PATHOLOGY AND GENOMIC MEDICINE Appearance, UA Clear [facility] DEPARTMENT OF PATHOLOGY AND GENOMIC MEDICINE Specific gravity, UA 1.011 1.001 - 1.035 [facility] DEPARTMENT OF PATHOLOGY AND GENOMIC MEDICINE pH, UA 5.0 5.0 - 8.5 [facility] DEPARTMENT OF PATHOLOGY AND GENOMIC MEDICINE Protein, UA Negative Negative [facility] DEPARTMENT OF PATHOLOGY AND GENOMIC MEDICINE Glucose, UA Negative Negative [facility] DEPARTMENT OF PATHOLOGY AND GENOMIC MEDICINE Ketones, UA Negative Negative [facility] DEPARTMENT OF PATHOLOGY AND GENOMIC MEDICINE Bilirubin, UA Negative Negative [facility] DEPARTMENT OF PATHOLOGY AND GENOMIC MEDICINE Blood, UA Negative Negative [facility] DEPARTMENT OF PATHOLOGY AND GENOMIC MEDICINE Nitrite, UA Negative Negative [facility] DEPARTMENT OF PATHOLOGY AND GENOMIC MEDICINE Urobilinogen, UA <2.0 <2.0 [facility] DEPARTMENT OF PATHOLOGY AND GENOMIC MEDICINE Leukocyte esterase, UA Negative Negative [facility] DEPARTMENT OF PATHOLOGY AND GENOMIC MEDICINE WBC, UA None seen 0 - 1 /HPF [facility] DEPARTMENT OF PATHOLOGY AND GENOMIC MEDICINE RBC, UA None seen 0 - 5 /HPF [facility] DEPARTMENT OF PATHOLOGY AND GENOMIC MEDICINE Bacteria, UA None seen None seen [facility] DEPARTMENT OF PATHOLOGY AND GENOMIC MEDICINE Hyaline casts, UA 5 /LPF [facility] DEPARTMENT OF PATHOLOGY AND GENOMIC MEDICINE Yeast, UA None seen [facility] DEPARTMENT OF PATHOLOGY AND GENOMIC MEDICINE Yeast with pseudohyphae, UA None seen [facility] DEPARTMENT OF PATHOLOGY AND GENOMIC MEDICINE Specimen Urine Performing Organization Address City/[facility]/Zipcode Phone Number [facility] DEPARTMENT OF PATHOLOGY AND [address] [place] [address] GENOMIC MEDICINE Type and screen (02/16/2018 12:39 PM CDT) ABO grouping O [facility] DEPARTMENT OF PATHOLOGY AND GENOMIC MEDICINE Rh type POS [facility] DEPARTMENT OF PATHOLOGY AND GENOMIC MEDICINE Antibody screen (gel) NEG [facility] DEPARTMENT OF PATHOLOGY AND GENOMIC MEDICINE Specimen Blood Performing Organization Address City/State/Zipcode Phone Number [facility] DEPARTMENT OF PATHOLOGY AND [address] [place] [address] GENOMIC MEDICINE Comprehensive metabolic panel (02/16/2018 12:39 PM CDT) Sodium 139 135 - 148 mEq/L [facility] DEPARTMENT OF PATHOLOGY AND GENOMIC MEDICINE Potassium 5.1 (H) 3.5 - 5.0 mEq/L [facility] DEPARTMENT OF PATHOLOGY AND GENOMIC MEDICINE Chloride 99 98 - 112 mEq/L [facility] DEPARTMENT OF PATHOLOGY AND GENOMIC MEDICINE CO2 29 24 - 31 mEq/L [facility] DEPARTMENT OF PATHOLOGY AND GENOMIC MEDICINE Anion gap 11 7 - 15 mEq/L [facility] DEPARTMENT OF Comment: PATHOLOGY AND GENOMIC Starting from February , anion gap calculation MEDICINE no longer incorporates potassium. Please note the change. BUN 13 8 - 23 mg/dL [facility] DEPARTMENT OF PATHOLOGY AND GENOMIC MEDICINE Creatinine 1.2 0.7 - 1.2 mg/dL [facility] DEPARTMENT OF PATHOLOGY AND GENOMIC MEDICINE Glucose 101 (H) 65 - 99 mg/dL [facility] DEPARTMENT OF PATHOLOGY AND GENOMIC MEDICINE Calcium 9.2 8.8 - 10.2 mg/dL [facility] DEPARTMENT OF PATHOLOGY AND GENOMIC MEDICINE Protein 6.7 6.3 - 8.3 g/dL [facility] DEPARTMENT OF Comment: PATHOLOGY AND GENOMIC [place] 4.6-7.0 g/dL MEDICINE 1 week 4.4-7.6 g/dL 7 months-1year5.1-7.3 g/dL 1-2 years5.6-7.5 g/dL >3 years6.0-8.0 g/dL 18-150 6.3-8.3 g/dL Albumin 3.4 (L) 3.5 - 5.0 g/dL [facility] DEPARTMENT OF PATHOLOGY AND GENOMIC MEDICINE A/G ratio 1.0 0.7 - 3.8 [facility] DEPARTMENT OF PATHOLOGY AND GENOMIC MEDICINE Alkaline phosphatase 69 40 - 129 U/L [facility] DEPARTMENT OF PATHOLOGY AND GENOMIC MEDICINE AST 24 10 - 50 U/L [facility] DEPARTMENT OF PATHOLOGY AND GENOMIC MEDICINE ALT 19 5 - 50 U/L [facility] DEPARTMENT OF PATHOLOGY AND GENOMIC MEDICINE Total bilirubin 0.3 0.0 - 1.2 mg/dL [facility] DEPARTMENT OF PATHOLOGY AND GENOMIC MEDICINE Specimen Plasma specimen Performing Organization Address City/State/Zipcode Phone Number [facility] DEPARTMENT OF PATHOLOGY AND [address] [place] [address] GENOMIC MEDICINE after 10/28/2017 Insurance Payer Benefit Plan / Group Subscriber ID Type Phone Address VIANCA COLEY [facility] xxxxxxxxx O Advance Directives Patient has advance care planning documents on file. For more information, please contact:Zachery Cruz[address] [place] [address]
--- NOTE | 2018-10-29 20:39 | RAD REPORT ---
EXAM DESCRIPTION: RAD - Chest Single View - 10/29/2018 8:28 pm CLINICAL HISTORY: dizziness, general weakness Chest pain. COMPARISON: Chest Single View dated 09/28/2018; Chest Single View dated 09/26/2018; Chest Single Vie w dated 01/31/2018; Chest Pa And Lat (2 Views) dated 07/22/2017 FINDINGS: Portable technique limits examination quality. The lungs are grossly clear. The heart is normal in size. No displaced fractures. IMPRESSION: No acute intrathoracic process suspected.
[2018-10-29 20:43] LABS: Absolute Lymphocytes (CBC) 1.7 K/uL (0.7-4.9); Absolute Monocytes 0.7 K/uL (0.1-1.3); Absolute Neutrophil 6.6 K/uL (1.8-8.0); Basophils % 0.7 % (0-1.3); Eosinophils % 2.6 % (0-4.4); Hematocrit 34.9 % (39.6-49.0); Lymphocytes % 18.2 % (15.3-44.8); MPV 7.6 fL (7.6-11.3); Monocytes % 7.9 % (3.3-12.3); RBC Red Blood Cell Count 3.86 M/uL (4.33-5.43)
[2018-10-29 20:44] LABS: Protime INR 0.99
[2018-10-29 20:58] LABS: ALT/SGPT 22 U/L (12-78); AST/SGOT 19 U/L (15-37); Albumin 3.5 g/dL (3.4-5.0); Alkaline Phosphatase 88 U/L (45-117); BUN Blood Urea Nitrogen 33 mg/dL (7-18); Bicarbonate 21 mmol/L (21-32); Bilirubin Direct 0.1 mg/dL (0-0.2); Bilirubin Total 0.3 mg/dL (0.2-1.0); Glucose Level 99 mg/dL (74-106); Magnesium 2.4 mg/dL (1.8-2.4); NT PRO-BNP 257 pg/mL (<450); Potassium 4.8 mmol/L (3.5-5.1); Protein, Total 6.9 g/dL (6.4-8.2); Sodium Level 132 mmol/L (136-145); Troponin (Emerg Dept Use Only) < 0.02 ng/mL (0.0-0.045)
--- NOTE | 2018-10-29 20:58 | RAD REPORT ---
EXAM DESCRIPTION: CT - Head Brain Wo Cont - 10/29/2018 8:53 pm CLINICAL HISTORY: DIZZINESS Drowsiness COMPARISON: No comparisons TECHNIQUE: All CT scans are performed using dose optimization technique as appropriate and may inclu de automated exposure control or mA/KV adjustment according to patient size. FINDINGS: No intracranial hemorrhage, hydrocephalus or extra-axial fluid collection.Mild generalized brain atrophy is present with mild periventricular and deep white matter chronic microvascular ische jessica changes.No areas of brain edema or evidence of midline shift. The paranasal sinuses and mastoids are clear. The calvarium is intact. IMPRESSION: No acute intracranial abnormality.
[2018-10-29] MEDS ORDERED: NA CHLORIDE 0.9% 1,000 ML ONE (21:38)
[2018-10-29 22:26] LABS: Urine Blood NEGATIVE (NEG); Urine Glucose NEGATIVE (NEG); Urine Protein NEGATIVE (NEG); Urine pH 5.5 (5.0-7.0)
--- NOTE | 2018-10-29 22:35 | ER ---
Nurse's Notes [facility] Name: Alvaro Rivers Age: 88 yrs Sex: Male : 1930 Arrival Date: 10/29/2018 Time: 19:45 Bed 30 Private MD: Diagnosis: Weakness-general;Unspecified kidney failure Presentation: 10/29 20:00 Presenting complaint: Patient states: states he has been feeling dizzy for approx a bb month and weak pt had wound vac placed to his back today from a wound s/p shingles which was bleeding for several weeks prior to placement, also pt noticed his colostomy bag has not been as full as usual. Transition of care: patient was not received from another setting of care. No acute neurological deficit is noted. Onset of symptoms was September 2018. Risk Assessment: Do you want to hurt yourself or someone else? Patient reports no desire to harm self or others. Initial Sepsis Screen: Does the patient meet any 2 criteria? No. Patient's initial sepsis screen is negative. Does the patient have a suspected source of infection? No. Patient's initial sepsis screen is negative. Care prior to arrival: None. 20:00 Method Of Arrival: Ambulatory bb 20:00 Acuity: VIRGILIO 2 bb Historical: - Allergies: 20:06 No Known Allergies; bb - Home Meds: 20:06 gabapentin 300 mg oral cap 1 cap twice a day [Active]; lisinopril 20 mg Oral tab 1 tab bb once daily [Active]; metoprolol tartrate 50 mg Oral tab 1 tab 2 times per day [Active]; Plavix 75 mg Oral tab 1 tab once daily [Active]; pravastatin 40 mg Oral tab nightly [Active]; nitroglycerin 0.4 mg SL subl 1 tab every 5 minutes [Active]; Tylenol-Codeine #3 300-30 mg oral tab 1 tab every 4 hours [Active]; pantoprazole 40 mg oral TbEC 1 tab once daily [Active]; - PMHx: 20:06 cardiac stent; Diverticulitis; Hyperlipidemia; Hypertension; shingles; bb - PSHx: 20:06 Heart stents; bowel resection with colostomy; bb - Immunization history:: Adult Immunizations up to date. - Social history:: Smoking status: Patient/guardian denies using tobacco, Patient/guardian denies using alcohol, street drugs. - Ebola Screening: : No symptoms or risks identified at this time. Screenin:34 Abuse screen: Denies threats or abuse. Denies injuries from another. Nutritional mg2 screening: No deficits noted. Tuberculosis screening: No symptoms or risk factors identified. Fall Risk Secondary diagnosis (15 points) dizziness. IV access (20 points). Assessment: 20:46 General: Appears in no apparent distress. comfortable, Behavior is calm, cooperative. mg2 Pain: Denies pain. Neuro: Level of Consciousness is awake, alert, obeys commands, Oriented to person, place, time. Neuro: Reports dizziness, since 1 month. Cardiovascular: Capillary refill < 3 seconds Patient's skin is warm and dry. Respiratory: Airway is patent Respiratory effort is even, unlabored, Respiratory pattern is regular, symmetrical. GI: colostomy bag in situ. : No signs and/or symptoms were reported regarding the genitourinary system. EENT: No signs and/or symptoms were reported regarding the EENT system. Derm: Skin is intact, is healthy with good turgor, Skin is pink, warm \T\ dry. normal. Musculoskeletal: No signs and/or symptoms reported regarding the musculoskeletal system. 20:49 Reassessment: patient sent to ct scan. mg2 Vital Signs: 20:06 BP 131 / 76; Pulse 60; Resp 18 S; Temp 98.8(O); Pulse Ox 97% on R/A; Weight 68.95 kg bb (R); Height 5 ft. 5 in. (165.10 cm) (R); 20:44 BP 120 / 54 Supine; Pulse 61; Resp 18; Pulse Ox 100% on R/A; mg2 20:44 BP 119 / 60 Sitting; mg2 20:44 BP 117 / 54 Standing; mg2 21:55 BP 115 / 50; Pulse 51; Resp 18; Pulse Ox 100% on R/A; Pain 0/10; mg2 23:54 BP 104 / 54; Pulse 58; Resp 18; Pulse Ox 100% on R/A; Pain 0/10; mg2 20:06 Body Mass Index 25.29 (68.95 kg, 165.10 cm) bb ED Course: 19:45 Patient arrived in ED. ag3 19:50 Darren Mccoy PA is PHCP. cp 19:50 Darren Ayala MD is Attending Physician. cp 19:59 Adarsh Hua, RN is Primary Nurse. mg2 20:03 Triage completed. bb 20:06 Arm band placed on Patient placed in an exam room, on a stretcher, on pulse oximetry. bb EKG completed in triage. Results shown to MD. 20:29 XRAY Chest (1 view) In Process Unspecified. EDMS 20:34 No provider procedures requiring assistance completed. Inserted saline lock: 20 gauge mg2 in left antecubital area, using aseptic technique. Blood collected. 20:[address] via stretcher. vm2 20:48 Patient has correct armband on for positive identification. shelter monitor on. Pulse mg2 ox on. NIBP on. Door closed. Warm blanket given. 20:51 CT completed. Patient tolerated procedure well. Patient moved back from CT. vm2 20:52 CT Head Brain wo Cont In Process Unspecified. EDMS 22:32 Zack Gross MD is Hospitalizing Provider. cp 22:57 Ultrasound completed. Patient tolerated well. Notified DECK MECHANIC/KENDRA jose. sg3 22:58 US Rp Exam Complete In Process Unspecified. EDMS 23:30 Warm blanket given. Turned to right side. tl3 23:42 Patient admitted, IV remains in place. tl3 Administered Medications: 21:02 CANCELLED (Physician Discretion): NS 0.9% 1000 ml IV at 75 ml/hr continuous cp 21:34 Drug: NS 0.9% 1000 ml Route: IV; Rate: 60 ml/hr; Site: left antecubital; mg2 23:53 Follow up: Response: No adverse reaction; IV Status: Infusion continued upon admission mg2 Outcome: 22:35 Decision to Hospitalize by Provider. cp 23:40 Admitted to Tele accompanied by tech, via wheelchair, with chart, Report called to sagar Chambers RN 23:40 Condition: stable 23:40 Instructed on the need for admit. 10/30 00:17 Patient left the ED. mg2 Signatures: Dispatcher [employer] EDLeah Edwards RN RN bb Page, Corey, PA PA cp McGuire, Victoria 2 Breanne Chi 3 Julia Smith RN RN 3 Adarsh Hua RN RN mg2 Caren Grace ag3 Corrections: (The following items were deleted from the chart) 10/29 20:48 20:46 Neuro: Reports dizziness, since 1 week mg2 mg2
--- NOTE | 2018-10-29 22:35 | EDPHYS ---
Physician Documentation [facility] Name: Alvaro Rivers Age: 88 yrs Sex: Male : 1930 Arrival Date: 10/29/2018 Time: 19:45 Bed 30 Private MD: ED Physician Darren Ayala HPI: 10/29 20:05 This 88 yrs old Male presents to ER via Ambulatory with complaints of cp Dizziness, Weakness. 20:05 The patient presents with dizziness, lightheadedness. Onset: The symptoms/episode cp began/occurred 1 month(s) ago. 20:05 Context: occurred while the patient was standing, turning head. Patient also c/o cp general weakness over past several days. Associated signs and symptoms: Pertinent negatives: abdominal pain, chest pain, diaphoresis, focal weakness, syncope, vomiting. Severity of symptoms: in the emergency department the symptoms are unchanged despite home interventions. Patient's baseline: Neuro: alert and fully oriented, Motor: no deficits, Ambulation: walks without assistance, Speech: normal. Historical: - Allergies: 20:06 No Known Allergies; bb - Home Meds: 20:06 gabapentin 300 mg oral cap 1 cap twice a day [Active]; lisinopril 20 mg Oral tab 1 tab bb once daily [Active]; metoprolol tartrate 50 mg Oral tab 1 tab 2 times per day [Active]; Plavix 75 mg Oral tab 1 tab once daily [Active]; pravastatin 40 mg Oral tab nightly [Active]; nitroglycerin 0.4 mg SL subl 1 tab every 5 minutes [Active]; Tylenol-Codeine #3 300-30 mg oral tab 1 tab every 4 hours [Active]; pantoprazole 40 mg oral TbEC 1 tab once daily [Active]; - PMHx: 20:06 cardiac stent; Diverticulitis; Hyperlipidemia; Hypertension; shingles; bb - PSHx: 20:06 Heart stents; bowel resection with colostomy; bb - Immunization history:: Adult Immunizations up to date. - Social history:: Smoking status: Patient/guardian denies using tobacco, Patient/guardian denies using alcohol, street drugs. - Ebola Screening: : No symptoms or risks identified at this time. ROS: 20:10 Constitutional: Positive for poor PO intake, Negative for body aches, chills, fever. cp 20:10 Eyes: Negative for injury, pain, redness, and discharge. cp 20:10 ENT: Negative for drainage from ear(s), ear pain, sore throat, difficulty swallowing, difficulty handling secretions. 20:10 Cardiovascular: Negative for chest pain, edema, palpitations. 20:10 Respiratory: Negative for cough, shortness of breath, wheezing. 20:10 Abdomen/GI: Negative for abdominal pain, nausea, vomiting, and diarrhea, black/tarry stool, rectal bleeding. 20:10 Back: Negative for pain at rest, pain with movement. 20:10 : Negative for urinary symptoms. 20:10 Skin: Negative for cellulitis, rash. 20:10 Neuro: Positive for dizziness, general weakness, Negative for altered mental status, headache, syncope. 20:10 All other systems are negative. Exam: 20:05 ECG was reviewed by the Attending Physician. cp 20:15 Constitutional: The patient appears in no acute distress, alert, awake, cp non-diaphoretic, non-toxic, well developed, well nourished. 20:15 Head/Face: Normocephalic, atraumatic. cp 20:15 Eyes: Periorbital structures: appear normal, Pupils: equal, round, and reactive to light and accomodation, Extraocular movements: intact throughout, Conjunctiva: normal, no exudate, no injection, Sclera: no appreciated abnormality, Lids and lashes: appear normal, bilaterally. 20:15 ENT: External ear(s): are unremarkable, Ear canal(s): are normal, clear, TM's: bulging, is not appreciated, bilaterally, dullness, bilaterally, erythema, is not appreciated, bilaterally, Nose: is normal, Mouth: Lips: moist, Oral mucosa: moist, Posterior pharynx: is normal, airway is patent, no erythema, no exudate. 20:15 Neck: ROM/movement: is normal, is supple, without pain, no range of motions limitations, no meningismus, no nuchal rigidity. 20:15 Chest/axilla: Inspection: normal, Palpation: is normal, no crepitus, no tenderness. 20:15 Cardiovascular: Rate: normal, Rhythm: regular, Edema: is not appreciated, JVD: is not appreciated. 20:15 Respiratory: the patient does not display signs of respiratory distress, Respirations: normal, no use of accessory muscles, no retractions, no splinting, no tachypnea, labored breathing, is not present, Breath sounds: are clear throughout, no decreased breath sounds, no stridor, no wheezing. 20:15 Abdomen/GI: Inspection: noted colostomy lower abdomen, Bowel sounds: active, all quadrants, Palpation: abdomen is soft and non-tender, in all quadrants, rebound tenderness, is not appreciated, voluntary guarding, is not appreciated, involuntary guarding, is not appreciated. 20:15 Back: ROM is normal, CVA tenderness, is absent, wound Vac noted to mid back area. 20:15 Musculoskeletal/extremity: Exam is negative for decreased range of motion, edema, injury. 20:15 Skin: cellulitis, is not appreciated, no rash present. 20:15 Neuro: Orientation: to person, place \T\ time. Mentation: lucid, able to follow commands, Motor: moves all fours, negative for focal deficits, Sensation: is normal, Gait: is steady. Vital Signs: 20:06 BP 131 / 76; Pulse 60; Resp 18 S; Temp 98.8(O); Pulse Ox 97% on R/A; Weight 68.95 kg bb (R); Height 5 ft. 5 in. (165.10 cm) (R); 20:44 BP 120 / 54 Supine; Pulse 61; Resp 18; Pulse Ox 100% on R/A; mg2 20:44 BP 119 / 60 Sitting; mg2 20:44 BP 117 / 54 Standing; mg2 21:55 BP 115 / 50; Pulse 51; Resp 18; Pulse Ox 100% on R/A; Pain 0/10; mg2 23:54 BP 104 / 54; Pulse 58; Resp 18; Pulse Ox 100% on R/A; Pain 0/10; mg2 20:06 Body Mass Index 25.29 (68.95 kg, 165.10 cm) bb MDM: 19:50 Patient medically screened. cp 22:30 Physician consultation: Zack Gross MD was called at 22:30, was contacted at 22:30, cp regarding admission, to the telemetry unit. patient's condition. 22:30 Data reviewed: vital signs, nurses notes, lab test result(s), EKG, radiologic studies, cp CT scan, plain films, and as a result, I will admit patient. 22:30 Test interpretation: by ED physician or midlevel provider: ECG, plain radiologic cp studies. 10/29 20:01 Order name: Basic Metabolic Panel cp 10/29 20:01 Order name: CBC with Diff; Complete Time: 21:00 cp 10/29 21:01 Interpretation: Normal except: WBC 9.3; RBC 3.86; HGB 11.9; HCT 34.9; PLT 353. cp 10/29 20:01 Order name: LFT's; Complete Time: 22:04 cp 10/29 22:04 Interpretation: Normal except: A/G 1.0. cp 10/29 20: Order name: Magnesium; Complete Time: 22:04 cp 10/29 20:01 Order name: NT PRO-BNP; Complete Time: 22:04 cp 10/29 20: Order name: PT-INR; Complete Time: 21:00 cp 10/29 20: Order name: Troponin (emerg Dept Use Only); Complete Time: 22:04 cp 10/29 20:01 Order name: Basic Metabolic Panel; Complete Time: 21:01 EDMS 10/29 21: Interpretation: Normal except: NA 132; BUN 33; CRE 1.99; GFR 32. cp 10/29 21:38 Order name: Urine Microscopic Only cp 10/29 22:17 Order name: Urine Dipstick--Ancillary (enter results); Complete Time: 22:29 gm 10/29 23:01 Order name: Basic Metabolic Panel EDMS 10/29 23:01 Order name: Basic Metabolic Panel EDMS 10/29 23:01 Order name: CBC with Automated Diff EDMS 10/29 23:01 Order name: CBC with Automated Diff EDMS 10/29 20:01 Order name: CT Head Brain wo Cont; Complete Time: 21:00 cp 10/29 20:01 Order name: Orthostatics; Complete Time: 20:46 cp 10/29 20:01 Order name: XRAY Chest (1 view); Complete Time: 21:00 cp 10/29 20: Order name: EKG; Complete Time: 20:02 cp 10/29 20:01 Order name: Cardiac monitoring; Complete Time: 20:32 cp 10/29 20:01 Order name: EKG - Nurse/Tech; Complete Time: 20:32 cp 10/29 20: Order name: IV Saline Lock; Complete Time: 20:32 cp 10/29 20:01 Order name: Labs collected and sent; Complete Time: 20:32 cp 10/29 20:01 Order name: O2 Per Protocol; Complete Time: 20:32 cp 10/29 20:01 Order name: O2 Sat Monitoring; Complete Time: 20:33 cp 10/29 21:37 Order name: Urine Dipstick-Ancillary (obtain specimen); Complete Time: 22:16 cp 10/29 22:32 Order name: US Rp Exam Complete cp 10/29 23:01 Order name: Regular EDMS EC:05 Rate is 58 beats/min. Rhythm is regular. OH interval is normal. QRS interval is normal. cp QT interval is normal. T waves are Flattened in lead aVL. Interpreted by me. Reviewed by me. Administered Medications: 21:02 CANCELLED (Physician Discretion): NS 0.9% 1000 ml IV at 75 ml/hr continuous cp 21:34 Drug: NS 0.9% 1000 ml Route: IV; Rate: 60 ml/hr; Site: left antecubital; mg2 23:53 Follow up: Response: No adverse reaction; IV Status: Infusion continued upon admission mg2 Disposition: 10/29/18 22:35 Hospitalization ordered by Zack Gross for Observation. Preliminary diagnosis are Weakness - general, Unspecified kidney failure. - Bed requested for Telemetry/MedSurg (observation). - Status is Observation. mg2 - Condition is Stable. - Problem is new. - Symptoms have improved. UTI on Admission? No Addendum: 11/09/2018 10:55 Co-signature as Attending Physician, Darren Ayala MD I agree with the assessment and c dobbs plan of care. Signatures: Dispatcher [employer] EDOK Darren Ayala MD MD cha Ballard, Brenda, RN RN Darren Brown PA PA cp Joanna Guillory, MICKEY RN cg Adarsh Hua, MICKEY RN mg2 Corrections: (The following items were deleted from the chart) 10/29 21:02 21:02 NS 0.9% 1000 ml IV at 75 ml/hr continuous ordered. cp cp 23:30 22:35 Hospitalization Ordered by Zack Gross MD for Observation. Preliminary diagnosis cg is Weakness - general; Unspecified kidney failure. Bed requested for Telemetry/MedSurg (observation). Status is Observation. Condition is Stable. Problem is new. Symptoms have improved. UTI on Admission? No. cp 10/30 00:17 10/29 23:30 10/29/2018 22:35 Hospitalization Ordered by Zack Gross MD for Observation. mg2 Preliminary diagnosis is Weakness - general; Unspecified kidney failure. Bed requested for Telemetry/MedSurg (observation). Status is Observation. Condition is Stable. Problem is new. Symptoms have improved. UTI on Admission? No. cg
[2018-10-29 22:41] LABS: Urine Bacteria <20 /HPF (NONE SEEN); Urine Culture Reflex Order NOT NEEDED; Urine Mucus LIGHT /HPF (NONE SEEN); Urine RBC <5 /HPF (NONE SEEN)
[2018-10-29] MEDS ORDERED: ACETAMINOPHEN 500 MG TAB PO PRN (22:58)
[2018-10-29] MEDS: NA CHLORIDE 0.9% 1,000 ML IV SCH (23:00)
[2018-10-30 00:24] VITALS: BMI 25.3
[2018-10-30 05:15] LABS: Absolute Monocytes 0.7 K/uL (0.1-1.3); Absolute Neutrophil 3.5 K/uL (1.8-8.0); Eosinophils % 6.3 % (0-4.4); Hematocrit 32.6 % (39.6-49.0); Lymphocytes % 29.7 % (15.3-44.8); MPV 7.9 fL (7.6-11.3); Monocytes % 10.9 % (3.3-12.3); RBC Red Blood Cell Count 3.66 M/uL (4.33-5.43)
[2018-10-30 05:34] LABS: Potassium 4.7 mmol/L (3.5-5.1)
[2018-10-30 06:01] LABS: Urine Appearance CLEAR; Urine Bilirubin NEGATIVE (NEG); Urine Blood NEGATIVE (NEG); Urine Color YELLOW; Urine Glucose NEGATIVE (NEG); Urine Protein NEGATIVE (NEG); Urine Urobilinogen 0.2 mg/dL (0.2-1.0)
[2018-10-30 06:03] LABS: Urine Microscopic Reflex NO UMIC
--- NOTE | 2018-10-30 09:18 | RAD REPORT ---
EXAM DESCRIPTION: US - Renal Ultrasound-Complete - 10/29/2018 10:58 pm CLINICAL HISTORY: Acute renal insufficiency COMPARISON: None. FINDINGS: The right kidney [id number] with an increased echotexture. The left kidney measures 10 cm with an increased echotexture. Hydronephrosis is not seen. No gross abnormality of bladder is seen IMPRESSION: Increased renal echotexture consistent with parenchymal disease
[2018-10-30] MEDS: NA CHLORIDE 0.9% 1,000 ML IV SCH ×2 (11:21→20:21)
[2018-10-30] MEDS ORDERED: NITROGLYCERIN 0.4 MG/TAB SL PRN (13:55)
--- NOTE | 2018-10-30 16:10 | EKG ---
Test Date: 2018-10-29 Test Time: 19:57:07 Donor Services Coordinator: LA MEASUREMENT RESULTS: Intervals: Rate: 58 MO: 138 QRSD: 68 QT: 430 QTc: 422 [place]: P: -1 MO: 138 QRS: 9 T: 49 INTERPRETIVE STATEMENTS: sinus rhythm Otherwise normal ECG Compared to ECG 09/28/2018 08:38:52 Atrial premature complex(es) no longer present Electronically Signed On 10-30-18 16:09:11 RV TECHNICIAN by Filemon Cox
[2018-10-30] MEDS ORDERED: ENOXAPARIN 30 MG/0.3 ML SQ ONE (16:45)
--- NOTE | 2018-10-30 17:55 | RAD REPORT ---
EXAM DESCRIPTION: USCarotid Artery Wbatjmixk08/22/2018 5:32 pm CLINICAL HISTORY: Syncope COMPARISON: None FINDINGS: The velocity of the right internal carotid artery equals Add cm/sec. The right ICA/CCA rat io 1 The velocity of the left internal carotid artery equals 75 point cm/sec. The left ICA/CCA ratio 1.3 Mild plaque is present within the carotid arteries. The vertebral arteries demonstrate antegrade flow IMPRESSION: Mild plaque within the carotid arteries without evidence of a hemodynamically significan t stenosis NASCET criteria used. Mild 0-49% stenosis Moderate 50-69% stenosis Severe 70-99% stenosis
[2018-10-30] MEDS: COLLAGENASE 30 GM OINTMENT TOP SCH (18:04)
[2018-10-30] MEDS: METOPROLOL TAR 50 MG TAB PO SCH (20:22)
[2018-10-30] MEDS: DOCUSATE NA 100 MG CAP PO SCH (20:23)
[2018-10-30] MEDS: GABAPENTIN 300 MG CAP PO SCH (20:23)
[2018-10-30] MEDS ORDERED: HOME MED 1 EA UNK (Pravastatin Sodium [Pravastatin Sodium] 40 MG) PO SCH (21:00)
[2018-10-30] MEDS ORDERED: PANTOPRAZOLE 40MG TABLET PO SCH (21:00)
[2018-10-30] MEDS ORDERED: ATORVASTATIN 10 MG TAB PO SCH (21:00)
--- NOTE | 2018-10-30 21:15 | HP ---
Date of Admission: 10/29/2018 Chief Complaint: Feeling weak and dizzy. History Of Present Illness: An 88-year-old male, who has multiple problems, was [facility] because of dizziness and weakness. He had extensive workup done including CAT scan of the head, blood work, as well as ultrasound of kidneys. The patient had evidence of azotemia. The patie nt is admitted. Past Medical History: The patient is known to have recently diagnosed abscess of the back for which he had incision and drainage done. He is getting home care presently. The patient's other medical p roblems include the recent herpes zoster, history of coronary artery disease, colostomy status, hyper tension. Procedures: Included coronary angioplasty, bowel resection, colostomy. Family History: Hypertension present. Personal History: Nonsmoker. Home Medicines: Please refer to the chart. Review of Systems: No fever, chills, rigors, syncope. Physical Examination: General: Revealed an 88-year-old male. Vital Signs: Afebrile. HEENT: Negative. Neck: Supple. JVD negative. Chest: Clear. Heart: Regular. Abdomen: Colostomy functioning well. No palpable mass. Extremities: No edema. Laboratory Data: White count normal. Chem profile; BUN 33, creatinine 1.9, sodium 132. CT scan of the head, no evidence of acute CVA. Assessment: 1.Dehydration causing dizziness and weakness. 2.Known coronary artery disease. 3.Hypertension. 4.Colostomy status. Plan: IV fluids. Repeat Chem profile in a.m. ASIA/JAYNA Voice ID: [id number]
[2018-10-31] MEDS: METOPROLOL TAR 50 MG TAB PO SCH (08:08)
[2018-10-31] MEDS: COLLAGENASE 30 GM OINTMENT TOP SCH (08:08)
[2018-10-31] MEDS: DOCUSATE NA 100 MG CAP PO SCH (08:08)
[2018-10-31] MEDS: GABAPENTIN 300 MG CAP PO SCH (08:08)
[2018-10-31] MEDS ORDERED: CLOPIDOGREL 75 MG TABLET PO SCH (09:00)
[2018-10-31] MEDS ORDERED: LISINOPRIL 20 MG TAB PO SCH (09:00)
[2018-10-31 10:17] LABS: Potassium 3.9 mmol/L (3.5-5.1)
[2018-10-31] MEDS ORDERED: ENOXAPARIN 30 MG/0.3 ML SQ SCH (11:00)
[2018-10-31] MEDS: NA CHLORIDE 0.9% 1,000 ML IV SCH (13:32)
[2018-10-31 16:54] VITALS: O2SAT 97
[2018-10-31 17:26] VITALS: BP 183/71; TEMP 98.8
== END 2018-10-31 17:30 | disposition home or self-care (01) ==
LOC: ER 19:42 → ERHOLD 22:56 → 4TH 23:51
PROVIDERS: ADMIT Internal Medicine; ATTEND Internal Medicine
DX: E86.0 Dehydration (principal); R42 Dizziness and giddiness; R53.1 Weakness; I25.10 Atherosclerotic heart disease of native coronary artery without angina pectoris; I10 Essential (primary) hypertension; Z98.61 Coronary angioplasty status; Z93.3 Colostomy status
CPT/HCPCS: 36415 ×2; 70450; 71045; 76770; 80048 ×3; 80076; 81003; 83735; 83880; 84484; 85025 ×2; 85610; 87077; 87086; 87088; 87186; 93005; 93880; 96360; 96361; 99285; G0378 ×2; J1650 ×2; J7030 ×4; 81015

== ENCOUNTER 2019-06-30 11:46 | Observation (INO) | payer OTHER ==
[2019-06-30 12:25] VITALS: BMI 26.5
[2019-06-30 13:08] LABS: Basophils % 0.7 % (0-1.3); Hematocrit 39.6 % (39.6-49.0); Lymphocytes % 9.8 % (15.3-44.8); MPV 7.9 fL (7.6-11.3); RBC Red Blood Cell Count 4.54 M/uL (4.33-5.43)
[2019-06-30 13:13] LABS: Bilirubin Total 0.6 mg/dL (0.2-1.0); Potassium 4.2 mmol/L (3.5-5.1)
[2019-06-30] MEDS: NACHLORIDE 0.45% 1,000 ML IV SCH ×3 (14:28→22:03)
[2019-06-30 17:55] LABS: Urine Appearance CLOUDY; Urine Bilirubin NEGATIVE (NEG); Urine Blood NEGATIVE (NEG); Urine Color YELLOW; Urine Glucose NEGATIVE (NEG); Urine Protein 1+ (NEG); Urine Urobilinogen 0.2 mg/dL (0.2-1.0)
[2019-06-30 18:14] LABS: Urine Microscopic Reflex ORDER UMIC
[2019-06-30 18:43] LABS: Urine Bacteria <20 /HPF (NONE SEEN); Urine RBC <5 /HPF (NONE SEEN)
[2019-06-30 18:44] LABS: Urine Culture Reflex Order NOT NEEDED; Urine Mucus 3+ /HPF (NONE SEEN)
[2019-06-30] MEDS ORDERED: HOME MED 1 EA UNK (Pravastatin Sodium [Pravastatin Sodium] 40 MG) PO SCH (21:00)
[2019-06-30] MEDS: TRAMADOL HCL 50 MG TAB PO SCH (21:53)
[2019-06-30] MEDS: ATORVASTATIN 10 MG TAB PO SCH (21:54)
[2019-06-30] MEDS: GABAPENTIN 100 MG CAP PO SCH (21:54)
[2019-07-01] MEDS: NACHLORIDE 0.45% 1,000 ML IV SCH ×3 (06:23→20:05)
[2019-07-01 07:35] LABS: Potassium 3.7 mmol/L (3.5-5.1)
--- NOTE | 2019-07-01 08:53 | HP ---
Date of Admission: 06/30/2019 Chief Complaint: Diarrhea, vomiting. History Of Present Illness: 89-year-old male was brought to the office with dizziness, near syncope, 2 days of liquid stools in the colostomy bag and vomiting. The patient was examined and he was foun d to have clinical dehydration with diagnosis and symptoms related to dehydration. The patient was a dmitted for observation. The patient denied any history of chest pain, shortness of breath. Past Medical History: Includes history of coronary artery disease, COPD, hypertension, hyperlipidemi a, osteoarthritis, gastroesophageal reflux disease. Procedures And Surgeries: Include coronary stenting, colostomy, appendectomy, revision of colostomy. Family History: Hypertension, diabetes present. Personal History: No known allergies. Home Medicines: Please refer to the chart. Review of Systems: The patient denied any fever, chills, rigors. Physical Examination: GENERAL: Revealed 89-year-old male. VITAL SIGNS: Blood pressure was 108/80 in the office with postural drop. HEENT: Negative. NECK: Supple. JVD negative. CHEST: Few scattered wheezes. HEART: Regular. ABDOMEN: Colostomy bag filled with liquid stools. Bowel sounds present. EXTREMITIES: No edema. Laboratory Data: Laboratory done after admission: White count was normal. Chem profile with BUN 32 , creatinine 2.5. The last admission, BUN and creatinine were normal. Assessment: 1.Gastroenteritis. 2.Dehydration. 3.Acute renal failure secondary to dehydration. 4.Hypertension. 5.Colostomy status. 6.History of hyperlipidemia. 7.History of osteoarthritis. Plan: The patient has been receiving IV fluids. He is started on clear liquids to see whether he wo uld tolerate his kidney function, looks better today. The creatinine has come down to 1.75; however, BUN is still high. The patient will be reassessed. ASIA/JAYNA Voice ID: [id number]
[2019-07-01] MEDS: GABAPENTIN 100 MG CAP PO SCH ×2 (09:25→20:03)
[2019-07-01] MEDS: TRAMADOL HCL 50 MG TAB PO SCH ×2 (09:25→20:03)
[2019-07-01] MEDS: CLOPIDOGREL 75 MG TABLET PO SCH (09:27)
[2019-07-01] MEDS: ATORVASTATIN 10 MG TAB PO SCH (20:03)
[2019-07-02] MEDS: NACHLORIDE 0.45% 1,000 ML IV SCH ×2 (03:57→12:24)
[2019-07-02 06:05] LABS: Potassium 3.8 mmol/L (3.5-5.1)
[2019-07-02 07:59] VITALS: O2SAT 95
[2019-07-02] MEDS: GABAPENTIN 100 MG CAP PO SCH (07:59)
[2019-07-02] MEDS: CLOPIDOGREL 75 MG TABLET PO SCH (07:59)
[2019-07-02] MEDS: TRAMADOL HCL 50 MG TAB PO SCH (08:00)
[2019-07-02 13:02] VITALS: BP 142/64; TEMP 97.8
== END 2019-07-02 12:34 | disposition home or self-care (01) ==
LOC: 2ND 12:01
PROVIDERS: ADMIT Internal Medicine; ATTEND Internal Medicine
DX: K52.9 Noninfective gastroenteritis and colitis, unspecified (principal); N17.9 Acute kidney failure, unspecified; E86.0 Dehydration; I25.10 Atherosclerotic heart disease of native coronary artery without angina pectoris; I10 Essential (primary) hypertension; E78.5 Hyperlipidemia, unspecified; J44.9 Chronic obstructive pulmonary disease, unspecified; K21.9 Gastro-esophageal reflux disease without esophagitis; Z93.3 Colostomy status
CPT/HCPCS: 87045; 85025; 80048 ×2; 36415 ×2; 87046; 83690; 80053; G0379; G0378; 81003; 81015

== ENCOUNTER 2020-01-17 15:30 | Emergency (ER) | payer OTHER ==
[2020-01-17 16:18] LABS: Absolute Lymphocytes (CBC) 1.7 K/uL (0.7-4.9); Basophils % 1.1 % (0-1.3); Hematocrit 34.9 % (39.6-49.0); Lymphocytes % 28.3 % (15.3-44.8); MPV 7.8 fL (7.6-11.3)
[2020-01-17 16:24] LABS: Protime INR 0.98
--- NOTE | 2020-01-17 16:28 | RAD REPORT ---
EXAM DESCRIPTION: CT - Head Brain Wo Cont - 01/17/2020 4:13 pm CLINICAL HISTORY: Dizziness;Weakness Headache, drowsiness COMPARISON: Head Brain Wo Cont dated 10/29/2018 TECHNIQUE: All CT scans are performed using dose optimization technique as appropriate and may inclu de automated exposure control or mA/KV adjustment according to patient size. FINDINGS: No intracranial hemorrhage, hydrocephalus or extra-axial fluid collection.Moderate general ized brain atrophy is present with moderate periventricular and deep white matter chronic microvascul ar ischemic changes.No areas of brain edema or evidence of midline shift. Moderate polypoid mucosal thickening involves the left maxillary antrum. The paranasal sinuses and ma stoids are otherwise clear. The calvarium is intact. IMPRESSION: No acute intracranial abnormality.
--- NOTE | 2020-01-17 16:29 | RAD REPORT ---
EXAM DESCRIPTION: RAD - Chest Single View - 01/17/2020 4:21 pm CLINICAL HISTORY: dizziness, weakness Chest pain. COMPARISON: Chest Pa And Lat (2 Views) dated 01/06/2020; Chest Single View dated 10/29/2018; Chest Si ngle View dated 09/28/2018; Chest Single View dated 09/26/2018 FINDINGS: Portable technique limits examination quality. 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 Trace bilateral pleural fluid. The heart is u pper limit of normal in size. IMPRESSION: No acute intrathoracic process suspected.
[2020-01-17 17:00] LABS: ALT/SGPT 17 U/L (12-78); AST/SGOT 20 U/L (15-37); Albumin 3.4 g/dL (3.4-5.0); Alkaline Phosphatase 84 U/L (45-117); BUN Blood Urea Nitrogen 17 mg/dL (7-18); Bicarbonate 27 mmol/L (21-32); Bilirubin Direct 0.1 mg/dL (0-0.2); Bilirubin Total 0.5 mg/dL (0.2-1.0); Glucose Level 104 mg/dL (74-106); Magnesium 2.3 mg/dL (1.8-2.4); NT PRO-BNP 409 pg/mL (<450); Potassium 4.1 mmol/L (3.5-5.1); Protein, Total 6.9 g/dL (6.4-8.2); Sodium Level 139 mmol/L (136-145); Troponin (Emerg Dept Use Only) < 0.02 ng/mL (0.0-0.045)
[2020-01-17] MEDS ORDERED: NA CHLORIDE 0.9% 500 ML ONE (17:46)
[2020-01-17 19:58] LABS: Urine Bacteria <20 /HPF (NONE SEEN); Urine Culture Reflex Order NOT NEEDED; Urine RBC <5 /HPF (NONE SEEN)
--- NOTE | 2020-01-17 20:21 | EDPHYS ---
Physician Documentation [facility] Name: Ruchi Rivers Age: 89 yrs Sex: Male : 1930 Arrival Date: 01/17/2020 Time: 15:34 Bed 8 Private MD: ED Physician Darren Ayala HPI: 01/16 16:08 This 89 yrs old Male presents to ER via Ambulatory with complaints of Blood cp Pressure Problem, Dizziness, General Weakness. 16:08 The patient's problem is reported as weakness, that is generalized, dizziness. Onset: cp The symptoms/episode began/occurred yesterday. Duration: the symptoms became worse today. Associated signs and symptoms: Pertinent negatives: abdominal pain, chest pain, diarrhea, headache, vomiting. Severity of symptoms: in the emergency department the symptoms are unchanged despite home interventions. Patient's baseline: Neuro: alert and fully oriented, Motor: no deficits, Ambulation: walks without assistance, Speech: normal. Historical: - Allergies: 15:54 No Known Allergies; ss - PMHx: 15:54 cardiac stent; Hypertension; Hyperlipidemia; Diverticulitis; shingles; ss - PSHx: 15:54 Heart stents; bowel resection with colostomy; ss - Immunization history:: Adult Immunizations up to date. - Social history:: Smoking status: Patient denies any tobacco usage or history of. ROS: 16:15 Eyes: Negative for injury, pain, redness, and discharge. cp 16:15 Constitutional: Positive for fatigue, Negative for body aches, chills, fever, poor PO intake. 16:15 ENT: Negative for drainage from ear(s), ear pain, sore throat, difficulty swallowing, difficulty handling secretions. 16:15 Cardiovascular: Negative for chest pain, edema, palpitations. 16:15 Respiratory: Negative for cough, shortness of breath, wheezing. 16:15 Abdomen/GI: Negative for abdominal pain, nausea, vomiting, and diarrhea, anorexia, black/tarry stool. 16:15 Back: Negative for pain at rest, pain with movement. 16:15 Skin: Negative for cellulitis, rash. 16:15 Neuro: Positive for dizziness, weakness, Negative for altered mental status, headache, syncope. 16:15 All other systems are negative. Exam: 15:47 ECG was reviewed by the Attending Physician. cp 16:20 Constitutional: The patient appears in no acute distress, alert, awake, comfortable, cp non-diaphoretic, non-toxic, well developed, well nourished. 16:20 Head/Face: Normocephalic, atraumatic. cp 16:20 Eyes: Pupils equal round and reactive to light, extra-ocular motions intact. Lids and lashes normal. Conjunctiva and sclera are non-icteric and not injected. Cornea within normal limits. Periorbital areas with no swelling, redness, or edema. ENT: Nares patent. No nasal discharge, no septal abnormalities noted. Tympanic membranes are normal and external auditory canals are clear. Oropharynx with no redness, swelling, or masses, exudates, or evidence of obstruction, uvula midline. Mucous membranes moist. Neck: Trachea midline, no thyromegaly or masses palpated, and no cervical lymphadenopathy. Supple, full range of motion without nuchal rigidity, or vertebral point tenderness. No Meningismus. Chest/axilla: Normal chest wall appearance and motion. Nontender with no deformity. No lesions are appreciated. 16:20 Cardiovascular: Rate: normal, Rhythm: regular, Edema: is not appreciated, JVD: is not appreciated. 16:20 Respiratory: the patient does not display signs of respiratory distress, Respirations: normal, no use of accessory muscles, no retractions, labored breathing, is not present, Breath sounds: are clear throughout, no decreased breath sounds, no stridor, no wheezing. 16:20 Abdomen/GI: Inspection: distension, is not seen, colostomy noted LLQ, Bowel sounds: active, all quadrants, Palpation: soft, in all quadrants, nontender, in all quadrants, rebound tenderness, is not appreciated, voluntary guarding, is not appreciated, involuntary guarding, is not appreciated. 16:20 Back: pain, is absent, ROM is normal. 16:20 Skin: no rash present. 16:20 Neuro: Orientation: to person, place \T\ time. Mentation: is normal, Cerebellar function: Romberg testing is negative, normal finger to nose testing, heel to thompson testing is normal, Motor: moves all fours, strength is normal, Sensation: no obvious gross deficits. 17:00 Radiologist reports: no acute findings cp Vital Signs: 15:50 BP 158 / 92; Pulse 69; Resp 18; Temp 98.5(TE); Pulse Ox 98% on R/A; Weight 76.2 kg; ss Height 5 ft. 5 in. (165.10 cm); Pain 0/10; 16:46 BP 162 / 67 Supine; Pulse 59; jb1 16:46 BP 174 / 73 Sitting; Pulse 60; jb1 16:46 BP 175 / 71 Standing; Pulse 64; jb1 17:30 BP 145 / 68; Pulse 57; Resp 16; Pulse Ox 98% ; sv 18:06 BP 197 / 80; Pulse 62; Resp 16; Pulse Ox 99% ; sv 18:30 BP 209 / 84; Pulse 59; Resp 17; Pulse Ox 98% ; sv 19:50 BP 187 / 77; Pulse 56; Resp 20; Pulse Ox 99% on R/A; Pain 0/10; lw1 20:30 BP 187 / 60; Pulse 58; Resp 20; Pulse Ox 98% on R/A; lw1 15:50 Body Mass Index 27.96 (76.20 kg, 165.10 cm) ss MDM: 15:50 Patient medically screened. [facility] 16:00 Differential diagnosis: CVA, metabolic disorder, dehydration, vertigo, UTI. 20:20 Data reviewed: vital signs, nurses notes, lab test result(s), EKG, radiologic studies, cp CT scan, plain films, and as a result, I will discharge patient. 20:20 Counseling: I had a detailed discussion with the patient and/or guardian regarding: the cp historical points, exam findings, and any diagnostic results supporting the discharge/admit diagnosis, lab results, radiology results, the need for outpatient follow up, an staff development educator, to return to the emergency department if symptoms worsen or persist or if there are any questions or concerns that arise at home. Response to treatment: the patient's symptoms have mildly improved after treatment. 01/16 15:58 Order name: Basic Metabolic Panel; Complete Time: 17:05 cp 01/16 17:05 Interpretation: Normal except: GFR 54; CA 8.3. cp 01/16 15:58 Order name: CBC with Diff; Complete Time: 16:59 cp 01/16 16:59 Interpretation: Normal except: RBC 4.00; HGB 11.9; HCT 34.9. cp 01/16 15:58 Order name: LFT's; Complete Time: 17:05 cp 01/16 17:05 Interpretation: Normal except: A/G 1.0. cp 01/16 15:58 Order name: Magnesium; Complete Time: 17:06 cp 01/16 15:58 Order name: NT PRO-BNP; Complete Time: 17:06 cp 01/16 15:58 Order name: PT-INR; Complete Time: 16:59 cp 01/16 15:45 Order name: Orthostatics; Complete Time: 16:47 cp 01/16 15:58 Order name: Troponin (emerg Dept Use Only); Complete Time: 17:05 cp 01/16 17:05 Interpretation: Within normal limits: TROPED < 0.02. cp 01/16 15:58 Order name: XRAY Chest (1 view); Complete Time: 16:59 cp 01/16 17:05 Interpretation: Report review. cp 01/16 15:58 Order name: EKG; Complete Time: 15:59 cp 01/16 15:58 Order name: CT Head Brain wo Cont; Complete Time: 16:59 cp 01/16 17:07 Interpretation: Report reviewed. cp 01/16 15:58 Order name: Urine Microscopic Only; Complete Time: 20:11 cp 01/16 19:54 Order name: Urine Dipstick--Ancillary (enter results) ar5 01/16 15:58 Order name: Cardiac monitoring; Complete Time: 15:59 cp 01/16 15:58 Order name: EKG - Nurse/Tech; Complete Time: 15:59 cp 01/16 15:58 Order name: IV Saline Lock; Complete Time: 16:12 cp 01/16 15:58 Order name: Labs collected and sent; Complete Time: 16:12 cp 01/16 15:58 Order name: O2 Per Protocol; Complete Time: 15:59 cp 01/16 15:58 Order name: O2 Sat Monitoring; Complete Time: 15:59 cp 01/16 15:58 Order name: Urine Dipstick-Ancillary (obtain specimen); Complete Time: 19:46 cp 01/16 18:07 Order name: Misc. Order: ambulate patient please; Complete Time: 20:49 cp EC:47 Rate is 71 beats/min. Rhythm is regular. IL interval is normal. QRS interval is normal. cp QT interval is normal. Interpreted by me. Reviewed by me. Administered Medications: 17:45 Drug: NS 0.9% 500 ml Route: IV; Rate: 500 ml/hr; Site: right antecubital; em 20:30 Follow up: Response: No adverse reaction; IV Status: Completed infusion; IV Intake: ea 500ml Disposition: 01/17 12:43 Co-signature as Attending Physician, Darren Ayala MD I agree with the assessment and jose plan of care. Disposition: 01/17/20 20:20 Discharged to Home. Impression: Weakness - general, Dizziness and giddiness, Hypertensive heart disease. - Condition is Stable. - Discharge Instructions: Dizziness, Hypertension, Weakness, How to Take Your Blood Pressure, Glsc-as-Gwtx, Aspirin and Your Heart, Managing Your Hypertension. - Medication Reconciliation Form, Thank You Letter, Antibiotic Education, Prescription Opioid Use form. - Follow up: Zack Gross MD; When: 1 - 2 days; Reason: Recheck today's complaints. - Problem is new. - Symptoms have improved. Signatures: Dispatcher [employer] Darren Rodriguez MD MD cha Munoz, Edgar RN Marcia Agee RN RN Darren Mccoy PA PA cp Antunez, Elena, RN RN ea Corrections: (The following items were deleted from the chart) 01/16 17:05 17:04 Normal except: GFR 54. cp cp 20:57 20:20 01/17/2020 20:20 Discharged to Home. Impression: Weakness - general; Dizziness ea and giddiness; Hypertensive heart disease. Condition is Stable. Forms are Medication Reconciliation Form, Thank You Letter, Antibiotic Education, Prescription Opioid Use. Follow up: Zack Gross; When: 1 - 2 days; Reason: Recheck today's complaints. Problem is new. Symptoms have improved. cp
--- NOTE | 2020-01-17 20:21 | ER ---
Nurse's Notes [facility] Name: Ruchi Rivers Age: 89 yrs Sex: Male : 1930 Arrival Date: 01/17/2020 Time: 15:34 Bed 8 Private MD: Diagnosis: Weakness-general;Dizziness and giddiness;Hypertensive heart disease Presentation: 01/16 15:50 Chief complaint: Patient states: fatigue and dizziness that began yesterday. Daughter ss is concerned because she believes his abd hernia has worsened. Coronavirus screen: The patient has NOT traveled to a country currently being monitored by the [facility] within the last 14 days. Proceed with normal triage procedures. Ebola Screen: Patient denies exposure to infectious person. Patient denies travel to an Ebola-affected area in the 21 days before illness onset. Initial Sepsis Screen: Does the patient meet any 2 criteria? No. Patient's initial sepsis screen is negative. Does the patient have a suspected source of infection? No. Patient's initial sepsis screen is negative. Risk Assessment: Do you want to hurt yourself or someone else? Patient reports no desire to harm self or others. 15:50 Method Of Arrival: Ambulatory 15:50 Acuity: VIRGILIO 3 ss Historical: - Allergies: 15:54 No Known Allergies; ss - PMHx: 15:54 cardiac stent; Hypertension; Hyperlipidemia; Diverticulitis; shingles; ss - PSHx: 15:54 Heart stents; bowel resection with colostomy; ss - Immunization history:: Adult Immunizations up to date. - Social history:: Smoking status: Patient denies any tobacco usage or history of. Screenin:56 Abuse screen: Denies threats or abuse. Nutritional screening: No deficits noted. em Tuberculosis screening: No symptoms or risk factors identified. Fall Risk None identified. Assessment: 15:59 General: Appears in no apparent distress. comfortable, Behavior is calm, cooperative, em Denies fever. Pain: Denies pain. Neuro: Level of Consciousness is awake, alert, obeys commands, Oriented to person, place, time, situation, Appropriate for age Literary Agent are equal bilaterally Moves all extremities. Gait is steady, Speech is normal, Reports dizziness. Cardiovascular: Heart tones S1 S2 present Capillary refill < 3 seconds Patient's skin is warm and dry. Rhythm is sinus rhythm. Respiratory: Reports shortness of breath on exertion Airway is patent Respiratory effort is even, unlabored, Respiratory pattern is regular, symmetrical, Denies cough. GI: Abdomen is flat, Colostomy site is clean and dry. is reddened. Ostomy appliance is intact. Bowel sounds present X 4 quads. Abd is soft and non tender X 4 quads. Patient currently denies nausea, vomiting. Derm: Skin is intact, is healthy with good turgor, Skin is pink, warm \T\ dry. Musculoskeletal: Capillary refill < 3 seconds, Range of motion: intact in all extremities. 17:14 Reassessment: Patient appears in no apparent distress at this time. Patient and/or em family updated on plan of care and expected duration. Pain level reassessed. Patient is alert, oriented x 3, equal unlabored respirations, skin warm/dry/pink. Patient states feeling better. Patient states symptoms have improved. 18:30 Reassessment: Patient appears in no apparent distress at this time. Patient and/or em family updated on plan of care and expected duration. Pain level reassessed. Patient is alert, oriented x 3, equal unlabored respirations, skin warm/dry/pink. 20:56 Reassessment: Patient and/or family updated on plan of care and expected duration. Pain ea level reassessed. Patient is alert, oriented x 3, equal unlabored respirations, skin warm/dry/pink. Discharge instruction given to patient and family, verbalized the understanding of instruction. Pt left ED ambulatory accompanied by son, pt tolerating well. Vital Signs: 15:50 BP 158 / 92; Pulse 69; Resp 18; Temp 98.5(TE); Pulse Ox 98% on R/A; Weight 76.2 kg; ss Height 5 ft. 5 in. (165.10 cm); Pain 0/10; 16:46 BP 162 / 67 Supine; Pulse 59; jb1 16:46 BP 174 / 73 Sitting; Pulse 60; jb1 16:46 BP 175 / 71 Standing; Pulse 64; jb1 17:30 BP 145 / 68; Pulse 57; Resp 16; Pulse Ox 98% ; sv 18:06 BP 197 / 80; Pulse 62; Resp 16; Pulse Ox 99% ; sv 18:30 BP 209 / 84; Pulse 59; Resp 17; Pulse Ox 98% ; sv 19:50 BP 187 / 77; Pulse 56; Resp 20; Pulse Ox 99% on R/A; Pain 0/10; lw1 20:30 BP 187 / 60; Pulse 58; Resp 20; Pulse Ox 98% on R/A; lw1 15:50 Body Mass Index 27.96 (76.20 kg, 165.10 cm) ED Course: 15:34 Patient arrived in ED. fj1 15:39 Mateo Suggs, RN is Primary Nurse. em 15:45 Darren Mccyo PA is PHCP. cp 15:45 Darren Ayala MD is Attending Physician. cp 15:50 EKG done, by chief ophthalmic technician. reviewed by Darren GARDNER. at1 15:53 Triage completed. ss 15:54 Arm band placed on right wrist. ss 15:56 Patient has correct armband on for positive identification. Placed in gown. Bed in low em position. Call light in reach. Side rails up X2. Adult w/ patient. Pulse ox on. NIBP on. 16:11 Initial lab(s) drawn, by mt, sent to lab. Inserted saline lock: 22 gauge in right jb1 antecubital area, using aseptic technique. Blood collected. 16:24 XRAY Chest (1 view) In Process Unspecified. EDMS 16:24 CT Head Brain wo Cont In Process Unspecified. EDMS 19:47 Urine Microscopic Only Sent. lw1 20:19 Zack rGoss MD is Referral Physician. cp 20:38 Primary Nurse role handed off by Mateo Sugsg, MICKEY lw1 20:38 Traci Silva, RN is Primary Nurse. lw1 20:52 No provider procedures requiring assistance completed. IV discontinued, bleeding lw1 controlled, No redness/swelling at site. Pressure dressing applied. Administered Medications: 17:45 Drug: NS 0.9% 500 ml Route: IV; Rate: 500 ml/hr; Site: right antecubital; em 20:30 Follow up: Response: No adverse reaction; IV Status: Completed infusion; IV Intake: ea 500ml Intake: 20:30 IV: 500ml; Total: 500ml. ea Outcome: 20:20 Discharge ordered by . cp 20:53 Discharged to home via wheelchair, with family. lw1 20:53 Condition: improved 20:53 Discharge instructions given to patient, family, Instructed on discharge instructions, follow up and referral plans. medication usage, Demonstrated understanding of instructions, medications. 20:57 Patient left the ED. ea Signatures: Dispatcher [employer] EDAntony Palomo jb1 Shante Edward, RN RN Mateo Larsen, RN RN Marcia Renae RN RN ss Kenyatta Bacon, street cleaner EKG Tat1 Darren Mccoy PA PA cp Antunez, Elena, RN RN ea James, Frank fj1 Traci Silva RN RN lw1
[2020-01-17 20:42] LABS: Urine Blood NEGATIVE (NEG); Urine Glucose NEGATIVE (NEG); Urine Protein NEGATIVE (NEG); Urine Specific Gravity 1.025 (1.005-1.030); Urine pH 5.5 (5.0-7.0)
[2020-01-17 22:00] VITALS: TEMP 98.5
[2020-01-17 22:12] VITALS: BP 187/60; O2SAT 98
--- NOTE | 2020-01-18 09:27 | EKG ---
Test Date: 2020-01-17 Test Time: 15:46:46 Mascara Molder: WONG MEASUREMENT RESULTS: Intervals: Rate: 71 OR: 190 QRSD: 72 QT: 400 QTc: 434 Mary D: P: 40 OR: 190 QRS: 37 T: 64 INTERPRETIVE STATEMENTS: Normal sinus rhythm Normal ECG Compared to ECG 10/29/2018 19:57:07 No significant changes Electronically Signed On 01-18-20 09:27:00 CDT by Marvel Hart
== END 2020-01-17 20:57 | disposition home or self-care (01) ==
LOC: ER 15:30
DX: I11.9 Hypertensive heart disease without heart failure (principal); R53.1 Weakness; Z95.5 Presence of coronary angioplasty implant and graft
CPT/HCPCS: 96361; 93005; 85025; 80048; 36415; 83735; 85610; 80076; 84484; 83880; 70450; 71045; 96360; 99285; J7040; 81003; 81015

== ENCOUNTER 2020-08-21 15:50 | Emergency (ER) | payer OTHER ==
--- OUTSIDE RECORDS SUMMARY | 2020-08-21 16:02 | XMS REPORT | Clinical Summary ---
:1930 Author Organization [facility] Address [address] [place] [address] Care Team Providers Name Role Phone Zack Johnson MD Primary Care Provider Allergies No Known Active Allergies Medications Medication Sig Dispensed Refills Start Date End Date Status lisinopril Take 20 mg by 0 Activ e (PRINIVIL,ZESTRIL) mouth every 20 mg tablet morning. clopidogrel (PLAVIX) Take 75 mg by 0 Active 75 mg tablet mouth daily. pravastatin Take 40 mg by 0 Acti ve (PRAVACHOL) 40 MG mouth tablet nightly. pantoprazole Take 40 mg by 0 Act jb (PROTONIX) 40 MG EC mouth every tablet morning. metoprolol tartrate Take 50 mg by 0 Active (LOPRESSOR) 50 mg mouth 2 (two) tablet times a day. fexofenadine Take 180 mg 0 Activ e (MARINA) 180 MG by mouth tablet every morning. albuterol (PROAIR Inhale 2 0 Ac tive HFA,PROVENTIL puffs every 6 HFA,VENTOLIN HFA) 90 (six) hours mcg/actuation as needed for inhaler wheezing. traMADoL (ULTRAM) 50 Take 50 mg by 0 Active mg mouth every 4 tabletIndications: (four) hours acute pain as needed for moderate pain .acute pain. diphenhydrAMINE Take 25 mg by 0 Active (BENADRYL) 25 mg mouth daily tablet as needed for sleep. amLODIPine (NORVASC) Take 5 mg by 0 Active 5 mg tablet mouth every morning. gabapentin Take 100 mg 0 Active (NEURONTIN) 100 mg by mouth 2 capsule (two) times a day. aspirin (ECOTRIN) 81 Take 81 mg by 0 04/05 Discontinued MG enteric coated mouth daily. 20 (Med List tablet Cleanup) amoxicillin-pot Take 1 tablet 14 tablet 0 04/07/2020 04/14/20 clavulanate by mouth 2 20 (Augmentin) 875-125 (two) times a mg per tablet day for 7 days. azithromycin Take 1 tablet 6 tablet 0 04/07/2020 04/12/20 Ex pired (Zithromax) 250 MG (250 mg 20 tabletIndications: total) by Pneumonia of right mouth daily lower lobe due to for 5 days. infectious organism Take 2 tablets the first day, then 1 tablet daily for 4 days. 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 Acute cystitis without hematuria 03/02/2018 Moderate protein-calorie malnutrition 03/02/2018 Rectal mass 03/02/2018 Encounters Date Type Specialty Care Team Description 04/11/2020 Patient Outreach Quality Carmen Garcia MA 04/11/2020 Patient Outreach Quality Brigitte Milligan, MICKEY 04/09/2020 Patient Outreach Quality Brigitte Milligan RN 04/05/2020 - Hospital Encounter Nephrology [place] Younger Pneumo edward of right lower lobe due to infectious organism (HCC) (Primary Dx); 04/07/2020 BKala, Stage 2 chronic kidney disease; Solitario Garcia, Lactic acido sis; Ventral hernia without obstruction or gangrene; Ileus (HCC) 09/08/2019 Office Visit General Surgery Alireza Johnson Parastomal h inez Salas MD without obst ruction or gangrene (Pr imary Dx) after 08/21/2019 Surgical History Surgery Date Site/Laterality Comments SHOULDER SURGERY Left rotator cuff re pair RESECTION, COLON, 03/02/2018 Abdomen/N/A Procedure: JOSE OTIC LAPAROSCOPIC, ASSISTED LAPAROS COPIC LOW ROBOT-ASSISTED ANTERIOR COLON R ESECTION WITH END COLOSTO MY; Surgeon: Moise Gomez MD; Locat [facility]; Servgilmer e: Colon and Rectal Surge ry; Laterality: N/A; Medical devices from this surgery are in t he Implants section . JOINT REPLACEMENT 11/09/1987 - Right Knee Replaceme nt 11/08/1988 CARDIAC SURGERY 11/09/2012 - Stent 11/08/2013 HERNIA REPAIR 1970s ?? does not know what (per patient he thinks it is on the groin) APPENDECTOMY 1970s COLECTOMY, RIGHT, 02/18/2019 Abdomen/N/A Procedure: JOSE OTIC LAPAROSCOPIC, ASSISTED LAPAROS COPIC ROBOT-ASSISTED PARASTOMAL , SAMMY IS OF ADHESIONS, HERNI A REPAIR WITH MESH; Surg snehal: Alireza Johnson MD; Location: [facility]; Service: Co phillip and Rectal Surgery; Laterality: N/A; Medical devices from this surgery are in t he Implants section . Medical History Medical History Date Comments Hemorrhoids had surgery Hypertension Hyperlipidemia Snoring sometimes, had sleep study, negative for sleep apnea Wears dentures uppers and lowers Anesthesia NHAP/NFHAP Does not exercise unable to climb two flights of stairs w/out stopping due to knee pain, some sob /no chest pain on two [facility] Asthma triggered by allergi es - no hospital admission, albuterol as needed Acid reflux diet related, under contol with meds, CAD (coronary artery disease) stents x1 Arthritis oste- knees, right h and, fingers Glaucoma Rx for eye drops ran out 6 months ago, advised to see eye doctor manda History of transfusion 2018 during colon rese ction and colostomy "daughter not sure if it was cance r" Wound of back mid-lower back ,appr oximately 2 inches,reddened with dressing(per harini schneider's daughter,it was from an old abscess.Patie nt had wound vac before on the site and they apply antibiotic ointment on the wound) Family History Relation Name Status Comments Father Mother Social History Tobacco Use Types Packs/Day Years Used Date Former Smoker 2 40 Quit: 03/02/20 03 Smokeless Tobacco: Never Used Alcohol Use Drinks/Week oz/Week Comments No quit 15 years ag o Alcohol Habits Answer Date Recorded How often do you have a drink containing alcohol? Never 02/09/2019 How many drinks containing alcohol do you have on a typical Not asked day when you are drinking? How often do you have six or more drinks on one occasion? No t asked Sex Assigned at Date Recorded Not on file Last Filed Vital Signs Vital Sign Reading Time Taken Comments Blood Pressure 118/58 04/07/2020 11:39 AM CDT Pulse 52 04/07/2020 11:39 AM CDT Temperature 35.7 C (96.3 F) 04/07/2020 11:39 AM CDT Respiratory Rate 18 04/07/2020 11:39 AM CDT Oxygen Saturation 98% 04/07/2020 11:39 AM CDT Inhaled Oxygen Concentration - - Weight 75.8 kg (167 lb) 04/05/2020 8:22 PM CDT Height 165.1 cm (5' 5") 04/05/2020 8:22 PM CDT Body Mass Index 27.79 04/05/2020 8:22 PM CDT Plan of Treatment Health Maintenance Due Date Last Done Comments SHINGLES VACCINES (#1) 1981 65+ PNEUMOCOCCAL VACCINE (1 of 1 - PPSV23) 1996 INFLUENZA VACCINE 06/09/2020 Implants Implanted Type Area Resident Service Coordinator Device Shelf Model / Identifier Expiration Serial / Date Lot Matrix Surgcl Matristem [id number] Thk Strl - [id number] Human Tiss ue N/A: N/A [employer] 11/08/2020 [id number] / Implanted: Qty: 1 on 02/18/2019 by Alireza Johnson MD at [facility] Implants / [id number] Drain Wnd Chnl 19fr n Rnd Hbls Fl-Flut W/ n Tr ocar - [id number] Surgical N/A: N/A [employer] OF 2230 / Implanted: 03/02/2018 at [facility] (Quantity not on file) Imp lants; JOEY & / Expanders; JOEY Extenders; Surgical Wires Device Fxtn Absrbl Strp 5mm Securestrap - [id number] Surgical N/A: N/A [employer] OF 01/07/2020 [id number] / Implanted: Qty: 1 on 02/18/2019 by Alireza Johnson MD at [facility] Implants; JOEY & / Expanders; JOEY [id number] Extenders; Surgical Wires Procedures Procedure Name Priority Date/Time Associated Comments Diagnosis ESTIMATED GFR Routine 04/07/2020 5:10 Results fo r this AM CDT procedure are i n the results section. BASIC METABOLIC PANEL Routine 04/07/2020 5:10 Re sults for this AM CDT procedure are i n the results section. HC COMPLETE BLD COUNT Routine 04/07/2020 5:10 Re sults for this W/AUTO DIFF AM CDT procedure are i n the results section. ESTIMATED GFR Routine 04/06/2020 4:30 Results fo r this AM CDT procedure are i n the results section. HC COMPLETE BLD COUNT Routine 04/06/2020 4:30 Re sults for this W/AUTO DIFF AM CDT procedure are i n the results section. BASIC METABOLIC PANEL Routine 04/06/2020 4:30 Re sults for this AM CDT procedure are i n the results section. LACTIC ACID LEVEL, Timed 04/05/2020 7:23 Resul ts for this SEPSIS - NOW AND PM CDT procedure a re in REPEAT 2X EVERY 3 the result s HOURS section. LACTIC ACID LEVEL, Timed 04/05/2020 4:30 Resul ts for this SEPSIS - NOW AND PM CDT procedure a re in REPEAT 2X EVERY 3 the result s HOURS section. URINALYSIS SCREEN AND STAT 04/05/2020 4:30 Re sults for this MICROSCOPY, WITH PM CDT procedure a re in REFLEX TO CULTURE the result s section. URINE CULTURE STAT 04/05/2020 4:30 Results fo r this PM CDT procedure are i n the results section. BLOOD CULTURE, AEROBIC Routine 04/05/2020 4:30 R esults for this & ANAEROBIC PM CDT procedure are i n the results section. BLOOD CULTURE, AEROBIC Routine 04/05/2020 4:09 R esults for this & ANAEROBIC PM CDT procedure are i n the results section. CT ABDOMEN PELVIS WO STAT 04/05/2020 3:01 Res ults for this CONTRAST PM CDT procedure are i n the results section. ESTIMATED GFR STAT 04/05/2020 1:22 Results fo r this PM CDT procedure are i n the results section. LACTIC ACID LEVEL, STAT 04/05/2020 1:22 Resul ts for this SEPSIS - NOW AND PM CDT procedure a re in REPEAT 2X EVERY 3 the result s HOURS section. LIPASE LEVEL STAT 04/05/2020 1:22 Results for this PM CDT procedure are i n the results section. COMPREHENSIVE STAT 04/05/2020 1:22 Results fo r this METABOLIC PANEL PM CDT procedure ar e in the results section. HC COMPLETE BLD COUNT STAT 04/05/2020 1:22 Re sults for this W/AUTO DIFF PM CDT procedure are i n the results section. after 08/21/2019 Results Estimated GFR (04/07/2020 5:10 AM CDT)Only the most recent of3 resultswithin the time period is included. Estimated GFR 43 (A) mL/min/1.73 [facility] Comment: m2 HOSPITAL Catergory Units Interpretation G1 >=90 Normal or high G2 60-89 Mildly decreased G3a 45-59 Mildly to moderately decreas ed G3b 30-44 Moderately to severely decre ased G4 15-29 Severely decreased G5 <15 Kidney failure The eGFR was calculated using the Chronic Kidney Disea se Epidemiology Collaboration (CKD-EPI) equation. Interpretation is based on recommendations of the National Kidney Foundation-Kidney Disease Outcomes Dylan lity Initiative (NKF-KDOQI) published in 2014. Specimen Performing Organization Address City/State/ZIP Code Phon e Number [facility] DEPARTMENT OF PATHOLOGY AND [address], [place] [address] GENOMIC MEDICINE [facility] [address] [place] [address] CBC with platelet and differential (04/07/2020 5:10 AM CDT)Only the most recent of3 resultswithin the time period is included. Pathologist [facility] WBC 5.64 4.50 - 11.00 [facility] k/uL HOSPITAL RBC 3.95 (L) 4.40 - 6.00 [facility] m/[facility] HGB 11.5 (L) 14.0 - 18.0 [facility]/dL [facility] HCT 34.9 (L) 41.0 - 51.0 % [facility] MCV 88.4 82.0 - 100.0 [facility] MCH 29.1 27.0 - 34.0 pg [facility] MCHC 33.0 31.0 - 37.0 [facility] RDW - SD 43.9 37.0 - 55.0 fL [facility] MPV 10.2 8.8 - 13.2 [facility] Platelet count 249 150 - 400 k/uL [facility] Nucleated RBC 0.00 /100 WBC [facility] Neutrophils 57.8 39.0 - 69.0 % [facility] Lymphocytes 17.2 (L) 25.0 - 45.0 % [facility] Monocytes 16.7 (H) 0.0 - 10.0 % [facility] Eosinophils 6.9 (H) 0.0 - 5.0 % [facility] Basophils 0.7 0.0 - 1.0 % [facility] Immature granulocytes 0.7Comment: 0.0 - 1.0 % [facility] "Immature HOSPITAL granulocytes" (promyelocytes , myelocytes, metamyelocytes ) Specimen Blood Performing Organization Address City/[facility] Phon e Number [facility] DEPARTMENT OF PATHOLOGY AND [address] [place] [address] [phone] [address] Basic metabolic panel (04/07/2020 5:10 AM CDT)Only the most recent of2 results within the time period is included. Pathologist Sig nature Sodium 137 135 - 148 mEq/L [facility] Potassium 3.9 3.5 - 5.0 mEq/L [facility] Chloride 103 98 - 112 mEq/L [facility] CO2 22 (L) 24 - 31 mEq/L [facility] Anion gap 12@ANIO 7 - 15 mEq/L [facility] BUN 12 8 - 23 mg/dL [facility] Creatinine 1.43 (H) 0.70 - 1.20 mg/dL [facility] Glucose 98 65 - 99 mg/dL [facility] Calcium 8.7 (L) 8.8 - 10.2 mg/dL [facility] Specimen Blood Performing Organization Address City/[facility] Phon e Number [facility] DEPARTMENT OF PATHOLOGY AND [address] [place] [address] [phone] [address] Lactic acid level, SEPSIS - Now and repeat 2x every 3 hours (04/05/2020 7:23 PM CDT)Only the most recent of3 resultswithin the time period is included. Pathologist Sig nature Lactic acid 1.5 0.5 - 2.2 mmol/L [facility] Specimen Blood Performing Organization Address City/[facility] Phon e Number [facility] DEPARTMENT OF PATHOLOGY AND [address] [place], [place] [address] [address] [address] Urinalysis screen and microscopy, with reflex to culture (04/05/2020 4:30 PM CDT) Specimen site Clean catch [facility] Color, UA Straw [facility] Appearance, UA Clear [facility] Specific gravity, UA 1.011 1.001 - 1.035 [facility] pH, UA 6.0 5.0 - 8.5 [facility] Protein, UA Negative Negative [facility] Glucose, UA Negative Negative [facility] Ketones, UA Negative Negative [facility] Bilirubin, UA Negative Negative [facility] Blood, UA Negative Negative [facility] Nitrite, UA Negative Negative [facility] Urobilinogen, UA <2.0 <2.0 [facility] Leukocyte esterase, Negative Negative [facility] Epithelial cells, UA <1 /HPF [facility] WBC, UA None seen 0 - 1 /HPF [facility] RBC, UA <1 0 - 5 /HPF [facility] Bacteria, UA None seen None seen [facility] Yeast, UA None seen [facility] Yeast with None seen [facility] pseudohyphae, HOSPITAL Specimen Urine Performing Organization Address [facility] Phon e Number [facility] DEPARTMENT OF PATHOLOGY AND [address] [place] [address] [address] Blood culture, aerobic & anaerobic (04/05/2020 4:30 PM CDT)Only the most recent of2 resultswithin the time period is included. Blood culture No growth after 5 days of incubation. [facility] isolate Comment: HOSPITAL Specimen Information Specimen Source: Blood Specimen Site: Hand, left Specimen Blood - Hand, left Performing Organization Address [facility] Phon e Number [facility] DEPARTMENT OF PATHOLOGY AND [address] [place] [address] [phone] [address] Urine culture (04/05/2020 4:30 PM CDT) Pathologist Sig nature Urine culture SEE COMMENTComment: [facility] Bacteriuria screen HOSPITAL negative. Specimen Performing Organization Address [facility] Phon e Number [facility] DEPARTMENT OF PATHOLOGY AND [address] [place] [address] [phone] [address] [address] Abdomen Pelvis Wo Contrast (04/05/2020 3:01 PM CDT) Specimen Narrative Performed At EXAMINATION: CT ABDOMEN PELVIS WO CONT RAST [facility] CLINICAL HISTORY: Abd pain unspecifi ed TECHNIQUE: Noncontrast images of the abdomen and pelvi s were obtained without intravenous iodinated contrast. The lack of in travenous contrast limits assessment of the solid organs. CT imaging was performed with iterative reconstruction technique and/o r automated exposure control to reduce rad iation dose. COMPARISON: None FINDINGS: LOWER THORAX: Lateral right lower lobe consolidation. Minimal areas of interlobular septal thickening. 6 cm solid nodule in the lingula, i ndeterminate. Minimal bronchial thickening in the righ t lower lobe. Heart is marginal in size. Coronary artery calcificati ons are present. Small hiatal hernia. ABDOMEN: Liver: The liver is normal. No focal mas s. Gallbladder: The gallbladder is normal. Spleen: The spleen is not enlarged. Pancreas: The pancreas is unremarkable. Adrenal Glands: Thickening of both adrenal glands coul d be secondary to hyperplasia. Kidneys: Bilateral perinephric stranding is nonspecifi c but can be seen with medical renal disease. Abdominal Aorta: Scattered aortoiliac and bifemoral ca lcifications. Ostial calcification of the celiac axis, SMA and right renal artery. Nodes: No enlarged retroperitoneal or me senteric lymphadenopathy. Bowel: Small hiatal hernia. No bowel obstruction. Duod enal diverticuli noted. Postoperative changes related to prior low ante rior resection and creation of a left lower quadrant colostomy. There is mild thickening in the anterior abdominal wall just deep to the rectus fascia, and along the medial aspect of the stoma with abutment of the underlying small bowel which is mildly dilated measuring up to 3.5 cm. Findings could be postoperative. Appendi x is not visible, however no secondary signs of acute appendicitis. Rectal stump grossly unremarkable with f aint hyperdense foci. Other: No ascites or fluid collections. Small superior triangle left lumbar hernia with herniation of fat onl y. PELVIS: Pelvis: Distended urinary bladder. Postoperative rosen es of the prostate related to prior TURP. Subcentimeter iliac chain and i nguinal nodes are seen. Bones and soft tissues: Degenerative changes of the os seous structures. Chronic appearing compression fracture of L4 with appr oximately 40% body height loss superiorly. 4 mm disease of L2 on L3. IMPRESSION: 1.Partially visualized right lower lobe consolidation, likely pneumonia. Lingular pulmonary nodule is indeterminate. Given lack of priors, dedicated chest CT may be of benefit. 2.Postoperative changes related to prior low anterior resection and end colostomy creation in the left lower quadrant. There i s mild soft tissue thickening just along the medial aspect of the stoma a butting the rectus fascia and the underlying small bowel which is focally dilated measuring up to 3.4 cm. Findings suggestive of ileus although early obstruction is not excluded. Comparison with priors may be of benefit . 3.Additional findings as detailed above. [facility]-[id number] Procedure Note Interface, Radiology Results - 04/05/2020 3:25 PM CDT EXAMINATION: CT ABDOMEN PELVIS WO CONTRAST CLINICAL HISTORY: Abd pain unspecified TECHNIQUE: Noncontrast images of the abd omen and pelvis were obtained without intravenous iodinated contrast. The lack of intravenous contrast limits assessment of the solid organs. CT imaging was performed with iterative reconstruction technique and/o r automated exposure control to reduce rad iation dose. COMPARISON: None FINDINGS: LOWER THORAX: Lateral right lower lobe consolidation. Minimal areas of interlobular septal thickening. 6 cm solid nodule in the lingula, indeterminate. Minimal bronchial thickening in the right lower lobe. Heart is marginal in size. Coronary boogie ry calcifications are present. Small hiatal hernia. ABDOMEN: Liver: The liver is normal. No focal mas s. Gallbladder: The gallbladder is normal. Spleen: The spleen is not enlarged. Pancreas: The pancreas is unremarkable. Adrenal Glands: Thickening of both adren al glands could be secondary to hyperplasia. Kidneys: Bilateral perinephric stranding is nonspecific but can be seen with medical renal disease. Abdominal Aorta: Scattered aortoiliac an d bifemoral calcifications. Ostial calcification of the celiac axis, SMA and right renal artery. Nodes: No enlarged retroperitoneal or me senteric lymphadenopathy. Bowel: Small hiatal hernia. No bowel obs truction. Duodenal diverticuli noted. Postoperative changes related to prior low anterior resection and creation of a left lower quadrant colostomy. There is mild thickening in the anterior abdominal wall just deep to the rectus fascia, and along the med ial aspect of the stoma with abutment of the underlying small bowel which is mildly dilated measuring up to 3.5 cm. Findings could be postoperative. Appendix is not visible, however no secondary signs of acute appendicitis. Rectal stump grossly unrem arkable with faint hyperdense foci. Other: No ascites or fluid collections. Small superior triangle left lumbar hernia with herniation of fat only. PELVIS: Pelvis: Distended urinary bladder. Posto perative changes of the prostate related to prior TURP. Subcentimeter iliac chain and inguinal nodes are seen. Bones and soft tissues: Degenerative jose nges of the osseous structures. Chronic appearing compression fracture of L4 with approximately 40% body height loss superiorly. 4 mm disease of L2 on L3. IMPRESSION: 1.Partially visualized right lower lobe consolidation, likely pneumonia. Lingular pulmonary nodule is indeterminate. Given lack of priors, dedicated chest CT may be of benefit. 2.Postoperative changes related to prior low anterior resection and end colostomy creation in the left lower quadrant. There is mild soft tissue thickening just along the medial aspect of the stoma abutting the rectus fascia and the underlying small bowel which is focally dilated measuring up to 3.4 cm. Findings suggestive of ileus although early obstruction is not excluded. Comparison with priors may be of benefit. 3.Additional findings as detailed above. [facility]-[id number] Performing Organization Address City/[facility] Phon e Number [facility] [address] [place] [address] Lipase level (04/05/2020 1:22 PM CDT) Pathologist Sig nature Lipase 27 13 - 60 U/L [facility] Specimen Blood Performing Organization Address City/[facility] Phon e Number [facility] DEPARTMENT OF PATHOLOGY AND [address], [place] [address] GENOMIC MEDICINE [facility] [address] [place] [address] Comprehensive metabolic panel (04/05/2020 1:22 PM CDT) Sodium 137 135 - 148 [facility] mEq/L [facility] Potassium 3.6 3.5 - 5.0 [facility] mEq/L [facility] Chloride 102 98 - 112 [facility] mEq/L HOSPITAL CO2 23 (L) 24 - 31 mEq/L [facility] Anion gap 12@ANIO 7 - 15 mEq/L [facility] BUN 13 8 - 23 mg/dL [facility] Creatinine 1.29 (H) 0.70 - 1.20 [facility] mg/dL HOSPITAL Glucose 148 (H) 65 - 99 mg/dL [facility] Calcium 8.7 (L) 8.8 - 10.2 [facility] mg/dL HOSPITAL Protein 6.6 6.3 - 8.3 [facility] Comment: g/dL [facility] - [employer] 4.6-7.0 g/dL 1 week 4.4-7.6 g/dL 7 months-1year 5.1-7.3 g/dL 1-2 years 5.6-7.5 g/dL >3 years 6.0-8.0 g/dL 18-150 6.3-8.3 g/dL Albumin 3.2 (L) 3.5 - 5.0 [facility] g/dL HOSPITAL A/G ratio 0.9 0.7 - 3.8 [facility] Alkaline phosphatase 91 40 - 129 U/L [facility] AST 23 10 - 50 U/L [facility] ALT 16 5 - 50 U/L [facility] Total bilirubin 0.4 0.0 - 1.2 [facility] mg/dL HOSPITAL Specimen Blood Performing Organization Address City/State/ZIP Code Phon e Number [facility] DEPARTMENT OF PATHOLOGY AND [address] [place], [place] [address] GENOMIC MEDICINE [facility] [address] [place] [address] after 08/21/2019 Advance Directives For more information, please contact: [phone] Type Date Recorded Patient Manager Occupational Explanati on Advance Directives, Living Will and Medical Power of Home Energy Consultant Supervisor Advance Directives, 02/11/2019 12:00 AM Medical Po wer of Living Will and Home Energy Consultant Supervisor Medical Power of Home Energy Consultant Supervisor Advance Directives, 02/26/2019 6:09 AM POA Living Will and Medical Power of Home Energy Consultant Supervisor Code Status Date Activated Date Inactivated Comments Full Code 02/18/2019 3:23 PM 02/23/2019 7:56 PM Code Status decision reached by: Patient
--- OUTSIDE RECORDS SUMMARY | 2020-08-21 16:03 | XMS REPORT | Continuity of Care Document ---
:[address] [facility] t Address [address] [place] [address] Care Team Providers Name Role Phone Elizabeth LUCERO Primary Care Physician Jose WESTON Attending Clinician Unavailable Chel AREVALO Attending Clinician Unavailable Terrell Younger DO Attending Clinician Elvia Garcia MD Attending Clinician Aaron Johnson MD Attending Clinician CLARISSA Admitting Clinician Unavailable Payers Payer Name Policy Type Policy Effective Expiration Source Number Date Date TEXANPLUSTEXANPLUS [id number] 2008 [place] [id number] 2008-Pr 00:00:00 M ethodist esentHMO Problems Condition Condition Condition Status Onset Resolution Last Treating Co mments Source Name Details Category Date Date Treatment Clinician Date Pneumonia Pneumonia Disease Active [place] ston of right of right 5-28 Method i lower lobe lower lobe 00:00: st due to due to 00 infectious infectious organism organism 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 Social History Social Habit Start Date Stop Date Quantity Comments Source History SDOH [place] Meth odist Alcohol Std Drinks History [facility] Meth odist Alcohol Binge Sex Assigned At [facility] ethodist Cigarettes smoked 2020-04-05 2020-04-05 Zachery Cruz current (pack per 00:00:00 00:00:00 day) - Reported Cigarette 2020-04-05 2020-04-05 Zachery Le ist pack-years 00:00:00 00:00:00 Tobacco use and 2020-04-05 2020-04-05 Never used Zachery Burkett ethodist exposure 00:00:00 00:00:00 Alcohol intake 2020-04-05 2020-04-05 Current [place] thodist 00:00:00 00:00:00 non-drinker of alcohol (finding) History SDFL 2019-02-09 2019-02-09 1 [place] Meth odist Alcohol Frequency 00:00:00 00:00:00 Alcohol Comment 2018-03-02 2018-03-02 quit 15 years [place] [facility] [place] 00:00:00 00:00:00 ago History of tobacco 2003-03-02 Current smoker [place] [facility] use 00:00:00 Smoking Status Start Date Stop Date Source Former smoker 2020-04-05 00:00:00 2020-04-05 00:00:00 Zachery Cruz Medications Ordered Filled Start Stop Current Ordering Indication Dosage Frequency Signature Comments Components Source Medication Medication Date Date Medication? Clinician (SIG) Name Name lisinopril 2020-0 Yes 20mg QD Take 20 mg [place] (PRINIVIL,Z 5-30 by mouth Meth [facility]ina ESTRIL) 20 14:26: every st mg tablet 02 morning. clopidogrel 2020-0 Yes 75mg QD Take 75 mg [place] (PLAVIX) 75 5-30 by mouth [facility] [place] mg tablet 14:26: daily. st 02 pravastatin 2020-0 Yes 40mg QD Take 40 mg [place] (PRAVACHOL) 5-30 by mouth Meth [facility] 40 MG 14:26: nightly. st tablet 02 pantoprazol 2020-0 Yes 40mg QD Take 40 mg [place] e 5-30 by mouth [facility] (PROTONIX) 14:26: every st 40 MG EC 02 morning. tablet metoprolol 2020-0 Yes 50mg Q.5D Take 50 mg [place] tartrate 5-30 by mouth 2 Metho di (LOPRESSOR) 14:26: (two) st 50 mg 02 times a tablet day. fexofenadin 2020-0 Yes 180mg QD Take 180 [place] e (MARINA) 5-30 mg by [facility] 180 MG 14:26: mouth st tablet 02 every morning. albuterol 2020-0 Yes 2{puff} Q6H Inhale 2 [place] (PROAIR 5-30 puffs [facility] HFA,PROVENT 14:26: every 6 st [place] 02 (six) HFA,VENTOLI hours as N HFA) 90 needed for mcg/actuati wheezing. on inhaler traMADoL 2020-0 Yes acute pain 50mg Q4H Take 50 mg [place] (ULTRAM) 50 5-30 by mouth [facility] [place] mg tablet 14:26: every 4 st 02 (four) hours as needed for moderate pain .acute pain. diphenhydrA 2020-0 Yes 25mg Q24H Take 25 mg [place] MINE 5-30 by mouth [facility] (BENADRYL) 14:26: daily as st 25 mg 02 needed for tablet sleep. amLODIPine 2020-0 Yes 5mg QD Take 5 mg [place] (NORVASC) 5 5-30 by mouth Meth [place] mg tablet 14:26: every st 02 morning. gabapentin 2020-0 Yes 100mg Q.5D Take 100 [place] (NEURONTIN) 5-30 mg by [facility] 100 mg 14:26: mouth 2 st capsule 02 (two) times a day. amoxicillin 2020-0 2020- No 1{tbl} Q.5D Take 1 [place] -pot 5-30 06-06 tablet by [facility] clavulanate 00:00: 23:[address] (Augmentin) 00 :00 (two) 875-125 mg times a per tablet day for 7 days. azithromyci 2020-0 2020- No Pneumonia 250mg QD Take 1 [place] n 5-30 06-04 of right tablet [facility] (Zithromax) 00:00: 23:59 lower lobe ([address] 250 MG 00 :00 due to total) by tablet infectious mouth organism daily for 5 days. Take 2 tablets the first day, then 1 tablet daily for 4 days. aspirin 2020-0 2020- No 81mg QD Take 81 mg Kylah ston (ECOTRIN) 5-28 05-28 by mouth Metho di 81 MG 17:48: 00:[address] enteric 09 :00 coated tablet Vital Signs Vital Name Observation Time Observation Value Comments Source Systolic blood 2020-04-07 11:39:10 118 mm[Hg] [place] [place] pressure Diastolic blood 2020-04-07 11:39:10 58 mm[Hg] [place] on [facility] pressure Heart rate 2020-04-07 11:39:10 52 /min Zachery Cruz Body temperature 2020-04-07 11:39:10 35.72 Lizeth [place] [facility] Respiratory rate 2020-04-07 11:39:10 18 /min [place] [facility] Oxygen saturation in 2020-04-07 11:39:10 98 /min Zachery Cruz Arterial blood by Pulse oximetry Body height 2020-04-05 20:22:00 165.1 cm Zachery Cruz Body weight 2020-04-05 20:22:00 75.751 kg Zachery Cruz BMI 2020-04-05 20:22:00 27.79 kg/m2 Zachery Cruz Procedures Procedure Date / Time Performed Performing Clinician Sour e HC COMPLETE BLD COUNT 2020-04-07 05:10:00 Ana Garcia W/AUTO DIFF BASIC METABOLIC PANEL 2020-04-07 05:10:00 Ana Garcia ESTIMATED GFR 2020-04-07 05:10:00 Ana Garcia Meth odist BASIC METABOLIC PANEL 2020-04-06 04:30:00 Ana Garcia HC COMPLETE BLD COUNT 2020-04-06 04:30:00 Ana Garcia W/AUTO DIFF ESTIMATED GFR 2020-04-06 04:30:00 Ana Garcia odkay LACTIC ACID LEVEL, SEPSIS 2020-04-05 19:23:00 Milan Younger - NOW AND REPEAT 2X EVERY 3 HOURS BLOOD CULTURE, AEROBIC & 2020-04-05 16:30:00 Chapin Gardiner ANAEROBIC URINE CULTURE 2020-04-05 16:30:00 Milan Younger ethodi URINALYSIS SCREEN AND 2020-04-05 16:30:00 Milan Younger MICROSCOPY, WITH REFLEX TO CULTURE LACTIC ACID LEVEL, SEPSIS 2020-04-05 16:30:00 Milan Younger - NOW AND REPEAT 2X EVERY 3 HOURS BLOOD CULTURE, AEROBIC & 2020-04-05 16:09:[address] ABDOMEN PELVIS WO 2020-04-05 15:01:06 Chapin Gardiner CONTRAST HC COMPLETE BLD COUNT 2020-04-05 13:22:00 Milan Younger W/AUTO DIFF COMPREHENSIVE METABOLIC 2020-04-05 13:22:00 Milan Younger PANEL LIPASE LEVEL 2020-04-05 13:22:00 Milan Younger ethodist LACTIC ACID LEVEL, SEPSIS 2020-04-05 13:22:00 Milan Younger - NOW AND REPEAT 2X EVERY 3 HOURS ESTIMATED GFR 2020-04-05 13:22:00 Milan Younger ethodist Plan of Care Planned Activity Planned Date Details Comments Source Future Scheduled 2020-06-09 INFLUENZA VACCINE [place] [facility] 00:00:00 [code = INFLUENZA VACCINE] Future Scheduled 1996 65+ PNEUMOCOCCAL [facility] [facility] 00:00:00 VACCINE (1 of 1 - PPSV23) [code = 65+ PNEUMOCOCCAL VACCINE (1 of 1 - PPSV23)] Future Scheduled 1981 SHINGLES VACCINES (#1) [place] [facility] Test 00:00:00 [code = SHINGLES VACCINES (#1)] Encounters Start End Encounter Admission Attending Care Care Encounter Source Date/Time Date/Time Type Type Clinicians Facility Department ID 2020-04-05 2020-04-07 Inpatient ANA GARCIA [facility] [id number] [place] 00:00:00 00:00:[address] Results Test Description Test Time Test Comments Results Result Comments Source Blood culture, aerobic & anaerobic 2020-04-10 19:33:08 Test Item Value Reference Range Interpretation Comme nts Blood culture isolate No growth after 5 days of Specimen InformationSpecimen (test code = 600-7) incubation. Source: BloodSpecimen Site: Hand, left [place] [facility]Basic metabolic [id number] 07:10:16 Test Item Value Reference Range Interpretation Comments Sodium (test code = 2951-2) 137 135- 148 mEq/L Potassium (test code = 2823-3) 3.9 3.5- 5.0 mEq/L Chloride (test code = 2075-0) 103 98- 112 mEq/L CO2 (test code = 2027-) 22 24- 31 mEq/L L Anion gap (test code = 63396-8) 12@ANIO 7- 15 mEq/L BUN (test code = 3094-0) 12 mg/dL 8-23 Creatinine (test code = 2160-0) 1.43 mg/dL 0.7-1.2 H Glucose (test code = 2345-7) 98 mg/dL 65-99 Calcium (test code = 83871-2) 8.7 mg/dL 8.8-10.2 L Lab Interpretation (test code = Abnormal 80143-1) Zachery MethodistEstimated [id number] 07:10:15 Test Item Value Reference Range Interpretation Comments Estimated GFR (test 43 mL/min/1.73 m2 A [place] ortristen Units code = 5488) InterpretationG 1 >=90 Rayna l or highG2 60-89 Mildly decrease dG3a 45-59 Mil dly to moderately decr [id number] 30-44 Moderately to s everely decreasedG4 15-29 Severe ly decreasedG5 <15 Kidney shameka lureThe eGFR was calcul ated using the Chron ic Kidney Disease Epidemiology Collaboration ( CKD-EPI) equation. Interpretation is based on recommendati ons of the National Ki dney Foundation-Kidn ey Disease Outcome s Quality Initiat jb (NKF-KDOQI) pub lished in 2013. Lab Interpretation Abnormal (test code = 74372-8) Zachery MethodistCBC with platelet and [id number] 06:11:13 Test Item Value Reference Range Interpretation Comments WBC (test code = 90471-9) 5.64 4.50- 11.00 k/uL RBC (test code = 80696-2) 3.95 m/uL 4.4-6 L HGB (test code = 718-7) 11.5 g/dL 14-18 L HCT (test code = 4544-3) 34.9 % 41-51 L MCV (test code = 787-2) 88.4 fL 82-100 MCH (test code = 785-6) 29.1 pg 27-34 MCHC (test code = 786-4) 33.0 g/dL 31-37 RDW - SD (test code = 43.9 fL 37-55 88565-4) MPV (test code = 13044-6) 10.2 fL 8.8-13.2 Platelet count (test code 249 150- 400 k/uL = 18266-4) Nucleated RBC (test code 0.00 /100 WBC = 09450-0) Neutrophils (test code = 57.8 % 39-69 48209-7) Lymphocytes (test code = 17.2 % 25-45 L 48947-1) Monocytes (test code = 16.7 % 0-10 H 49428-8) Eosinophils (test code = 6.9 % 0-5 H 59797-6) Basophils (test code = 0.7 % 0-1 31533-3) Immature granulocytes 0.7 % 0-1 "Immat ure (test code = 13275-0) granul ocytes" (promyelocytes, myelocytes, metamyelocytes) Lab Interpretation (test Abnormal code = 20777-0) Zachery MethodistLactic acid level, SEPSIS - Now and repeat 2x every 3 hours 2020-04-05 19:59:58 Test Item Value Reference Range Interpretation Comments Lactic acid (test code = 76503-6) 1.5 mmol/L 0.5-2.2 Zachery MethodistUrinalysis screen and microscopy, with reflex to culture 2020-04-05 17:34:57 Test Item Value Reference Range Interpretation Comments Specimen site (test code = Clean catch 2400848) Color, UA (test code = 5778-6) Straw Appearance, UA (test code = Clear 5767-9) Specific gravity, UA (test code = 1.011 1.001-1.035 5811-5) pH, UA (test code = 5803-2) 6.0 5.0-8.5 Protein, UA (test code = 07876-1) Negative Negative Glucose, UA (test code = 36460-8) Negative Negative Ketones, UA (test code = 2514-8) Negative Negative Bilirubin, UA (test code = Negative Negative 5770-3) Blood, UA (test code = 5794-3) Negative Negative Nitrite, UA (test code = 5802-4) Negative Negative Urobilinogen, UA (test code = <2.0 <2.0 66690-5) Leukocyte esterase, UA (test code Negative Negative = 5799-2) Epithelial cells, UA (test code = <1 /HPF 5787-7) WBC, UA (test code = 5821-4) None seen 0- 1 /HPF RBC, UA (test code = 18716-4) <1 0- 5 /HPF Bacteria, UA (test code = None seen None seen 58536-7) Yeast, UA (test code = 73052-2) None seen Yeast with pseudohyphae, UA (test None seen code = 08150-9) [place] MethodistUrine [id number] 17:11:23 Test Item Value Reference Range Interpretation Comments Urine culture (test SEE COMMENT Bacteriu radha screen code = 8276054) negative. [place] MethodistCT Abdomen Pelvis Wo [id number] 15:22:35Hm Interface, Radiology Results 04/05/2020 3:25 PM CDTEXAMINATION: CT ABDOMEN PELVIS WOCONTRASTCLINICAL HISTORY: Abd pain unspecifiedTECHNIQUE: Noncontrast images of the abdomen and pelvis were obtained without intravenous iodinated contrast. The lack of intravenous contrast limits assessment of the solid organs. CT imaging was performed with iterative reconstruction technique and/or automated exposure control to reduce radiation dose.COMPARISON: NoneFINDINGS:LOWER THORAX:Lateral right lower lobe consolidation. Minimal areas of interlobular septal thickening. 6 cm solid nodule in the lingula, indeterminate. Minimal bronchial thickening in the right lower lobe.Heart is marginal in size. Coronary artery calcifications are present. Small hiatal hernia.ABDOMEN:Liver: The liver is normal. No focal mass.Gallbladder: The gallbladder is normal.Spleen: The spleen is not enlarged.Pancreas:The pancreas is unremarkable.Adrenal Glands: Thickening of both adrenal glands could be secondary tohyperplasia.Kidneys: Bilateral perinephric stranding is nonspecific but can be seen with medical renal disease.Abdominal Aorta: Scattered aortoiliac and bifemoral calcifications. Ostial calcification of the celiac axis, SMA and right renal artery.Nodes: No enlarged retroperitoneal or mesenteric lymphad enopathy.Bowel: Small hiatal hernia. No bowel obstruction. Duodenal diverticuli noted. Postoperativechanges related to prior low anterior resection and [...] acute appendicitis. Rectal stump grossly unremarkable with faint hyperdense foci.Other: No ascitesor fluid collections. Small superior triangle left lumbar hernia with herniation of fat only.PELVIS:P nancy: Distended urinary bladder. Postoperative changes of the prostate related to prior TURP. Subcentimeter iliac chain and inguinal nodes are seen.Bones and soft tissues: Degenerative changes of the osseous structures. Chronic appearing compression fracture of L4 with approximately 40% body height loss superiorly. 4 mm disease of L2 on L3.IMPRESSION:1.Partially visualized right lower lobe consolidation, likely pneumonia. Lingular pulmonary nodule is indeterminate. Given lack of priors, dedicated chest CT may be of benefit.2.Postoperative changes related to prior low anterior resection [...] excluded. Comparison with priors may be of benefit.3.Additional findings as detailed above.[facility]-[id number] MethodistComprehensive metabolic [id number] 14:09:44 Test Item Value Reference Range Interpretation Comments Sodium (test code = 137 135- 148 mEq/L 2951-2) Potassium (test code = 3.6 3.5- 5.0 mEq/L 2823-3) Chloride (test code = 102 98- 112 mEq/L 5-0) CO2 (test code = 2027-9) 23 24- 31 mEq/L L Anion gap (test code = 12@ANIO 7- 15 mEq/L 38751-7) BUN (test code = 3094-0) 13 mg/dL 8-23 Creatinine (test code = 1.29 mg/dL 0.7-1.2 H 2160-0) Glucose (test code = 148 mg/dL 65-99 H 2345-7) Calcium (test code = 8.7 mg/dL 8.8-10.2 L 34627-6) Protein (test code = 6.6 g/dL 6.3-8.3 -[place] n 2885-2) 4.6-7.0 g/dL1 week 4.4-7 .6 g/dL7 months-1y ear 5.1-7 .3 g/dL1-2 years 5.6-7 .5 g/dL>3 years 6.0-8 .0 g/wJ08-189 6.3-8 .3 g/dL Albumin (test code = 3.2 g/dL 3.5-5 L 175-7) A/G ratio (test code = 0.9 0.7-3.8 1759-0) Alkaline phosphatase 91 U/L 40-129 (test code = 6768-6) AST (test code = 1920-8) 23 U/L 10-50 ALT (test code = 1742-6) 16 U/L 5-50 Total bilirubin (test 0.4 mg/dL 0-1.2 code = 1975-2) Lab Interpretation (test Abnormal code = 60581-0) Zachery CruzLipase [id number] 14:09:44 Test Item Value Reference Range Interpretation Comments Lipase (test code = 3040-3) 27 U/L 13-60 Zachery Cruz
[2020-08-21] MEDS ORDERED: ONDANSETRON 4 MG/2 ML VIAL ONE (17:56)
[2020-08-21] MEDS ORDERED: DICYCLOMINE HCL 10 MG CAP ONE (17:57)
[2020-08-21 17:59] LABS: Absolute Lymphocytes (CBC) 1.5 K/uL (0.7-4.9); Basophils % 1.2 % (0-1.3); Lymphocytes % 21.9 % (15.3-44.8); MPV 8.1 fL (7.6-11.3); RBC Red Blood Cell Count 3.93 M/uL (4.33-5.43)
[2020-08-21 18:15] LABS: Albumin 3.4 g/dL (3.4-5.0); Bilirubin Direct 0.1 mg/dL (0-0.2); Bilirubin Total 0.4 mg/dL (0.2-1.0); Potassium 3.8 mmol/L (3.5-5.1); Protein, Total 6.8 g/dL (6.4-8.2)
--- NOTE | 2020-08-21 18:32 | RAD REPORT ---
EXAM DESCRIPTION: RAD - Chest Single View - 08/21/2020 6:01 pm CLINICAL HISTORY: COUGH COMPARISON: March 2020 TECHNIQUE: AP portable chest image was obtained 08/21/2020 6:01 pm . FINDINGS: No focal lung parenchymal process. Interstitial markings are prominent but not clearly dif ferent from comparison. Apical scarring changes noted on the right similar to comparison. Heart and v asculature are normal. No measurable pleural effusion and no pneumothorax. No acute bony abnormality seen. No acute aortic findings suspected. IMPRESSION: No acute cardiopulmonary process. Chest not clearly different from comparison.
--- NOTE | 2020-08-21 18:45 | RAD REPORT ---
EXAM DESCRIPTION: CT - Abdomen Pelvis W Contrast - 08/21/2020 6:10 pm CLINICAL HISTORY: ABD PAIN COMPARISON: Abdomen Pelvis W Contrast dated 10/15/2018 TECHNIQUE: Biphasic, helical CT imaging of the abdomen and pelvis was performed following 100 ml non -ionic IV contrast. No oral contrast administered. All CT scans are performed using dose optimization technique as appropriate and may include automated exposure control or mA/KV adjustment according to patient size. FINDINGS: No suspicious findings in the lung bases. The liver, spleen, and pancreas show no suspicious findings. Gallbladder is contracted. An acute proc ess not suspected. No biliary tree dilatation. Symmetric renal function is seen with no hydronephrosis or suspicious renal mass. No pyelonephritis o r acute parenchymal process. No bladder abnormalities. No adrenal abnormalities. No gastric dilatation or wall thickening. No small bowel abnormality. Right-side of the colon shows n o suspicious finding. Distal rectal anastomotic site also without suspicious finding. Patient has a l eft mid abdomen colostomy. There is herniation of fat through the abdominal wall defect causing protr usion of the stoma. No herniation of small bowel or colon. No free air, free fluid or inflammatory stranding. No mass or bulky lymphadenopathy. No acute bone finding. Partial compression of the L4 body matches comparison. 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 IMPRESSION: Herniation of fat at the left mid abdomen colostomy site causes protrusion of the stoma. No wall thickening or edema at this site. No herniation of small bowel or other portions of the colo n. The remainder the study, as detailed above, similar to October 2018.
--- NOTE | 2020-08-21 19:10 | EDPHYS ---
Physician Documentation [facility] Name: Ruchi Rivers Age: 89 yrs Sex: Male : 1930 Arrival Date: 08/21/2020 Time: 15:53 Bed 13 Private MD: ED Physician Cory Smith HPI: 08/21 17:35 This 89 yrs old Male presents to ER via Ambulatory with complaints of Hernia cp Pain. 17:35 The patient presents with abdominal pain in the lower abdomen. cp 17:35 Onset: The symptoms/episode began/occurred gradually, and became worse 2 month(s) ago. cp 17:35 The symptoms do not radiate. Associated signs and symptoms: Pertinent negatives: blood cp in stools, chest pain, constipation, diarrhea, dysuria, fever, vomiting. The symptoms are described as waxing/waning. 17:35 Patient reports having bowel resection surgery with colostomy 2-[address] Gomez. cp Daughter reports noticing enlargement of stoma over past several months with pain. Daughter reports patient was seen by DR Rose who has referred patient to a surgeon for evaluation. Historical: - Allergies: 16:00 No Known Allergies; jd3 - PMHx: 16:00 Hyperlipidemia; Hypertension; shingles; Diverticulitis; cardiac stent; jd3 - PSHx: 16:00 Heart stents; bowel resection with colostomy; jd3 - Immunization history:: Adult Immunizations up to date. - Social history:: Smoking status: Patient denies any tobacco usage or history of. ROS: 17:40 Constitutional: Negative for body aches, chills, fever, poor PO intake. cp 17:40 Eyes: Negative for injury, pain, redness, and discharge. cp Exam: 17:45 Constitutional: The patient appears in no acute distress, alert, awake, non-toxic, well cp developed, well nourished. 17:45 Head/Face: Normocephalic, atraumatic. cp 17:45 Eyes: Periorbital structures: appear normal, Conjunctiva: normal, no exudate, no injection, Sclera: no appreciated abnormality, Lids and lashes: appear normal, bilaterally. 17:45 ENT: External ear(s): are unremarkable, Nose: is normal, Posterior pharynx: Airway: no evidence of obstruction, patent. 17:45 Chest/axilla: Inspection: normal, Palpation: is normal, no crepitus, no tenderness. 17:45 Cardiovascular: Rate: bradycardic, Rhythm: regular, Edema: is not appreciated, JVD: is not appreciated. 17:45 Respiratory: the patient does not display signs of respiratory distress, Respirations: normal, no use of accessory muscles, no retractions, labored breathing, is not present, Breath sounds: bronchial sounds, that are mild, are heard diffusely, decreased breath sounds, are not appreciated, stridor, is not appreciated, wheezing: is not appreciated. 17:45 Abdomen/GI: Inspection: protruding stoma left lower abdomen, Bowel sounds: active, all quadrants, Palpation: soft, in all quadrants, mild abdominal tenderness, in the right lower quadrant and left lower quadrant, rebound tenderness, is not appreciated, voluntary guarding, is elicited in the left lower quadrant. 17:45 Back: pain, is absent, ROM is normal. 17:45 Skin: no rash present. Vital Signs: 16:01 BP 147 / 63; Pulse 59; Resp 17 S; Temp 98.4(O); Pulse Ox 98% on R/A; Weight 74.84 kg jd3 (R); Height 5 ft. 0 in. (152.40 cm) (R); Pain 7/10; 19:19 BP 161 / 79; Pulse 55; Resp 18; Pulse Ox 98% on R/A; mg2 16:01 Body Mass Index 32.22 (74.84 kg, 152.40 cm) jd3 MDM: 17:27 Patient medically screened. 19:08 Data reviewed: vital signs, nurses notes, lab test result(s), radiologic studies, CT cp scan. 19:08 Counseling: I had a detailed discussion with the patient and/or guardian regarding: the cp historical points, exam findings, and any diagnostic results supporting the discharge/admit diagnosis, lab results, radiology results, the need for outpatient follow up, a general surgeon, to return to the emergency department if symptoms worsen or persist or if there are any questions or concerns that arise at home. Response to treatment: the patient's symptoms have markedly improved after treatment, VSS. Pain improved, and as a result, I will discharge patient. 08/21 17:29 Order name: Basic Metabolic Panel; Complete Time: 18:22 cp 10/13 18:53 Interpretation: Normal except: CL 108; GLUC 107; GFR 53; CA 8.2. cp 08/21 17:29 Order name: CBC with Diff; Complete Time: 18:22 cp 08/21 18:54 Interpretation: Normal except: RBC 3.93; HGB 11.9; HCT 35.0; MN% 13.8; EOSINOPHIL % 7.2.cp 08/21 17:29 Order name: XRAY Chest (1 view); Complete Time: 18:52 cp 08/21 17:29 Order name: Hepatic Function; Complete Time: 18:22 cp 08/21 18:54 Interpretation: Normal except: A/G 1.0. cp 08/21 17:29 Order name: Lipase; Complete Time: 18:22 cp 08/21 19:02 Order name: CREATININE WHOLE BLOOD; Complete Time: 19:07 EDMS 08/21 17:29 Order name: IV Saline Lock; Complete Time: 17:51 cp 08/21 17:29 Order name: Labs collected and sent; Complete Time: 17:51 cp 08/21 17:29 Order name: CT Abd/Pelvis - IV Contrast Only; Complete Time: 18:52 cp 08/21 18:55 Order name: PO challenge; Complete Time: 19:12 cp Administered Medications: 17:52 Drug: Zofran (Ondansetron) 4 mg Route: IVP; Site: left antecubital; ca1 19:26 Follow up: Response: No adverse reaction; Marked relief of symptoms mg2 17:57 Drug: Bentyl 20 mg Route: PO; ca1 19:26 Follow up: Response: No adverse reaction; Marked relief of symptoms mg2 Disposition: 08/21/20 19:09 Discharged to Home. Impression: Unspecified abdominal pain, Unspecified abdominal hernia without obstruction or gangrene. - Condition is Stable. - Discharge Instructions: Abdominal Pain, Adult, Hernia, Adult. - Prescriptions for Bentyl 20 mg Oral Tablet - take 2 tablet by ORAL route every 6 hours As needed; 40 tablet. - Medication Reconciliation Form, Thank You Letter, Antibiotic Education, Prescription Opioid Use form. - Follow up: Private Physician; When: 2 - 3 days; Reason: Recheck today's complaints, General Surgery. - Problem is an ongoing problem. - Symptoms have improved. Signatures: Dispatcher [employer] EDMS Darren Mccoy PA PA cp Theron Simpson RN RN jd3 Adarsh Hua RN RN mg2 Christine Lipscomb RN RN ca1 Corrections: (The following items were deleted from the chart) 18:53 18:22 Normal except: CL 108; GLUC 107; GFR 53. cp cp 19:27 19:09 08/21/2020 19:09 Discharged to Home. Impression: Unspecified abdominal pain; mg2 Unspecified abdominal hernia without obstruction or gangrene. Condition is Stable. Forms are Medication Reconciliation Form, Thank You Letter, Antibiotic Education, Prescription Opioid Use. Follow up: Private Physician; When: 2 - 3 days; Reason: Recheck today's complaints, General Surgery. Problem is an ongoing problem. Symptoms have improved. cp
--- NOTE | 2020-08-21 19:10 | ER ---
Nurse's Notes [facility] Name: Ruchi Rivers Age: 89 yrs Sex: Male : 1930 Arrival Date: 08/21/2020 Time: 15:53 Bed 13 Private MD: Diagnosis: Unspecified abdominal pain;Unspecified abdominal hernia without obstruction or gangrene Presentation: 08/21 15:58 Chief complaint: Patient's son or daughter states: adult child: "he has a colostomy bag jd3 and he is reporting pain because it has gotten big. it has torn in the past and they repaired it.". Coronavirus screen: At this time, the client does not indicate any symptoms associated with coronavirus-19. Ebola Screen: Patient negative for fever greater than or equal to 101.5 degrees Fahrenheit, and additional compatible Ebola Virus Disease symptoms. Initial Sepsis Screen: Does the patient meet any 2 criteria? No. Patient's initial sepsis screen is negative. Does the patient have a suspected source of infection? No. Patient's initial sepsis screen is negative. Risk Assessment: Do you want to hurt yourself or someone else? Patient reports no desire to harm self or others. Onset of symptoms was July 24, 2020. 15:58 Method Of Arrival: Ambulatory j 15:58 Acuity: VIRGILIO 3 jd3 Historical: - Allergies: 16:00 No Known Allergies; jd3 - PMHx: 16:00 Hyperlipidemia; Hypertension; shingles; Diverticulitis; cardiac stent; jd3 - PSHx: 16:00 Heart stents; bowel resection with colostomy; jd3 - Immunization history:: Adult Immunizations up to date. - Social history:: Smoking status: Patient denies any tobacco usage or history of. Screenin:30 Abuse screen: Denies threats or abuse. Denies injuries from another. Nutritional ca1 screening: No deficits noted. Tuberculosis screening: No symptoms or risk factors identified. Fall Risk IV access (20 points). Assessment: 17:30 General: Appears in no apparent distress. comfortable, Behavior is calm, cooperative, ca1 appropriate for age. Pain: Complains of pain in umbilical area Pain currently is 8 out of 10 on a pain scale. Pain began a month or 2 Is continuous. Neuro: Level of Consciousness is awake, alert, obeys commands, Oriented to person, place, time, situation. Cardiovascular: Heart tones S1 S2 present Capillary refill < 3 seconds Patient's skin is warm and dry. Respiratory: Airway is patent Respiratory effort is even, unlabored, Respiratory pattern is regular, symmetrical, Breath sounds are clear bilaterally. GI: Abdomen is round non-distended, Colostomy site is clean and dry. Ostomy appliance is intact. Bowel sounds present X 4 quads. Abd is soft and non tender X 4 quads. : No signs and/or symptoms were reported regarding the genitourinary system. EENT: No signs and/or symptoms were reported regarding the EENT system. Derm: Skin is intact, is healthy with good turgor, Skin is pink, warm \\T\\ dry. Musculoskeletal: Circulation, motion, and sensation intact. Capillary refill < 3 seconds. 19:05 General: Appears in no apparent distress. comfortable, Behavior is calm, cooperative. mg2 Neuro: Level of Consciousness is awake, alert, obeys commands, Oriented to person, place, time, situation. Cardiovascular: Capillary refill Patient's skin is warm and dry. Respiratory: Airway is patent Respiratory effort is even, unlabored, Respiratory pattern is regular, symmetrical. Derm: Skin is intact, is healthy with good turgor, Skin is pink, warm \\T\\ dry. normal. Musculoskeletal: Circulation, motion, and sensation intact. Capillary refill < 3 seconds. 19:18 Reassessment: po challenge tolerated. mg2 Vital Signs: 16:01 BP 147 / 63; Pulse 59; Resp 17 S; Temp 98.4(O); Pulse Ox 98% on R/A; Weight 74.84 kg jd3 (R); Height 5 ft. 0 in. (152.40 cm) (R); Pain 7/10; 19:19 BP 161 / 79; Pulse 55; Resp 18; Pulse Ox 98% on R/A; mg2 16:01 Body Mass Index 32.22 (74.84 kg, 152.40 cm) jd3 ED Course: 15:53 Patient arrived in ED. ds1 16:00 Triage completed. jd3 16:01 Arm band placed on. jd3 17:17 Christine Lipscomb, MICKEY is Primary Nurse. ca1 17:20 Darren Mccoy PA is PHCP. cp 17:20 Cory Smith MD is Attending Physician. cp 17:30 Patient has correct armband on for positive identification. Bed in low position. Call ca1 light in reach. Side rails up X 1. Pulse ox on. NIBP on. Warm blanket given. 17:30 No provider procedures requiring assistance completed. ca1 17:50 Inserted saline lock: 20 gauge in left antecubital area, using aseptic technique. Blood dh4 collected. 18:02 XRAY Chest (1 view) In Process Unspecified. EDMS 18:10 CT Abd/Pelvis - IV Contrast Only In Process Unspecified. EDMS 19:26 IV discontinued, intact, bleeding controlled, No redness/swelling at site. Pressure mg2 dressing applied. Administered Medications: 17:52 Drug: Zofran (Ondansetron) 4 mg Route: IVP; Site: left antecubital; ca1 19:26 Follow up: Response: No adverse reaction; Marked relief of symptoms mg2 17:57 Drug: Bentyl 20 mg Route: PO; ca1 19:26 Follow up: Response: No adverse reaction; Marked relief of symptoms mg2 Outcome: 19:09 Discharge ordered by MD. cp 19:26 Discharged to home ambulatory, with family. mg2 19:26 Condition: stable 19:26 Discharge instructions given to patient, family, Instructed on discharge instructions, follow up and referral plans. medication usage, Demonstrated understanding of instructions, follow-up care, medications, Prescriptions given X 1. 19:27 Patient left the ED. mg2 Signatures: Dispatcher [employer] EDND Angelika Hernandez ds1 Darren Mccoy PA PA cp Theron Simpson RN RN jAdarsh Arizmendi RN RN mg2 Christine Lipscomb RN RN ca1 Reji Rodgers dh4 Corrections: (The following items were deleted from the chart) 16:04 16:01 Pulse 59bpm; Resp 17bpm; Spontaneous; Pulse Ox 98% RA; Temp 98.4F Oral; 74.84 kg jd3 Reported; Height 5 ft. 0 in. Reported; BMI: 32.2; Pain 7/10; jd3
[2020-08-21 20:33] VITALS: TEMP 98.4; O2SAT 98
[2020-08-21 20:34] VITALS: BP 161/79
== END 2020-08-21 19:27 | disposition home or self-care (01) ==
LOC: ER 15:50
DX: K46.9 Unspecified abdominal hernia without obstruction or gangrene (principal); I10 Essential (primary) hypertension; Z95.818 Presence of other cardiac implants and grafts
CPT/HCPCS: 85025; 80048; 36415; 82565; 80076; 83690; 74177; 71045; Q9967; J2405; 96374; 99284